=== PATIENT | male | born 1965 | race American Indian/Alaskan Native ===

== ENCOUNTER 2018-01-11 09:11 | Inpatient (IN) | payer BC ==
[2018-01-11 09:16] VITALS: BMI 26.6
[2018-01-11] MEDS ORDERED: Alum-Mag Hydrox-Simethicone Susp (30 mL) PO ONE (09:26)
--- NOTE | 2018-01-11 09:26 | C.PDOC ---
History Of Present Illness 52 y/o male with history of HTN, CKD brought by EMS with c/o burning cp and dizziness, felt as if he was going to pass out and laid on floor. Patient denies loc, sob, headache or any other complaints at this time. Chief Complaint (Nursing): Chest Pain History Per: Patient History/Exam Limitations: no limitations Onset/Duration Of Symptoms: Days Current Symptoms Are (Timing): Still Present Past Medical History Reviewed: Historical Data, Nursing Documentation, Vital Signs Vital Signs: Last Vital Signs Temp 97.7 F 01/11/18 09:11 Pulse 66 01/11/18 09:11 Resp 18 01/11/18 09:11 BP 139/102 H 01/11/18 09:11 Pulse Ox 96 01/11/18 09:11 - Medical History PMH: HTN Surgical History: No Surg Hx Family History: States: No Known Family Hx - Social History Hx Alcohol Use: No Hx Substance Use: No - Immunization History Hx Tetanus Toxoid Vaccination: Yes Hx Influenza Vaccination: Yes Hx Pneumococcal Vaccination: Yes Review Of Systems Except As Marked, All Systems Reviewed And Found Negative. Cardiovascular: Positive for: Chest Pain Neurological: Positive for: Dizziness Physical Exam - Physical Exam Appears: Non-toxic, No Acute Distress Skin: Warm, Dry Head: Atraumatic, Normacephalic Eye(s): bilateral: Normal Inspection Oral Mucosa: Moist Neck: Normal ROM, Supple Chest: Symmetrical Cardiovascular: Rhythm Regular Respiratory: Normal Breath Sounds, No Rales, No Rhonchi, No Wheezing Gastrointestinal/Abdominal: Soft, No Tenderness, No Guarding, No Rebound Extremity: Normal ROM, No Pedal Edema, Capillary Refill (<2 seconds) Neurological/Psych: Oriented x3, Normal Speech, Normal Cognition ED Course And Treatment - Laboratory Results Result Diagrams: 01/15/18 06:02 01/15/18 06:02 ECG: Interpreted By Me, Viewed By Me ECG Rhythm: Sinus Rhythm Interpretation Of ECG: T wave inversion in V2, Normal access Rate From EC O2 Sat by Pulse Oximetry: 96 (RA) Pulse Ox Interpretation: Normal Medical Decision Making Medical Decision Making: Impression: Near syncope, Dizziness, Chest pain Plan: Blood work, UA, CXR, EKG Progress: Dr. Umanzor called back @ [phone] and instructed nephrology consult on patient. 2nd ECG : NSR @83BPM, Inverted T wave on V5-V6, II,, III, aVF Disposition - Disposition Disposition: HOSPITALIZED Disposition Time: 11:15 Condition: SERIOUS - Clinical Impression Clinical Impression: Chest pain, Acute non-ST segment elevation myocardial infarction - Ruthieibe Statement The provider has reviewed the documentation as recorded by the Dieudonne Tena All medical record entries made by the Ruthieibadrienne were at my direction and personally dictated by me. I have reviewed the chart and agree that the record accurately reflects my personal performance of the history, physical exam, medical decision making, and the department course for this patient. I have also personally directed, reviewed, and agree with the discharge instructions and disposition.
[2018-01-11 09:35] LABS: BASO % 0.7 % (0.0-2.0); EOS # 0.5 K/uL (0.0-0.7); EOS % 6.8 % (0.0-4.0); HEMOGLOBIN 12.7 g/dL (12.0-18.0); LYMPH # 2.4 K/uL (1.0-4.3); LYMPH % 33.3 % (20.0-40.0); MEAN CELL VOLUME 80.6 fL (80.0-94.0); MEAN CORPUSCULAR HEMOGLOBIN 26.6 pg (27.0-31.0); MEAN PLATELET VOLUME 7.6 fL (7.2-11.7); MONO # 0.4 K/uL (0.0-0.8); MONO % 6.2 % (0.0-10.0); NEUT # 3.8 K/uL (1.8-7.0); NRBC % 0.2 % (0.0-2.0); RBC 4.77 Mil/uL (4.40-5.90); RED CELL DISTRIBUTION WIDTH 13.3 % (11.5-14.5); WHITE BLOOD COUNT 7.1 K/uL (4.8-10.8)
[2018-01-11 09:47] LABS: ALB/GLOB RATIO 1.2 (1.0-2.1); ALBUMIN 3.8 g/dL (3.5-5.0); CALCIUM 9.4 mg/dl (8.6-10.4)
[2018-01-11] MEDS ORDERED: Aluminum Hydroxide/Magnesium Hydroxide Susp (30 mL) ONE (09:48)
--- NOTE | 2018-01-11 09:49 | RAD ---
Date of service: 01/11/2018 PROCEDURE: CHEST RADIOGRAPH, 1 VIEW HISTORY: Chest pain COMPARISON: None available. FINDINGS: LUNGS: The lungs are well inflated and clear. PLEURA: No pneumothorax or pleural fluid seen. CARDIOVASCULAR: Normal. OSSEOUS STRUCTURES: No significant abnormalities. VISUALIZED UPPER ABDOMEN: Normal. OTHER FINDINGS: None. IMPRESSION: No active pulmonary disease.
[2018-01-11 10:25] LABS: TROPONIN I 0.155 ng/mL (0.00-0.120)
[2018-01-11] MEDS ORDERED: Enoxaparin 80 mg Syringe SC STA (11:51)
[2018-01-11] MEDS ORDERED: Morphine 4 MG/ML VIAL IV ONE (11:51)
[2018-01-11] MEDS ORDERED: Enoxaparin 80 mg Syringe ONE (12:16)
[2018-01-11] MEDS ORDERED: Morphine 4 MG/ML VIAL ONE ×2 (12:17→19:10)
[2018-01-11] MEDS ORDERED: Metoprolol 1 mg/ml Inj IVP ONE (16:32)
[2018-01-11] MEDS ORDERED: Metoprolol Succinate 25 mg XL Tab PO ONE (16:32)
[2018-01-11] MEDS ORDERED: Metoprolol 1 mg/ml Inj ONE (17:04)
--- NOTE | 2018-01-11 17:29 | CP.PCM.HP ---
History of Present Illness - History of Present Illness History of Present Illness: wake up with chest pain burning feeling epigastric dizzy and like paasing out Present on Admission - Present on Admission Any Indicators Present on Admission: No Review of Systems - Review of Systems Systems not reviewed;Unavailable: Acuity of Condition, Unstable Vital Signs Review of Systems: bp 180 systolic - Constitutional Constitutional: As Per HPI - EENT Eyes: As Per HPI Ears: As Per HPI Nose/Mouth/Throat: As Per HPI - Cardiovascular Cardiovascular: Chest Pain at Rest, Lightheadedness - Respiratory Respiratory: As Per HPI - Gastrointestinal Gastrointestinal: Heartburn - Genitourinary Genitourinary: As Per HPI - Reproductive: Male Reproductive:Male: As Per HPI - Musculoskeletal Musculoskeletal: As Per HPI - Integumentary Integumentary: As Per HPI - Neurological Neurological: As Per HPI - Psychiatric Psychiatric: As Per HPI - Endocrine Endocrine: As Per HPI, Polyuria Additional Comments: dm - Hematologic/Lymphatic Hematologic: As Per HPI Past Patient History - Past Medical History & Family History Past Medical History?: Yes - Past Social History Smoking Status: Never Smoked - CARDIAC Hx Hypertension: Yes - RENAL Hx Renal Failure: Yes - PSYCHIATRIC Hx Substance Use: No - SURGICAL HISTORY Hx Surgeries: No - ANESTHESIA Hx Anesthesia: Yes Meds Allergies/Adverse Reactions: Allergies Allergy/AdvReac Type Severity Reaction Status Date / Time No Known Allergies Allergy Verified 01/11/18 10:46 Physical Exam - Constitutional Appears: Non-toxic - Head Exam Head Exam: NORMAL INSPECTION - Eye Exam Eye Exam: Normal appearance Pupil Exam: NORMAL ACCOMODATION - ENT Exam ENT Exam: Mucous Membranes Moist - Neck Exam Neck exam: Positive for: Normal Inspection - Respiratory Exam Respiratory Exam: NORMAL BREATHING PATTERN - Cardiovascular Exam Cardiovascular Exam: REGULAR RHYTHM - GI/Abdominal Exam GI & Abdominal Exam: Normal Bowel Sounds - Rectal Exam Rectal Exam: NORMAL INSPECTION - Exam Exam: NORMAL INSPECTION - Extremities Exam Extremities exam: Positive for: normal inspection - Back Exam Back exam: NORMAL INSPECTION - Neurological Exam Neurological exam: Alert, Oriented x3 - Psychiatric Exam Psychiatric exam: Normal Mood - Skin Skin Exam: Normal Color Results - Vital Signs Recent Vital Signs: Last Vital Signs Temp 99.0 F 01/11/18 16:28 Pulse 85 01/11/18 16:28 Resp 20 01/11/18 16:28 BP 180/119 H 01/11/18 16:28 Pulse Ox 100 01/11/18 16:28 - Labs Result Diagrams: 01/11/18 09:31 01/11/18 09:31 Labs: Laboratory Results - last 24 hr 01/11/18 01/11/18 01/11/18 09:31 09:31 16:54 WBC 7.1 RBC 4.77 Hgb 12.7 Hct 38.5 MCV 80.6 MCH 26.6 L MCHC 33.0 RDW 13.3 Plt Count 234 MPV 7.6 Neut % (Auto) 53.0 Lymph % (Auto) 33.3 [place] % (Auto) 6.2 Eos % (Auto) 6.8 H Baso % (Auto) 0.7 Neut # (Auto) 3.8 Lymph # (Auto) 2.4 [place] # (Auto) 0.4 Eos # (Auto) 0.5 Baso # (Auto) 0.0 Sodium 139 Potassium 3.8 Chloride 104 Carbon Dioxide 21 L Anion Gap 18 BUN 42 H Creatinine 4.8 H Est GFR ( Amer) 15 Est GFR (Non-Af Amer) 13 Random Glucose 177 H Calcium 9.4 Total Bilirubin 0.6 AST 17 ALT 17 L Alkaline Phosphatase 91 Total Creatine Kinase 1040 H Troponin I 0.1550 H* Total Protein 7.0 Albumin 3.8 Globulin 3.3 Albumin/Globulin Ratio 1.2 Assessment & Plan - Assessment and Plan (Free Text) Assessment: ac chest pain htn dm crf Plan: admit and as per orders - Date & Time Date: 01/11/18 Time: 17:32
[2018-01-11 17:31] LABS: TROPONIN I 5.9 ng/mL (0.00-0.120)
[2018-01-11] MEDS ORDERED: Heparin25000 units/250ml 1/2NS 25,000 UNITS/250 ML BAG IV PRN ×2 (17:43→23:00)
[2018-01-11 18:38] LABS: INR 1.1; PROTHROMBIN TIME 11.8 SECONDS (9.7-12.2)
--- NOTE | 2018-01-11 19:02 | CP.PCM.CON ---
<Mumtaz Johansen L - Last Filed: 01/11/18 19:23> History of Present Illness - History of Present Illness History of Present Illness: Critical Care Progress Note Patient is a 52 year old male with past medical history of HTN, CKD presenting with chief complaint of chest pain. He states that around 8AM this morning he was walking when he began feeling dizzy. Soon after he started experiencing a burning sensation localized to his epigastric region, accompanied by diaphoresis and chills. He rates the pain a +8/10, denies radiation of the pain, or any difference in pain with positional changes. At that time he also began to feel as if he was about to pass out, which prompted his arrival at the ED. Currently he denies headache, dizziness, shortness of breath, abdominal pain, changes in bowel movements, dysuria. Of note, patient follows up regularly with a background check coordinator Dr. Reddy Bruce. Patient was found to have an NSTEMI and so ICU was consulted. In ED he was given morphine, metoprolol, hydralazine, famotidine, lovenox, aluminum hydroxide. PMH: HTN, CKD PSH: none Social history: Denies alcohol, tobacco product, illicit drug use. Lives at home with and two kids. Works as a selector packer. Family history: Father (85 yo, HTN) Mother ( at 58 due to complications of asthma) Allergies: NKDA PMD: none Review of Systems - Review of Systems All systems: reviewed and no additional remarkable complaints except (as stated in HPI) Past Patient History - Past Medical History & Family History Past Medical History?: Yes - Past Social History Smoking Status: Never Smoked Alcohol: None Drugs: Denies Home Situation {Lives}: With Family - CARDIAC Hx Hypertension: Yes - RENAL Hx Renal Failure: Yes - PSYCHIATRIC Hx Substance Use: No - SURGICAL HISTORY Hx Surgeries: No - ANESTHESIA Hx Anesthesia: Yes Meds Allergies/Adverse Reactions: Allergies Allergy/AdvReac Type Severity Reaction Status Date / Time No Known Allergies Allergy Verified 01/11/18 10:46 - Medications Medications: Current Medications Aspirin (Aspirin Chewable) 81 mg PO DAILY [facility] Clopidogrel Bisulfate (Plavix) 75 mg PO DAILY [facility] Last Admin: 01/11/18 17:56 Dose: 75 mg Hydralazine HCl (Apresoline) 50 mg PO BID [facility] Last Admin: 01/11/18 17:56 Dose: 50 mg Heparin Sodium/Sodium Chloride (Heparin 90048 Units/250ml 1/2 Normal Saline) 25,000 units in 250 mls @ 10.124 mls/hr IV .Q24H PRN; Protocol PRN Reason: PROTOCOL Pantoprazole Sodium (Protonix Inj) 40 mg IVP DAILY [facility] Physical Exam - Constitutional Appears: No Acute Distress - Head Exam Head Exam: ATRAUMATIC, NORMOCEPHALIC - Eye Exam Eye Exam: EOMI, Normal appearance, PERRL - ENT Exam ENT Exam: Mucous Membranes Moist, Normal Exam - Neck Exam Neck exam: Positive for: Normal Inspection - Respiratory Exam Respiratory Exam: Rales, NORMAL BREATHING PATTERN. absent: Rhonchi, Wheezes, Respiratory Distress, Stridor - Cardiovascular Exam Cardiovascular Exam: REGULAR RHYTHM, +S1, +S2 - GI/Abdominal Exam GI & Abdominal Exam: Normal Bowel Sounds, Soft. absent: Distended, Firm, Guarding, Organomegaly, Rebound, Rigid, Tenderness - Extremities Exam Extremities exam: Positive for: normal capillary refill, normal inspection, pedal pulses present. Negative for: pedal edema - Back Exam Back exam: NORMAL INSPECTION - Neurological Exam Neurological exam: Alert, CN II-XII Intact, Oriented x3, Reflexes Normal - Psychiatric Exam Psychiatric exam: Normal Affect, Normal Mood - Skin Skin Exam: Dry, Intact, Normal Color, Warm Results - Vital Signs Recent Vital Signs: Last Vital Signs Temp 99.0 F 01/11/18 16:28 Pulse 85 01/11/18 18:22 Resp 21 01/11/18 18:22 BP 177/127 H 01/11/18 18:22 Pulse Ox 97 01/11/18 18:22 - Labs Result Diagrams: 01/11/18 09:31 01/11/18 09:31 Labs: Laboratory Results - last 24 hr 01/11/18 01/11/18 01/11/18 09:31 09:31 16:54 WBC 7.1 RBC 4.77 Hgb 12.7 Hct 38.5 MCV 80.6 MCH 26.6 L MCHC 33.0 RDW 13.3 Plt Count 234 MPV 7.6 Neut % (Auto) 53.0 Lymph % (Auto) 33.3 [place] % (Auto) 6.2 Eos % (Auto) 6.8 H Baso % (Auto) 0.7 Neut # (Auto) 3.8 Lymph # (Auto) 2.4 [place] # (Auto) 0.4 Eos # (Auto) 0.5 Baso # (Auto) 0.0 PT INR APTT Sodium 139 Potassium 3.8 Chloride 104 Carbon Dioxide 21 L Anion Gap 18 BUN 42 H Creatinine 4.8 H Est GFR ( Amer) 15 Est GFR (Non-Af Amer) 13 Random Glucose 177 H Calcium 9.4 Total Bilirubin 0.6 AST 17 ALT 17 L Alkaline Phosphatase 91 Total Creatine Kinase 1040 H CK-MB (Mass) 103 H Troponin I 0.1550 H* 5.9000 H* Total Protein 7.0 Albumin 3.8 Globulin 3.3 Albumin/Globulin Ratio 1.2 01/11/18 18:22 WBC RBC Hgb Hct MCV MCH MCHC RDW Plt Count MPV Neut % (Auto) Lymph % (Auto) [place] % (Auto) Eos % (Auto) Baso % (Auto) Neut # (Auto) Lymph # (Auto) [place] # (Auto) Eos # (Auto) Baso # (Auto) PT 11.8 INR 1.1 APTT 30 Sodium Potassium Chloride Carbon Dioxide Anion Gap BUN Creatinine Est GFR ( Amer) Est GFR (Non-Af Amer) Random Glucose Calcium Total Bilirubin AST ALT Alkaline Phosphatase Total Creatine Kinase CK-MB (Mass) Troponin I Total Protein Albumin Globulin Albumin/Globulin Ratio Assessment & Plan - Assessment and Plan (Free Text) Assessment: Patient is a 52 year old male with past medical history of HTN, CKD presenting with chief complaint of chest pain and was admitted to ICU for workup and management of NSTEMI. Plan: Neuro: - AAO x3 Pulm: - nasal cannula PRN - maintain SpO2>92% CV: - currently hemodynamically stable - Cardiology Dr. Umanzor consulted. Appreciate recs. - aspirin 81 mg PO daily, plavix 75 mg PO daily - heparin drip - hydralazine 50 mg PO BID - followup ECHO GI: - Protonix 40 mg IVP daily - HHD Renal: - history of CKD, Cr 4.8 - Nephrology Dr. Pérez consulted. Appreciate recs. ID: - afebrile, no leukocytosis - no acute issues Heme/Onc - monitor H/H Endo: - maintain euglycemia PPX: Protonix 40 mg IVP daily, on heparin drip Case and plan was reviewed and discussed with Dr. Galdino Johansen PGY-1 - Date & Time Date: 01/11/18 Time: 19:10 <Shahid Ahmadi - Last Filed: 01/11/18 20:04> Meds - Medications Medications: Current Medications Aspirin (Aspirin Chewable) 81 mg PO DAILY [facility] Clopidogrel Bisulfate (Plavix) 75 mg PO DAILY [facility] Last Admin: 01/11/18 17:56 Dose: 75 mg Hydralazine HCl (Apresoline) 50 mg PO BID [facility] Last Admin: 01/11/18 17:56 Dose: 50 mg Heparin Sodium/Sodium Chloride (Heparin 23200 Units/250ml 1/2 Normal Saline) 25,000 units in 250 mls @ 10.124 mls/hr IV .Q24H PRN; Protocol PRN Reason: PROTOCOL Metoprolol Succinate (Toprol Xl) 25 mg PO DAILY [facility] Pantoprazole Sodium (Protonix Inj) 40 mg IVP DAILY [facility] Rosuvastatin Calcium (Crestor) 20 mg PO [facility] Results - Vital Signs Recent Vital Signs: Last Vital Signs Temp 99.0 F 01/11/18 16:28 Pulse 79 01/11/18 19:44 Resp 16 01/11/18 19:44 BP 166/97 H 01/11/18 19:44 Pulse Ox 100 01/11/18 19:44 - Labs Result Diagrams: 01/11/18 09:31 01/11/18 09:31 Labs: Laboratory Results - last 24 hr 01/11/18 01/11/18 01/11/18 09:31 09:31 16:54 WBC 7.1 RBC 4.77 Hgb 12.7 Hct 38.5 MCV 80.6 MCH 26.6 L MCHC 33.0 RDW 13.3 Plt Count 234 MPV 7.6 Neut % (Auto) 53.0 Lymph % (Auto) 33.3 [place] % (Auto) 6.2 Eos % (Auto) 6.8 H Baso % (Auto) 0.7 Neut # (Auto) 3.8 Lymph # (Auto) 2.4 [place] # (Auto) 0.4 Eos # (Auto) 0.5 Baso # (Auto) 0.0 PT INR APTT Sodium 139 Potassium 3.8 Chloride 104 Carbon Dioxide 21 L Anion Gap 18 BUN 42 H Creatinine 4.8 H Est GFR ( Amer) 15 Est GFR (Non-Af Amer) 13 Random Glucose 177 H Calcium 9.4 Total Bilirubin 0.6 AST 17 ALT 17 L Alkaline Phosphatase 91 Total Creatine Kinase 1040 H CK-MB (Mass) 103 H Troponin I 0.1550 H* 5.9000 H* Total Protein 7.0 Albumin 3.8 Globulin 3.3 Albumin/Globulin Ratio 1.2 01/11/18 18:22 WBC RBC Hgb Hct MCV MCH MCHC RDW Plt Count MPV Neut % (Auto) Lymph % (Auto) [place] % (Auto) Eos % (Auto) Baso % (Auto) Neut # (Auto) Lymph # (Auto) [place] # (Auto) Eos # (Auto) Baso # (Auto) PT 11.8 INR 1.1 APTT 30 Sodium Potassium Chloride Carbon Dioxide Anion Gap BUN Creatinine Est GFR ( Amer) Est GFR (Non-Af Amer) Random Glucose Calcium Total Bilirubin AST ALT Alkaline Phosphatase Total Creatine Kinase CK-MB (Mass) Troponin I Total Protein Albumin Globulin Albumin/Globulin Ratio Assessment & Plan - Assessment and Plan (Free Text) Plan: CCM 52 yo black male with hx HTN/CKD developed dizziness & weakness in AM. Subsequent sob & epigastric discomfort with diaphoresis. Pt to ED and vomited. Pain initially 10/10 now 7/10. Received NTG /BB /hydralazine. BP elevated in ED. No fever/ cough. Breathing better. ROS- asnoted All- NKDA Social- no tob/ etoh/ drugs Meds-reviewed FH- Unknown Alert male, nad Neck- no jvd lungs- bilat bs Heart-rr Abd- benign ext- no edema, nontender Neuro- nonfocal Labs, EKG,X-rays- reviewed A&P NSTEMI HTN Emergency CKD Admit to ICU cont meds /asa/plavix/ BB AC Optimize BP control Cardiology eval Nephrology eval ECHO Maintain optimal lytes f/u CE analgesia prn Critical care time with patient 40 min
[2018-01-11] MEDS ORDERED: Labetalol 5mg/ml (4ml) ONE (19:11)
[2018-01-11] MEDS ORDERED: Nitroglycerin 50mg in D5W 50 MG/250 ML BOTTLE IV SCH (21:00)
[2018-01-11] MEDS ORDERED: Labetalol 300 MG in Dextrose 5% In Water 240 ML IV ONE (21:45)
--- NOTE | 2018-01-11 23:06 | CP.PCM.CON ---
History of Present Illness - History of Present Illness History of Present Illness: 52 M with hx of CKD admitted with chest pain and non ST elevation CT Check ECHO Patient needs cardiac cath Need Renal evaluation clearance for Cath IV Heparin, ASA, Plavix, statins and B blockers Past Patient History - Past Medical History & Family History Past Medical History?: Yes - Past Social History Smoking Status: Never Smoked Alcohol: None Drugs: Denies Home Situation {Lives}: With Family - CARDIAC Hx Hypertension: Yes - RENAL Hx Renal Failure: Yes - PSYCHIATRIC Hx Substance Use: No - SURGICAL HISTORY Hx Surgeries: No - ANESTHESIA Hx Anesthesia: Yes Meds Allergies/Adverse Reactions: Allergies Allergy/AdvReac Type Severity Reaction Status Date / Time No Known Allergies Allergy Verified 01/11/18 10:46 - Medications Medications: Current Medications Aspirin (Aspirin Chewable) 81 mg PO DAILY [facility] Clopidogrel Bisulfate (Plavix) 75 mg PO DAILY [facility] Last Admin: 01/11/18 17:56 Dose: 75 mg Hydralazine HCl (Apresoline) 50 mg PO BID [facility] Last Admin: 01/11/18 17:56 Dose: 50 mg Heparin Sodium/Sodium Chloride (Heparin 19108 Units/250ml 1/2 Normal Saline) 25,000 units in 250 mls @ 10.124 mls/hr IV .Q24H PRN; Protocol PRN Reason: PROTOCOL Last Admin: 01/11/18 20:45 Dose: 12 units/kg/hr, 10.124 mls/hr Nitroglycerin/Dextrose (Nitroglycerin 50 Mg/250 Ml D5w) 50 mg in 250 mls @ 1.5 mls/hr IV .Q24H [facility]; Protocol Last Titration: 01/11/18 21:45 Dose: 0 mcg/min, 0 mls/hr Labetalol HCl 300 mg/ Dextrose 300 mls @ 120 mls/hr IV .Q2H30M ONE; Protocol Stop: 01/12/18 00:14 Metoprolol Succinate (Toprol Xl) 25 mg PO DAILY [facility] Pantoprazole Sodium (Protonix Inj) 40 mg IVP DAILY [facility] Rosuvastatin Calcium (Crestor) 20 mg PO HS [facility] Last Admin: 01/11/18 21:17 Dose: 20 mg Results - Vital Signs Recent Vital Signs: Last Vital Signs Temp 98.7 F 01/11/18 20:00 Pulse 72 01/11/18 22:30 Resp 15 01/11/18 22:30 BP 142/96 H 01/11/18 22:30 Pulse Ox 97 01/11/18 22:30 - Labs Result Diagrams: 01/11/18 09:31 01/11/18 09:31 Labs: Laboratory Results - last 24 hr 01/11/18 01/11/18 01/11/18 09:31 09:31 16:54 WBC 7.1 RBC 4.77 Hgb 12.7 Hct 38.5 MCV 80.6 MCH 26.6 L MCHC 33.0 RDW 13.3 Plt Count 234 MPV 7.6 Neut % (Auto) 53.0 Lymph % (Auto) 33.3 [place] % (Auto) 6.2 Eos % (Auto) 6.8 H Baso % (Auto) 0.7 Neut # (Auto) 3.8 Lymph # (Auto) 2.4 [place] # (Auto) 0.4 Eos # (Auto) 0.5 Baso # (Auto) 0.0 PT INR APTT Sodium 139 Potassium 3.8 Chloride 104 Carbon Dioxide 21 L Anion Gap 18 BUN 42 H Creatinine 4.8 H Est GFR ( Amer) 15 Est GFR (Non-Af Amer) 13 POC Glucose (mg/dL) Random Glucose 177 H Calcium 9.4 Total Bilirubin 0.6 AST 17 ALT 17 L Alkaline Phosphatase 91 Total Creatine Kinase 1040 H CK-MB (Mass) 103 H Troponin I 0.1550 H* 5.9000 H* Total Protein 7.0 Albumin 3.8 Globulin 3.3 Albumin/Globulin Ratio 1.2 01/11/18 01/11/18 18:22 21:17 WBC RBC Hgb Hct MCV MCH MCHC RDW Plt Count MPV Neut % (Auto) Lymph % (Auto) [place] % (Auto) Eos % (Auto) Baso % (Auto) Neut # (Auto) Lymph # (Auto) [place] # (Auto) Eos # (Auto) Baso # (Auto) PT 11.8 INR 1.1 APTT 30 Sodium Potassium Chloride Carbon Dioxide Anion Gap BUN Creatinine Est GFR ( Amer) Est GFR (Non-Af Amer) POC Glucose (mg/dL) 115 H Random Glucose Calcium Total Bilirubin AST ALT Alkaline Phosphatase Total Creatine Kinase CK-MB (Mass) Troponin I Total Protein Albumin Globulin Albumin/Globulin Ratio
[2018-01-12 06:43] LABS: BASO # 0.1 K/uL (0.0-0.2); BASO % 0.6 % (0.0-2.0); EOS % 0.3 % (0.0-4.0); HEMOGLOBIN 12.5 g/dL (12.0-18.0); MEAN CELL VOLUME 81.7 fL (80.0-94.0); MEAN CORPUSCULAR HEMOGLOBIN 26.6 pg (27.0-31.0); MEAN CORPUSCULAR HGB CONC 32.5 g/dL (33.0-37.0); MEAN PLATELET VOLUME 8.3 fL (7.2-11.7); MONO # 0.7 K/uL (0.0-0.8); MONO % 7.2 % (0.0-10.0); NEUT # 8.2 K/uL (1.8-7.0); NEUT % 81.9 % (50.0-75.0); NRBC % 0.1 % (0.0-2.0); RBC 4.7 Mil/uL (4.40-5.90); RED CELL DISTRIBUTION WIDTH 13.4 % (11.5-14.5)
[2018-01-12 06:56] LABS: CALCIUM 9.3 mg/dl (8.6-10.4)
[2018-01-12] MEDS ORDERED: Sodium Chloride 0.45% 1,000 ML IV ONE ×2 (09:02→12:40)
[2018-01-12] MEDS: Metoprolol Succinate 25 mg XL Tab PO SCH (10:16)
[2018-01-12] MEDS ORDERED: Lidocaine 2% PF (10 ml) Amp ONE (10:51)
--- NOTE | 2018-01-12 11:03 | CP.CCUPN ---
<Mumtaz Johansen L - Last Filed: 01/12/18 12:31> CCU Subjective - Physician Review Subjective (Free Text): Critical Care Progress Note Patient examined at bedside. He is resting comfortably in bed. Offers no complaints. Denies fevers, chills, chest pain, shortness of breath, abdominal pain, nausea, vomiting. Patient to receive cardiac cath today. Critical Care Time Spent (in minutes): 35 CCU Objective - Vital Signs / Intake & Output Vital Signs (Last 4 hours): Vital Signs Pulse Resp BP Pulse Ox 01/12/18 07:00 83 15 121/82 100 Intake and Output (Last 8hrs): Intake & Output 01/11/18 01/12/18 01/12/18 22:59 06:59 14:59 Intake Total 140.45 132.7 230.0 Output Total 400 300 Balance -259.55 -167.3 230.0 Weight 184 lb 14.4 oz Intake: IV 5.15 62.5 Intake, IV Amount 35.3 70.2 30.0 Left Forearm 30.0 RAC #18 5 10.5 Right Antecubital 30.3 59.7 Oral 100 200 Output: Urine 300 Urine, Voided 300 Emesis 400 Other: Voiding Method Urinal - Physical Exam Head: Positive for: Atraumatic, Normocephalic Pupils: Positive for: PERRL Extroacular Muscles: Positive for: EOMI Conjunctiva: Positive for: Normal Mouth: Positive for: Moist Mucous Membranes Respiratory/Chest: Positive for: Good Air Exchange, Rales. Negative for: Respiratory Distress Cardiovascular: Positive for: Regular Rate and Rhythm, Normal S1, S2 Abdomen: Positive for: Normal Bowel Sounds. Negative for: Tenderness, Distention Upper Extremity: Positive for: Normal Inspection, Normal ROM, NORMAL PULSES. Negative for: Cyanosis, Edema, Tenderness, Swelling Lower Extremity: Positive for: Normal Inspection, NORMAL PULSES, Normal ROM. Negative for: Edema, CALF TENDERNESS, Cyanosis Neurological: Positive for: GCS=15, CN II-XII Intact, Speech Normal Skin: Positive for: Warm, Dry, Normal Color. Negative for: Rashes Psychiatric: Positive for: Alert, Oriented x 3, Normal Insight, Normal Concentration - Medications Active Medications: Active Medications Generic Name Dose Route Start Last Admin Trade Name Freq PRN Reason Stop Dose Admin Aspirin 81 mg 01/12/18 10:00 Aspirin Chewable PO DAILY GERSON Clopidogrel Bisulfate 75 mg 01/11/18 17:45 01/11/18 17:56 Plavix PO 75 mg DAILY GERSON Administration Hydralazine HCl 50 mg 01/11/18 18:00 01/11/18 17:56 Apresoline PO 50 mg BID GERSON Administration Heparin Sodium/Sodium Chloride 25,000 units in 250 mls @ 10.124 mls/hr 01/11/18 23:00 01/12/18 02:45 Heparin 38130 Units/250ml 1/2 Normal Saline IV 9 units/kg/hr .Q24H PRN 7.593 mls/hr PROTOCOL Titration Protocol 12 UNITS/KG/HR Nitroglycerin/Dextrose 50 mg in 250 mls @ 1.5 mls/hr 01/11/18 21:00 01/12/18 06:00 Nitroglycerin 50 Mg/250 Ml D5w IV 0 mcg/min .Q24H GERSON 0 mls/hr Titration Protocol 5 MCG/MIN Sodium Chloride 1,000 mls @ 80 mls/hr 01/12/18 09:02 Sodium Chloride 0.45% IV 01/12/18 21:31 .[id number] ONE Metoprolol Succinate 25 mg 01/12/18 10:00 Toprol Xl PO DAILY [facility] Pantoprazole Sodium 40 mg 01/12/18 10:00 Protonix Inj IVP DAILY [facility] Rosuvastatin Calcium 20 mg 01/11/18 22:00 01/11/18 21:17 Crestor PO 20 mg HS GERSON Administration - Patient Studies Lab Studies: Lab Studies 01/12/18 01/12/18 01/12/18 Range/Units 07:47 06:32 06:32 WBC (4.8-10.8) K/uL RBC (4.40-5.90) Mil/uL Hgb (12.0-18.0) g/dL Hct (35.0-51.0) % MCV (80.0-94.0) fL MCH (27.0-31.0) pg MCHC (33.0-37.0) g/dL RDW (11.5-14.5) % Plt Count (130-400) K/uL MPV (7.2-11.7) fL Neut % (Auto) (50.0-75.0) % Lymph % (Auto) (20.0-40.0) % [place] % (Auto) (0.0-10.0) % Eos % (Auto) (0.0-4.0) % Baso % (Auto) (0.0-2.0) % Neut # (Auto) (1.8-7.0) K/uL Lymph # (Auto) (1.0-4.3) K/uL [place] # (Auto) (0.0-0.8) K/uL Eos # (Auto) (0.0-0.7) K/uL Baso # (Auto) (0.0-0.2) K/uL PT (9.7-12.2) SECONDS INR APTT 71 H D (21-34) SECONDS Sodium 140 (132-148) mmol/L Potassium 4.1 (3.6-5.2) mmol/L Chloride 102 (98-107) mmol/L Carbon Dioxide 28 (22-30) mmol/L Anion Gap 15 (10-20) BUN 41 H (9-20) mg/dL Creatinine 4.8 H (0.8-1.5) mg/dL Est GFR ( Amer) 15 Est GFR (Non-Af Amer) 13 POC Glucose (mg/dL) (65-110) mg/dL Random Glucose 128 H (75-110) mg/dL Hemoglobin A1c (4.2-6.5) % Calcium 9.3 (8.6-10.4) mg/dl Magnesium (1.6-2.3) mg/dL Total Creatine Kinase 8891 H (55-170) U/L CK-MB (Mass) 826 H (0.0-3.38) ng/mL Troponin I 487.0000 H* (0.00-0.120) ng/mL Triglycerides 67 (0-149) mg/dL Cholesterol 216 H (0-199) mg/dL LDL Cholesterol Direct 141 H (0-129) mg/dL HDL Cholesterol 44 (30-70) mg/dL TSH 3rd Generation 1.54 (0.46-4.68) mIU/L 01/12/18 01/12/18 01/12/18 Range/Units 06:31 06:31 02:29 WBC 10.0 (4.8-10.8) K/uL RBC 4.70 (4.40-5.90) Mil/uL Hgb 12.5 (12.0-18.0) g/dL Hct 38.4 (35.0-51.0) % MCV 81.7 (80.0-94.0) fL MCH 26.6 L (27.0-31.0) pg MCHC 32.5 L (33.0-37.0) g/dL RDW 13.4 (11.5-14.5) % Plt Count 189 (130-400) K/uL MPV 8.3 (7.2-11.7) fL Neut % (Auto) 81.9 H (50.0-75.0) % Lymph % (Auto) 10.0 L (20.0-40.0) % [place] % (Auto) 7.2 (0.0-10.0) % Eos % (Auto) 0.3 (0.0-4.0) % Baso % (Auto) 0.6 (0.0-2.0) % Neut # (Auto) 8.2 H (1.8-7.0) K/uL Lymph # (Auto) 1.0 (1.0-4.3) K/uL [place] # (Auto) 0.7 (0.0-0.8) K/uL Eos # (Auto) 0.0 (0.0-0.7) K/uL Baso # (Auto) 0.1 (0.0-0.2) K/uL PT (9.7-12.2) SECONDS INR APTT (21-34) SECONDS Sodium (132-148) mmol/L Potassium (3.6-5.2) mmol/L Chloride (98-107) mmol/L Carbon Dioxide (22-30) mmol/L Anion Gap (10-20) BUN (9-20) mg/dL Creatinine (0.8-1.5) mg/dL Est GFR ( Amer) Est GFR (Non-Af Amer) POC Glucose (mg/dL) (65-110) mg/dL Random Glucose (75-110) mg/dL Hemoglobin A1c 4.5 (4.2-6.5) % Calcium (8.6-10.4) mg/dl Magnesium 2.0 (1.6-2.3) mg/dL Total Creatine Kinase (55-170) U/L CK-MB (Mass) (0.0-3.38) ng/mL Troponin I (0.00-0.120) ng/mL Triglycerides (0-149) mg/dL Cholesterol (0-199) mg/dL LDL Cholesterol Direct (0-129) mg/dL HDL Cholesterol (30-70) mg/dL TSH 3rd Generation (0.46-4.68) mIU/L 01/12/18 01/12/18 01/11/18 Range/Units 01:19 01:19 21:17 WBC (4.8-10.8) K/uL RBC (4.40-5.90) Mil/uL Hgb (12.0-18.0) g/dL Hct (35.0-51.0) % MCV (80.0-94.0) fL MCH (27.0-31.0) pg MCHC (33.0-37.0) g/dL RDW (11.5-14.5) % Plt Count (130-400) K/uL MPV (7.2-11.7) fL Neut % (Auto) (50.0-75.0) % Lymph % (Auto) (20.0-40.0) % [place] % (Auto) (0.0-10.0) % Eos % (Auto) (0.0-4.0) % Baso % (Auto) (0.0-2.0) % Neut # (Auto) (1.8-7.0) K/uL Lymph # (Auto) (1.0-4.3) K/uL [place] # (Auto) (0.0-0.8) K/uL Eos # (Auto) (0.0-0.7) K/uL Baso # (Auto) (0.0-0.2) K/uL PT (9.7-12.2) SECONDS INR APTT 134 H* D (21-34) SECONDS Sodium (132-148) mmol/L Potassium (3.6-5.2) mmol/L Chloride (98-107) mmol/L Carbon Dioxide (22-30) mmol/L Anion Gap (10-20) BUN (9-20) mg/dL Creatinine (0.8-1.5) mg/dL Est GFR ( Amer) Est GFR (Non-Af Amer) POC Glucose (mg/dL) 115 H (65-110) mg/dL Random Glucose (75-110) mg/dL Hemoglobin A1c (4.2-6.5) % Calcium (8.6-10.4) mg/dl Magnesium (1.6-2.3) mg/dL Total Creatine Kinase 6363 H (55-170) U/L CK-MB (Mass) 714 H (0.0-3.38) ng/mL Troponin I 198.0000 H* (0.00-0.120) ng/mL Triglycerides (0-149) mg/dL Cholesterol (0-199) mg/dL LDL Cholesterol Direct (0-129) mg/dL HDL Cholesterol (30-70) mg/dL TSH 3rd Generation (0.46-4.68) mIU/L 01/11/18 01/11/18 Range/Units 18:22 16:54 WBC (4.8-10.8) K/uL RBC (4.40-5.90) Mil/uL Hgb (12.0-18.0) g/dL Hct (35.0-51.0) % MCV (80.0-94.0) fL MCH (27.0-31.0) pg MCHC (33.0-37.0) g/dL RDW (11.5-14.5) % Plt Count (130-400) K/uL MPV (7.2-11.7) fL Neut % (Auto) (50.0-75.0) % Lymph % (Auto) (20.0-40.0) % [place] % (Auto) (0.0-10.0) % Eos % (Auto) (0.0-4.0) % Baso % (Auto) (0.0-2.0) % Neut # (Auto) (1.8-7.0) K/uL Lymph # (Auto) (1.0-4.3) K/uL [place] # (Auto) (0.0-0.8) K/uL Eos # (Auto) (0.0-0.7) K/uL Baso # (Auto) (0.0-0.2) K/uL PT 11.8 (9.7-12.2) SECONDS INR 1.1 APTT 30 (21-34) SECONDS Sodium (132-148) mmol/L Potassium (3.6-5.2) mmol/L Chloride (98-107) mmol/L Carbon Dioxide (22-30) mmol/L Anion Gap (10-20) BUN (9-20) mg/dL Creatinine (0.8-1.5) mg/dL Est GFR ( Amer) Est GFR (Non-Af Amer) POC Glucose (mg/dL) (65-110) mg/dL Random Glucose (75-110) mg/dL Hemoglobin A1c (4.2-6.5) % Calcium (8.6-10.4) mg/dl Magnesium (1.6-2.3) mg/dL Total Creatine Kinase 1040 H (55-170) U/L CK-MB (Mass) 103 H (0.0-3.38) ng/mL Troponin I 5.9000 H* (0.00-0.120) ng/mL Triglycerides (0-149) mg/dL Cholesterol (0-199) mg/dL LDL Cholesterol Direct (0-129) mg/dL HDL Cholesterol (30-70) mg/dL TSH 3rd Generation (0.46-4.68) mIU/L Laboratory Results - last 24 hr 01/11/18 01/11/18 01/11/18 16:54 18:22 21:17 WBC RBC Hgb Hct MCV MCH MCHC RDW Plt Count MPV Neut % (Auto) Lymph % (Auto) [place] % (Auto) Eos % (Auto) Baso % (Auto) Neut # (Auto) Lymph # (Auto) [place] # (Auto) Eos # (Auto) Baso # (Auto) PT 11.8 INR 1.1 APTT 30 Sodium Potassium Chloride Carbon Dioxide Anion Gap BUN Creatinine Est GFR ( Amer) Est GFR (Non-Af Amer) POC Glucose (mg/dL) 115 H Random Glucose Hemoglobin A1c Calcium Magnesium Total Creatine Kinase 1040 H CK-MB (Mass) 103 H Troponin I 5.9000 H* Triglycerides Cholesterol LDL Cholesterol Direct HDL Cholesterol TSH 3rd Generation 01/12/18 01/12/18 01/12/18 01:19 01:19 02:29 WBC RBC Hgb Hct MCV MCH MCHC RDW Plt Count MPV Neut % (Auto) Lymph % (Auto) [place] % (Auto) Eos % (Auto) Baso % (Auto) Neut # (Auto) Lymph # (Auto) [place] # (Auto) Eos # (Auto) Baso # (Auto) PT INR APTT 134 H* D Sodium Potassium Chloride Carbon Dioxide Anion Gap BUN Creatinine Est GFR ( Amer) Est GFR (Non-Af Amer) POC Glucose (mg/dL) Random Glucose Hemoglobin A1c Calcium Magnesium 2.0 Total Creatine Kinase 6363 H CK-MB (Mass) 714 H Troponin I 198.0000 H* Triglycerides Cholesterol LDL Cholesterol Direct HDL Cholesterol TSH 3rd Generation 01/12/18 01/12/18 01/12/18 06:31 06:31 06:32 WBC 10.0 RBC 4.70 Hgb 12.5 Hct 38.4 MCV 81.7 MCH 26.6 L MCHC 32.5 L RDW 13.4 Plt Count 189 MPV 8.3 Neut % (Auto) 81.9 H Lymph % (Auto) 10.0 L [place] % (Auto) 7.2 Eos % (Auto) 0.3 Baso % (Auto) 0.6 Neut # (Auto) 8.2 H Lymph # (Auto) 1.0 [place] # (Auto) 0.7 Eos # (Auto) 0.0 Baso # (Auto) 0.1 PT INR APTT Sodium 140 Potassium 4.1 Chloride 102 Carbon Dioxide 28 Anion Gap 15 BUN 41 H Creatinine 4.8 H Est GFR ( Amer) 15 Est GFR (Non-Af Amer) 13 POC Glucose (mg/dL) Random Glucose 128 H Hemoglobin A1c 4.5 Calcium 9.3 Magnesium Total Creatine Kinase CK-MB (Mass) Troponin I Triglycerides 67 Cholesterol 216 H LDL Cholesterol Direct 141 H HDL Cholesterol 44 TSH 3rd Generation 1.54 01/12/18 01/12/18 06:32 07:47 WBC RBC Hgb Hct MCV MCH MCHC RDW Plt Count MPV Neut % (Auto) Lymph % (Auto) [place] % (Auto) Eos % (Auto) Baso % (Auto) Neut # (Auto) Lymph # (Auto) [place] # (Auto) Eos # (Auto) Baso # (Auto) PT INR APTT 71 H D Sodium Potassium Chloride Carbon Dioxide Anion Gap BUN Creatinine Est GFR ( Amer) Est GFR (Non-Af Amer) POC Glucose (mg/dL) Random Glucose Hemoglobin A1c Calcium Magnesium Total Creatine Kinase 8891 H CK-MB (Mass) 826 H Troponin I 487.0000 H* Triglycerides Cholesterol LDL Cholesterol Direct HDL Cholesterol TSH 3rd Generation EKG/Cardiology Studies: Cardiology / EKG Studies 01/11/18 16:35 EKG [ELECTROCARDIOGRAM] Stat Comment: Mode Of Transportation: Reason For Exam: NSTEMI 01/11/18 18:00 ELECTROCARDIOGRAM DAILY Comment: Mode Of Transportation: Reason For Exam: NSTEMI 01/12/18 00:01 EKG [ELECTROCARDIOGRAM] Routine Comment: Mode Of Transportation: Reason For Exam: NSTEMI 01/12/18 04:00 EKG [ELECTROCARDIOGRAM] DAILY Comment: Mode Of Transportation: Reason For Exam: NSTEMI 01/13/18 04:00 EKG [ELECTROCARDIOGRAM] DAILY Comment: Mode Of Transportation: Reason For Exam: NSTEMI 01/14/18 04:00 EKG [ELECTROCARDIOGRAM] DAILY Comment: Mode Of Transportation: Reason For Exam: NSTEMI Fingerstick Blood Sugar Results: 115 Review of Systems - Review of Systems All systems: reviewed and no additional remarkable complaints except (as per HPI) Critical Care Progress Note - Nutrition Nutrition: Nutrition Category Date Time Status Heart Healthy Diet [DIET] Diets 01/11/18 Dinner Active Assessment/Plan - Assessment and Plan (Free Text) Assessment: Patient is a 52 year old male with past medical history of HTN, CKD presenting with chief complaint of chest pain and was admitted to ICU for workup and management of NSTEMI. Plan: Neuro: - AAO x3 Pulm: - nasal cannula - maintain SpO2>92% CV: - NSTEMI, troponins 487 this AM - Cardiology Dr. Umanzor consulted. Appreciate recs. - aspirin 81 mg PO daily, plavix 75 mg PO daily - heparin drip - hydralazine 50 mg PO BID - s/p cardiac cath, found to have LAD and LCX occlusions - patient to be transferred to [facility] for PCI GI: - Protonix 40 mg IVP daily - HHD Renal: - history of CKD, Cr 4.8 - Nephrology Dr. Pérez consulted. Appreciate recs. - plan for hemodialysis after stent placement ID: - afebrile, no leukocytosis - no acute issues Heme/Onc - monitor H/H Endo: - maintain euglycemia PPX: Protonix 40 mg IVP daily, on heparin drip Case and plan was reviewed and discussed with Dr. Barry Johansen PGY-1 - Date & Time Date: 01/12/18 Time: 08:00 <Antonio Reddy - Last Filed: 01/12/18 17:37> CCU Objective - Vital Signs / Intake & Output Intake and Output (Last 8hrs): Intake & Output 01/12/18 01/12/18 01/12/18 06:59 14:59 22:59 Intake Total 132.7 230.0 Output Total 300 Balance -167.3 230.0 Weight 184 lb 14.4 oz Intake: IV 62.5 Intake, IV Amount 70.2 30.0 Left Forearm 30.0 RAC #18 10.5 Right Antecubital 59.7 Oral 200 Output: Urine 300 Urine, Voided 300 - Medications Active Medications: Active Medications Generic Name Dose Route Start Last Admin Trade Name Freq PRN Reason Stop Dose Admin Aspirin 81 mg 01/12/18 10:00 01/12/18 10:15 Aspirin Chewable PO 81 mg DAILY GERSON Administration Heparin Sodium (Porcine) 5,000 units 01/13/18 08:00 Heparin SC Q8 GERSON Hydralazine HCl 50 mg 01/11/18 18:00 01/12/18 10:17 Apresoline PO Not Given BID [facility] Sodium Chloride 1,000 mls @ 60 mls/hr 01/12/18 12:40 Sodium Chloride 0.45% IV 01/13/18 01:41 .[id number] ONE Metoprolol Succinate 25 mg 01/12/18 10:00 01/12/18 10:16 Toprol Xl PO Not Given DAILY GERSON Pantoprazole Sodium 40 mg 01/12/18 10:00 01/12/18 10:16 Protonix Inj IVP 40 mg DAILY GERSON Administration Rosuvastatin Calcium 10 mg 01/12/18 12:07 Crestor PO HS GERSON Tamsulosin HCl 0.4 mg 01/13/18 10:00 Flomax PO DAILY GERSON Ticagrelor 90 mg 01/12/18 18:00 Brilinta PO BID GERSON - Patient Studies Lab Studies: Lab Studies 01/12/18 01/12/18 01/12/18 Range/Units 07:47 06:32 06:32 WBC (4.8-10.8) K/uL RBC (4.40-5.90) Mil/uL Hgb (12.0-18.0) g/dL Hct (35.0-51.0) % MCV (80.0-94.0) fL MCH (27.0-31.0) pg MCHC (33.0-37.0) g/dL RDW (11.5-14.5) % Plt Count (130-400) K/uL MPV (7.2-11.7) fL Neut % (Auto) (50.0-75.0) % Lymph % (Auto) (20.0-40.0) % [place] % (Auto) (0.0-10.0) % Eos % (Auto) (0.0-4.0) % Baso % (Auto) (0.0-2.0) % Neut # (Auto) (1.8-7.0) K/uL Lymph # (Auto) (1.0-4.3) K/uL [place] # (Auto) (0.0-0.8) K/uL Eos # (Auto) (0.0-0.7) K/uL Baso # (Auto) (0.0-0.2) K/uL PT (9.7-12.2) SECONDS INR APTT 71 H D (21-34) SECONDS Sodium 140 (132-148) mmol/L Potassium 4.1 (3.6-5.2) mmol/L Chloride 102 (98-107) mmol/L Carbon Dioxide 28 (22-30) mmol/L Anion Gap 15 (10-20) BUN 41 H (9-20) mg/dL Creatinine 4.8 H (0.8-1.5) mg/dL Est GFR ( Amer) 15 Est GFR (Non-Af Amer) 13 POC Glucose (mg/dL) (65-110) mg/dL Random Glucose 128 H (75-110) mg/dL Hemoglobin A1c (4.2-6.5) % Calcium 9.3 (8.6-10.4) mg/dl Magnesium (1.6-2.3) mg/dL Total Creatine Kinase 8891 H (55-170) U/L CK-MB (Mass) 826 H (0.0-3.38) ng/mL Troponin I 487.0000 H* (0.00-0.120) ng/mL Triglycerides 67 (0-149) mg/dL Cholesterol 216 H (0-199) mg/dL LDL Cholesterol Direct 141 H (0-129) mg/dL HDL Cholesterol 44 (30-70) mg/dL TSH 3rd Generation 1.54 (0.46-4.68) mIU/L 01/12/18 01/12/18 01/12/18 Range/Units 06:31 06:31 02:29 WBC 10.0 (4.8-10.8) K/uL RBC 4.70 (4.40-5.90) Mil/uL Hgb 12.5 (12.0-18.0) g/dL Hct 38.4 (35.0-51.0) % MCV 81.7 (80.0-94.0) fL MCH 26.6 L (27.0-31.0) pg MCHC 32.5 L (33.0-37.0) g/dL RDW 13.4 (11.5-14.5) % Plt Count 189 (130-400) K/uL MPV 8.3 (7.2-11.7) fL Neut % (Auto) 81.9 H (50.0-75.0) % Lymph % (Auto) 10.0 L (20.0-40.0) % [place] % (Auto) 7.2 (0.0-10.0) % Eos % (Auto) 0.3 (0.0-4.0) % Baso % (Auto) 0.6 (0.0-2.0) % Neut # (Auto) 8.2 H (1.8-7.0) K/uL Lymph # (Auto) 1.0 (1.0-4.3) K/uL [place] # (Auto) 0.7 (0.0-0.8) K/uL Eos # (Auto) 0.0 (0.0-0.7) K/uL Baso # (Auto) 0.1 (0.0-0.2) K/uL PT (9.7-12.2) SECONDS INR APTT (21-34) SECONDS Sodium (132-148) mmol/L Potassium (3.6-5.2) mmol/L Chloride (98-107) mmol/L Carbon Dioxide (22-30) mmol/L Anion Gap (10-20) BUN (9-20) mg/dL Creatinine (0.8-1.5) mg/dL Est GFR ( Amer) Est GFR (Non-Af Amer) POC Glucose (mg/dL) (65-110) mg/dL Random Glucose (75-110) mg/dL Hemoglobin A1c 4.5 (4.2-6.5) % Calcium (8.6-10.4) mg/dl Magnesium 2.0 (1.6-2.3) mg/dL Total Creatine Kinase (55-170) U/L CK-MB (Mass) (0.0-3.38) ng/mL Troponin I (0.00-0.120) ng/mL Triglycerides (0-149) mg/dL Cholesterol (0-199) mg/dL LDL Cholesterol Direct (0-129) mg/dL HDL Cholesterol (30-70) mg/dL TSH 3rd Generation (0.46-4.68) mIU/L 01/12/18 01/12/18 01/11/18 Range/Units 01:19 01:19 21:17 WBC (4.8-10.8) K/uL RBC (4.40-5.90) Mil/uL Hgb (12.0-18.0) g/dL Hct (35.0-51.0) % MCV (80.0-94.0) fL MCH (27.0-31.0) pg MCHC (33.0-37.0) g/dL RDW (11.5-14.5) % Plt Count (130-400) K/uL MPV (7.2-11.7) fL Neut % (Auto) (50.0-75.0) % Lymph % (Auto) (20.0-40.0) % [place] % (Auto) (0.0-10.0) % Eos % (Auto) (0.0-4.0) % Baso % (Auto) (0.0-2.0) % Neut # (Auto) (1.8-7.0) K/uL Lymph # (Auto) (1.0-4.3) K/uL [place] # (Auto) (0.0-0.8) K/uL Eos # (Auto) (0.0-0.7) K/uL Baso # (Auto) (0.0-0.2) K/uL PT (9.7-12.2) SECONDS INR APTT 134 H* D (21-34) SECONDS Sodium (132-148) mmol/L Potassium (3.6-5.2) mmol/L Chloride (98-107) mmol/L Carbon Dioxide (22-30) mmol/L Anion Gap (10-20) BUN (9-20) mg/dL Creatinine (0.8-1.5) mg/dL Est GFR ( Amer) Est GFR (Non-Af Amer) POC Glucose (mg/dL) 115 H (65-110) mg/dL Random Glucose (75-110) mg/dL Hemoglobin A1c (4.2-6.5) % Calcium (8.6-10.4) mg/dl Magnesium (1.6-2.3) mg/dL Total Creatine Kinase 6363 H (55-170) U/L CK-MB (Mass) 714 H (0.0-3.38) ng/mL Troponin I 198.0000 H* (0.00-0.120) ng/mL Triglycerides (0-149) mg/dL Cholesterol (0-199) mg/dL LDL Cholesterol Direct (0-129) mg/dL HDL Cholesterol (30-70) mg/dL TSH 3rd Generation (0.46-4.68) mIU/L 01/11/18 Range/Units 18:22 WBC (4.8-10.8) K/uL RBC (4.40-5.90) Mil/uL Hgb (12.0-18.0) g/dL Hct (35.0-51.0) % MCV (80.0-94.0) fL MCH (27.0-31.0) pg MCHC (33.0-37.0) g/dL RDW (11.5-14.5) % Plt Count (130-400) K/uL MPV (7.2-11.7) fL Neut % (Auto) (50.0-75.0) % Lymph % (Auto) (20.0-40.0) % [place] % (Auto) (0.0-10.0) % Eos % (Auto) (0.0-4.0) % Baso % (Auto) (0.0-2.0) % Neut # (Auto) (1.8-7.0) K/uL Lymph # (Auto) (1.0-4.3) K/uL [place] # (Auto) (0.0-0.8) K/uL Eos # (Auto) (0.0-0.7) K/uL Baso # (Auto) (0.0-0.2) K/uL PT 11.8 (9.7-12.2) SECONDS INR 1.1 APTT 30 (21-34) SECONDS Sodium (132-148) mmol/L Potassium (3.6-5.2) mmol/L Chloride (98-107) mmol/L Carbon Dioxide (22-30) mmol/L Anion Gap (10-20) BUN (9-20) mg/dL Creatinine (0.8-1.5) mg/dL Est GFR ( Amer) Est GFR (Non-Af Amer) POC Glucose (mg/dL) (65-110) mg/dL Random Glucose (75-110) mg/dL Hemoglobin A1c (4.2-6.5) % Calcium (8.6-10.4) mg/dl Magnesium (1.6-2.3) mg/dL Total Creatine Kinase (55-170) U/L CK-MB (Mass) (0.0-3.38) ng/mL Troponin I (0.00-0.120) ng/mL Triglycerides (0-149) mg/dL Cholesterol (0-199) mg/dL LDL Cholesterol Direct (0-129) mg/dL HDL Cholesterol (30-70) mg/dL TSH 3rd Generation (0.46-4.68) mIU/L Laboratory Results - last 24 hr 01/11/18 01/11/18 01/12/18 18:22 21:17 01:19 WBC RBC Hgb Hct MCV MCH MCHC RDW Plt Count MPV Neut % (Auto) Lymph % (Auto) [place] % (Auto) Eos % (Auto) Baso % (Auto) Neut # (Auto) Lymph # (Auto) [place] # (Auto) Eos # (Auto) Baso # (Auto) PT 11.8 INR 1.1 APTT 30 134 H* D Sodium Potassium Chloride Carbon Dioxide Anion Gap BUN Creatinine Est GFR ( Amer) Est GFR (Non-Af Amer) POC Glucose (mg/dL) 115 H Random Glucose Hemoglobin A1c Calcium Magnesium Total Creatine Kinase CK-MB (Mass) Troponin I Triglycerides Cholesterol LDL Cholesterol Direct HDL Cholesterol TSH 3rd Generation 01/12/18 01/12/18 01/12/18 01:19 02:29 06:31 WBC 10.0 RBC 4.70 Hgb 12.5 Hct 38.4 MCV 81.7 MCH 26.6 L MCHC 32.5 L RDW 13.4 Plt Count 189 MPV 8.3 Neut % (Auto) 81.9 H Lymph % (Auto) 10.0 L [place] % (Auto) 7.2 Eos % (Auto) 0.3 Baso % (Auto) 0.6 Neut # (Auto) 8.2 H Lymph # (Auto) 1.0 [place] # (Auto) 0.7 Eos # (Auto) 0.0 Baso # (Auto) 0.1 PT INR APTT Sodium Potassium Chloride Carbon Dioxide Anion Gap BUN Creatinine Est GFR ( Amer) Est GFR (Non-Af Amer) POC Glucose (mg/dL) Random Glucose Hemoglobin A1c Calcium Magnesium 2.0 Total Creatine Kinase 6363 H CK-MB (Mass) 714 H Troponin I 198.0000 H* Triglycerides Cholesterol LDL Cholesterol Direct HDL Cholesterol TSH 3rd Generation 01/12/18 01/12/18 01/12/18 06:31 06:32 06:32 WBC RBC Hgb Hct MCV MCH MCHC RDW Plt Count MPV Neut % (Auto) Lymph % (Auto) [place] % (Auto) Eos % (Auto) Baso % (Auto) Neut # (Auto) Lymph # (Auto) [place] # (Auto) Eos # (Auto) Baso # (Auto) PT INR APTT Sodium 140 Potassium 4.1 Chloride 102 Carbon Dioxide 28 Anion Gap 15 BUN 41 H Creatinine 4.8 H Est GFR ( Amer) 15 Est GFR (Non-Af Amer) 13 POC Glucose (mg/dL) Random Glucose 128 H Hemoglobin A1c 4.5 Calcium 9.3 Magnesium Total Creatine Kinase 8891 H CK-MB (Mass) 826 H Troponin I 487.0000 H* Triglycerides 67 Cholesterol 216 H LDL Cholesterol Direct 141 H HDL Cholesterol 44 TSH 3rd Generation 1.54 01/12/18 07:47 WBC RBC Hgb Hct MCV MCH MCHC RDW Plt Count MPV Neut % (Auto) Lymph % (Auto) [place] % (Auto) Eos % (Auto) Baso % (Auto) Neut # (Auto) Lymph # (Auto) [place] # (Auto) Eos # (Auto) Baso # (Auto) PT INR APTT 71 H D Sodium Potassium Chloride Carbon Dioxide Anion Gap BUN Creatinine Est GFR ( Amer) Est GFR (Non-Af Amer) POC Glucose (mg/dL) Random Glucose Hemoglobin A1c Calcium Magnesium Total Creatine Kinase CK-MB (Mass) Troponin I Triglycerides Cholesterol LDL Cholesterol Direct HDL Cholesterol TSH 3rd Generation EKG/Cardiology Studies: Cardiology / EKG Studies 01/11/18 18:00 ELECTROCARDIOGRAM DAILY Comment: Mode Of Transportation: Reason For Exam: NSTEMI 01/12/18 00:01 EKG [ELECTROCARDIOGRAM] Routine Comment: Mode Of Transportation: Reason For Exam: NSTEMI 01/12/18 04:00 EKG [ELECTROCARDIOGRAM] DAILY Comment: Mode Of Transportation: Reason For Exam: NSTEMI 01/13/18 04:00 EKG [ELECTROCARDIOGRAM] DAILY Comment: Mode Of Transportation: Reason For Exam: NSTEMI 01/14/18 04:00 EKG [ELECTROCARDIOGRAM] DAILY Comment: Mode Of Transportation: Reason For Exam: NSTEMI Critical Care Progress Note - Nutrition Nutrition: Nutrition Category Date Time Status Heart Healthy Diet [DIET] Diets 01/11/18 Dinner Active Attending/Attestation - Attestation I have personally seen and examined this patient.: Yes I have fully participated in the care of the patient.: Yes I have reviewed all pertinent clinical information: Yes Notes (Text): 01/12/18 17:36 Patient seen and examined in the intensive care unit. For cardiac cath today Continue anticoagulation Patient is off Tridil drip
[2018-01-12] MEDS ORDERED: Iodixanol 320 MG/ML 100 ML BOTTLE IV ONE (11:11)
[2018-01-12] MEDS ORDERED: Midazolam 2 MG/2 ML VIAL ONE (11:14)
--- NOTE | 2018-01-12 12:20 | CP.PCM.PN ---
Subjective - Date & Time of Evaluation Date of Evaluation: 01/12/18 Time of Evaluation: 12:09 - Subjective Subjective: After informed consent Patient underwent cardiac cath L Main: Patent LAD: Proximal 30%, distal 90%, Diags patent L Cx: Proximal 95%, OM2 long 85% RCA: Dominant and patent LV: EDP 19, EF 40% by ECHO Approximately 40cc contrast given Patient on Heparin drip and IV hydration Brilinta 180mg stat given (Switched to brilinta from plavix) Received ASA 81 and Plavix 75mg this am Transfer to [facility] for PCI Patient will return back after the procedure Under Renal watch for possible dialysis Objective - Vital Signs/Intake and Output Vital Signs (last 24 hours): Temp Pulse Resp BP Pulse Ox 97.8 F 83 15 121/82 100 01/12/18 04:00 01/12/18 07:00 01/12/18 07:00 01/12/18 07:00 01/12/18 07:00 Intake and Output: 01/12/18 01/12/18 06:59 18:59 Intake Total 273.15 230.0 Output Total 700 Balance -426.85 230.0 - Medications Medications: Current Medications Aspirin (Aspirin Chewable) 81 mg PO DAILY [facility] Last Admin: 01/12/18 10:15 Dose: 81 mg Clopidogrel Bisulfate (Plavix) 75 mg PO DAILY [facility] Last Admin: 01/12/18 10:15 Dose: 75 mg Hydralazine HCl (Apresoline) 50 mg PO BID [facility] Last Admin: 01/12/18 10:17 Dose: Not Given Heparin Sodium/Sodium Chloride (Heparin 17792 Units/250ml 1/2 Normal Saline) 25,000 units in 250 mls @ 10.124 mls/hr IV .Q24H PRN; Protocol PRN Reason: PROTOCOL Last Titration: 01/12/18 02:45 Dose: 9 units/kg/hr, 7.593 mls/hr Sodium Chloride (Sodium Chloride 0.45%) 1,000 mls @ 80 mls/hr IV .[id number] ONE Stop: 01/12/18 21:31 Last Admin: 01/12/18 10:11 Dose: 80 mls/hr Metoprolol Succinate (Toprol Xl) 25 mg PO DAILY [facility] Last Admin: 01/12/18 10:16 Dose: Not Given Pantoprazole Sodium (Protonix Inj) 40 mg IVP DAILY [facility] Last Admin: 01/12/18 10:16 Dose: 40 mg Rosuvastatin Calcium (Crestor) 40 mg PO HS [facility] - Labs Labs: 01/12/18 06:31 01/12/18 06:32 PT 11.8 SECONDS (9.7-12.2) 01/11/18 18:22 INR 1.1 01/11/18 18:22 APTT 71 SECONDS (21-34) H D 01/12/18 07:47
--- NOTE | 2018-01-12 12:57 | CP.PCM.PN ---
Subjective - Date & Time of Evaluation Date of Evaluation: 01/12/18 Time of Evaluation: 12:55 - Subjective Subjective: Attempted to see patient in [employer], however already moved to [place] for PCI. Chart reviewed. Consult to follow tomorrow am NSTEMI requiring PCI CKD 5 HTN -will likely need SERVICE WRITER ADVISOR following cath. was on iv fluids overnight -Patient will be seen tomorrow am and assessed. Objective - Vital Signs/Intake and Output Vital Signs (last 24 hours): Temp Pulse Resp BP Pulse Ox 97.8 F 83 15 121/82 100 01/12/18 04:00 01/12/18 07:00 01/12/18 07:00 01/12/18 07:00 01/12/18 07:00 Intake and Output: 01/12/18 01/12/18 06:59 18:59 Intake Total 273.15 230.0 Output Total 700 Balance -426.85 230.0 - Medications Medications: Current Medications Aspirin (Aspirin Chewable) 81 mg PO DAILY [facility] Last Admin: 01/12/18 10:15 Dose: 81 mg Clopidogrel Bisulfate (Plavix) 75 mg PO DAILY [facility] Last Admin: 01/12/18 10:15 Dose: 75 mg Heparin Sodium (Porcine) (Heparin) 5,000 units SC Q8 [facility] Hydralazine HCl (Apresoline) 50 mg PO BID [facility] Last Admin: 01/12/18 10:17 Dose: Not Given Sodium Chloride (Sodium Chloride 0.45%) 1,000 mls @ 60 mls/hr IV .[id number] ONE Stop: 01/13/18 01:41 Metoprolol Succinate (Toprol Xl) 25 mg PO DAILY [facility] Last Admin: 01/12/18 10:16 Dose: Not Given Pantoprazole Sodium (Protonix Inj) 40 mg IVP DAILY [facility] Last Admin: 01/12/18 10:16 Dose: 40 mg Rosuvastatin Calcium (Crestor) 10 mg PO HS [facility] Ticagrelor (Brilinta) 90 mg PO BID [facility] - Labs Labs: 01/12/18 06:31 01/12/18 06:32 PT 11.8 SECONDS (9.7-12.2) 01/11/18 18:22 INR 1.1 01/11/18 18:22 APTT 71 SECONDS (21-34) H D 01/12/18 07:47
--- NOTE | 2018-01-12 15:24 | CP.PCM.CON ---
History of Present Illness - History of Present Illness History of Present Illness: Nephrology Consultation Note: Assessment: critical NSTEMI, CAD s/p stent, hyperlipidemia Hypertensive Chronic Kidney Disease (I12.9) Chronic Kidney Disease (N18.5) Stage 5 with ? mg proteinuria (R80.9) likely due to HTN ? BPH Plan No acute need for renal replacement therapy at this time but will need close follow up in view of advanced CKD and contrast exposure. Hypertension control with meds as ordered. Maintain hemodynamics stable. Avoid hypotension. Patient not on ACEI/ARB due to advanced CKD Monitor Input/Output, daily weights and renal function with basic metabolic panel continue with statins can d/c bicarb drip 6-8 hrs after cardiac cath Check urine analysis, spot protein/creatinine, albumin/creatinine ratio, renal and bladder sonogram Check HIV/Hep B and Hep C serology Check for 25-OH vitamin D, iPTH, phosphorus level Dose meds/antibiotics for reduced GFR. Avoid fleets enema/magnesium based laxatives. Avoid nephrotoxins/NSAIDs/ iodinated contrast (unless needed emergently) Glycemic control Further work up/management as per primary team Thanks for allowing me to participate in care of your patient. Will follow patient with you. Please call if any Qs. had d/w team Dr Clive Reyes Office: [phone] Chief Complaint; chest pain Reason for consult: CKD 5 HPI: Pt is a 52 M with hx of Hypertension (diagnosed 2014) CKD 5 (f/up at [facility]) known for last 3-4 years presented with complaints of chest pain and SOB, found to have NSTEMI and admitted to ICU. pt s/p cardiac cath and stents placement Denies OTC/herbal meds or NSAIDs Noted recent iodinated contrast exposure. No obvious episodes of low BP. pt says BP usually high now feels better reports some symptoms of BPH as well ROS: Cardiovascular: No chest pain now Pulmonary: No shortness of breath now Gastrointestinal: denies abdominal pain No nausea. No vomiting. Genitourinary: No pain while urinating. Denies blood in urine. All other negative except as mentioned in HPI Physical Examination: seen soon after cath at [facility] General Appearance: Comfortable, in no acute respiratory distress, co-operative . Vitals reviewed and noted as below Head; Atraumatic, normocephalic ENT: no ulcers no thrush. Tongue is midline. Oropharynx: no rash or ulcers. EYES: Pupils are equal, round and reactive to light accommodation. Eye muscles a nd extraocular movement intact. Sclera is anicteric. Neck; supple no lymphadenopathy, no thyromegaly or bruit Lungs: Normal respiratory rate/effort. Breath sounds bilateral equal and clear Heart: Normal rate. s1s2 normal. No rub or gallop. Extremities: no edema. No varicose veins Neurological: Patient is alert, awake and oriented to person, place and time. No focal deficit. Strength bilateral appropriate and equal Skin: Warm and dry. Normal turgor. No rash. Palpitation: Normal elasticity for age Abdomen: Abdomen is soft. Bowel sounds +. There is no abdominal tenderness, no guarding/rigidity no organomegaly Psych: normal insight and normal affect/mood MSK: no joint tenderness or swelling. Digits and nails normal, no deformity : kidney or bladder not palpable Labs/imaging reviewed. Past medical history, past surgical history, family history, social history, allergy reviewed and noted as below Family hx: no hx of CKD. Rest non-contributory Past Patient History - Past Medical History & Family History Past Medical History?: Yes - Past Social History Smoking Status: Never Smoked Alcohol: None Drugs: Denies Home Situation {Lives}: With Family - CARDIAC Hx Hypertension: Yes - RENAL Hx Renal Failure: Yes - MUSCULOSKELETAL/RHEUMATOLOGICAL Hx Falls: No - PSYCHIATRIC Hx Substance Use: No - SURGICAL HISTORY Hx Surgeries: No - ANESTHESIA Hx Anesthesia: Yes Meds Allergies/Adverse Reactions: Allergies Allergy/AdvReac Type Severity Reaction Status Date / Time No Known Allergies Allergy Verified 01/11/18 10:46 - Medications Medications: Current Medications Aspirin (Aspirin Chewable) 81 mg PO DAILY [facility] Last Admin: 01/12/18 10:15 Dose: 81 mg Heparin Sodium (Porcine) (Heparin) 5,000 units SC Q8 [facility] Hydralazine HCl (Apresoline) 50 mg PO BID [facility] Last Admin: 01/12/18 10:17 Dose: Not Given Sodium Chloride (Sodium Chloride 0.45%) 1,000 mls @ 60 mls/hr IV .[id number] ONE Stop: 01/13/18 01:41 Metoprolol Succinate (Toprol Xl) 25 mg PO DAILY [facility] Last Admin: 01/12/18 10:16 Dose: Not Given Pantoprazole Sodium (Protonix Inj) 40 mg IVP DAILY [facility] Last Admin: 01/12/18 10:16 Dose: 40 mg Rosuvastatin Calcium (Crestor) 10 mg PO HS [facility] Ticagrelor (Brilinta) 90 mg PO BID [facility] Results - Vital Signs Recent Vital Signs: Last Vital Signs Temp 99.0 F 01/12/18 08:00 Pulse 56 L 01/12/18 10:00 Resp 12 01/12/18 10:00 BP 128/88 01/12/18 10:00 Pulse Ox 100 01/12/18 10:00 - Labs Result Diagrams: 01/12/18 06:31 01/12/18 06:32 Labs: Laboratory Results - last 24 hr 01/11/18 01/11/18 01/11/18 16:54 18:22 21:17 WBC RBC Hgb Hct MCV MCH MCHC RDW Plt Count MPV Neut % (Auto) Lymph % (Auto) [place] % (Auto) Eos % (Auto) Baso % (Auto) Neut # (Auto) Lymph # (Auto) [place] # (Auto) Eos # (Auto) Baso # (Auto) PT 11.8 INR 1.1 APTT 30 Sodium Potassium Chloride Carbon Dioxide Anion Gap BUN Creatinine Est GFR ( Amer) Est GFR (Non-Af Amer) POC Glucose (mg/dL) 115 H Random Glucose Hemoglobin A1c Calcium Magnesium Total Creatine Kinase 1040 H CK-MB (Mass) 103 H Troponin I 5.9000 H* Triglycerides Cholesterol LDL Cholesterol Direct HDL Cholesterol TSH 3rd Generation 01/12/18 01/12/18 01/12/18 01:19 01:19 02:29 WBC RBC Hgb Hct MCV MCH MCHC RDW Plt Count MPV Neut % (Auto) Lymph % (Auto) [place] % (Auto) Eos % (Auto) Baso % (Auto) Neut # (Auto) Lymph # (Auto) [place] # (Auto) Eos # (Auto) Baso # (Auto) PT INR APTT 134 H* D Sodium Potassium Chloride Carbon Dioxide Anion Gap BUN Creatinine Est GFR ( Amer) Est GFR (Non-Af Amer) POC Glucose (mg/dL) Random Glucose Hemoglobin A1c Calcium Magnesium 2.0 Total Creatine Kinase 6363 H CK-MB (Mass) 714 H Troponin I 198.0000 H* Triglycerides Cholesterol LDL Cholesterol Direct HDL Cholesterol TSH 3rd Generation 01/12/18 01/12/18 01/12/18 06:31 06:31 06:32 WBC 10.0 RBC 4.70 Hgb 12.5 Hct 38.4 MCV 81.7 MCH 26.6 L MCHC 32.5 L RDW 13.4 Plt Count 189 MPV 8.3 Neut % (Auto) 81.9 H Lymph % (Auto) 10.0 L [place] % (Auto) 7.2 Eos % (Auto) 0.3 Baso % (Auto) 0.6 Neut # (Auto) 8.2 H Lymph # (Auto) 1.0 [place] # (Auto) 0.7 Eos # (Auto) 0.0 Baso # (Auto) 0.1 PT INR APTT Sodium 140 Potassium 4.1 Chloride 102 Carbon Dioxide 28 Anion Gap 15 BUN 41 H Creatinine 4.8 H Est GFR ( Amer) 15 Est GFR (Non-Af Amer) 13 POC Glucose (mg/dL) Random Glucose 128 H Hemoglobin A1c 4.5 Calcium 9.3 Magnesium Total Creatine Kinase CK-MB (Mass) Troponin I Triglycerides 67 Cholesterol 216 H LDL Cholesterol Direct 141 H HDL Cholesterol 44 TSH 3rd Generation 1.54 01/12/18 01/12/18 06:32 07:47 WBC RBC Hgb Hct MCV MCH MCHC RDW Plt Count MPV Neut % (Auto) Lymph % (Auto) [place] % (Auto) Eos % (Auto) Baso % (Auto) Neut # (Auto) Lymph # (Auto) [place] # (Auto) Eos # (Auto) Baso # (Auto) PT INR APTT 71 H D Sodium Potassium Chloride Carbon Dioxide Anion Gap BUN Creatinine Est GFR ( Amer) Est GFR (Non-Af Amer) POC Glucose (mg/dL) Random Glucose Hemoglobin A1c Calcium Magnesium Total Creatine Kinase 8891 H CK-MB (Mass) 826 H Troponin I 487.0000 H* Triglycerides Cholesterol LDL Cholesterol Direct HDL Cholesterol TSH 3rd Generation
--- NOTE | 2018-01-12 15:31 | CARD ---
APPROVED REPORT Date of service: 01/11/2018 EKG Measurement Heart [id number] <Conclusion> Normal sinus rhythm Possible Left atrial enlargement T wave abnormality, consider lateral ischemia Abnormal ECG
--- NOTE | 2018-01-12 15:32 | CARD ---
APPROVED REPORT Date of service: 01/11/2018 EKG Measurement Heart [id number] 140P66 [id number] <Conclusion> Normal sinus rhythm Possible Left atrial enlargement Left ventricular hypertrophy Nonspecific T wave abnormality Abnormal ECG
--- NOTE | 2018-01-12 18:12 | CARD ---
APPROVED REPORT Date of service: 01/12/2018 EXAM: Two-dimensional and M-mode echocardiogram with Doppler and color Doppler. Other Information Quality : GoodRhythm : INDICATION Dizziness and Vertigo Chest Pain Non STEMI 2D DIMENSIONS IVSd1.2 (0.7-1.1cm)Aortic Root (2D)3.6 (2.0-3.7cm) LVDd5.4 (3.9-5.9cm)PWd1.5 (0.7-1.1cm) LA Imhzdm70 (18-58mL)LVDs4.6 (2.5-4.0cm) FS (%) 14.9 %LVEF (%)31.4 (>50%) LVEF (Kc's)35.13 %IVC0.00 cm M-Mode DIMENSIONS RVDd1.46 (2.1-3.2cm)Left Atrium (MM)3.81 (2.5-4.0cm) IVSd1.67 (0.7-1.1cm)Aortic Root3.60 (2.2-3.7cm) LVDd5.71 (4.0-5.6cm)Aortic Cusp Exc.1.69 (1.5-2.0cm) PWd1.55 (0.7-1.1cm)FS (%) 19 % LVDs4.62 (2.0-3.8cm)LVEF (%)39 (>50%) Mitral Valve MV E Hewnahpi45.8cm/sMV A Ikdpsixf63.3cm/sE/A ratio0.5 PUKK025.63 cm/s TDI Lateral E' Peak V3.51cm/sMedial E' Peak V4.87cm/sE/Lateral E'12.2 E/Medial E'8.8 LEFT VENTRICLE The left ventricle is normal size. There is mild to moderate concentric left ventricular hypertrophy. Left ventricle systolic function is moderately impaired. The Ejection Fraction is 35-40%. There is akinesis in the mid-inferolateral wall. The left ventricular diastolic function is normal. There is no ventricular septal defect visualized. RIGHT VENTRICLE The right ventricle is normal size. The right ventricular systolic function is normal. ATRIA The left atrium is moderately dilated. The right atrium size is normal. AORTIC VALVE The aortic valve is tri-cuspid. The aortic valve is normal in structure. No aortic regurgitation is present. There is no aortic valvular stenosis. MITRAL VALVE The mitral valve is normal in structure. There is no evidence of mitral valve prolapse. Mitral regurgitation is mild. Effective regurgitant orifice 0.1 cm TRICUSPID VALVE The tricuspid valve is normal in structure. There is trace tricuspid regurgitation. Right ventricular systolic pressure is estimated at less than 30 mmHg. There is no pulmonary hypertension. PULMONIC VALVE The pulmonary valve is normal in structure. There is trace pulmonic valvular regurgitation. GREAT VESSELS The aortic root is normal in size. The ascending aorta is normal in size. The IVC is normal in size and collapses >50% with inspiration. PERICARDIAL EFFUSION There is no pericardial effusion. <Conclusion> There is mild to moderate concentric left ventricular hypertrophy. Left ventricle systolic function is moderately impaired. The Ejection Fraction is 35-40%. There is akinesis in the mid-inferolateral wall. The left ventricular diastolic function is normal. Mitral regurgitation is mild. Effective regurgitant orifice 0.1 cm
--- NOTE | 2018-01-12 21:33 | CARDCATH ---
PROCEDURE DATE: 01/12/2018 PROCEDURES: 1. Left heart catheterization. 2. Coronary angiogram. CLINICAL INDICATIONS: 1. Chest pain. 2. Non-ST elevation myocardial infarction. 3. Coronary artery disease. 4. Hypertension. 5. Hyperlipidemia. 6. Chronic kidney disease. REFERRING PHYSICIAN: Gisele Monsalve MD PERFORMING PHYSICIAN: Zachary Umanzor MD BRIEF CLINICAL HISTORY: Keagan Benitez is a 52-year-old gentleman with history of hypertension, hyperlipidemia, chronic kidney disease, presented to [facility] yesterday with history of exertional chest pain. Upon arrival to the ER, the EKG has shown some T-wave inversions in the lateral leads. Initial troponin was 5.9. The patient was subsequently admitted to [facility] Intensive Care Unit on heparin drip, aspirin, and Plavix. This morning, the patient's troponin went up to 480. The patient was chest-pain free on heparin, nitroglycerin, aspirin, and Plavix. However, the patient's creatinine was 4.8. Since the troponins are very high, and the patient presented with non-ST elevation myocardial infarction, discussed the importance of cardiac catheterization. The patient was explained about the possible further renal injury including hemodialysis. Renal consult was placed. The patient agreed to undergo cardiac cath as the risk of not undergoing the cardiac cath is very high and the potential risk of cardiac arrest and even . The patient was brought to labor service representative. DESCRIPTION OF PROCEDURE: The patient was prepped and draped in the usual sterile fashion. Lidocaine 2% was given in the right groin for local anesthesia. Using micropuncture technique, a 6-English sheath was introduced into the right common femoral artery. A JL4 diagnostic catheter engaged into left main coronary artery. Contrast injected and left coronary angiogram was done. Then, a JR4 diagnostic catheter crossed into left ventricle across the aortic valve. LV end diastolic pressure measured. LV angiogram was not done due to severe kidney disease. The catheter was pulled back and gradient across the aortic valve was measured. Then, the same catheter engaged into right coronary artery. Contrast injected and right coronary angiogram was done. Entire procedure was done with approximately 40 to 45 mL of contrast. The patient was given IV hydration. FINDINGS: 1. Left main coronary artery is patent. 2. Proximal LAD has a 20% to 30% nonobstructive stenosis. Distal LAD has a 90% focal stenosis. Diagonal branches are patent. 3. Left circumflex has a proximal 95% thrombotic occlusion. OM2 has a long 85% to 90% stenotic lesion. 4. Right coronary artery is dominant and patent. 5. LVEDP is 19. No gradient across the aortic valve. LV ejection fraction by echo is 40%. IMPRESSION: 1. Severe two-vessel coronary artery disease. 2. Non-ST elevation myocardial infarction with a peak troponin of 480. 3. Moderately decreased left ventricular function with ejection fraction of 40%. 4. Lateral wall hypokinesis. 5. Severe kidney disease. Creatinine of 4.8. However, since the patient presented with acute coronary syndrome, since the benefit outweighs the risk, decided to send the patient to [place] for coronary intervention. The patient understand the risk of further contrast nephropathy. The patient agreed to come to [place] to undergo the procedure. The patient will be transferred to [facility] on heparin drip, IV hydration. The sheath was sutured in place. Zachary Umanzor MD
[2018-01-13 06:00] LABS: BASO % 0.2 % (0.0-2.0); EOS % 0.2 % (0.0-4.0); LYMPH # 0.8 K/uL (1.0-4.3); LYMPH % 7.2 % (20.0-40.0); MEAN CELL VOLUME 81.1 fL (80.0-94.0); MEAN CORPUSCULAR HEMOGLOBIN 26.6 pg (27.0-31.0); MEAN CORPUSCULAR HGB CONC 32.7 g/dL (33.0-37.0); MEAN PLATELET VOLUME 8.4 fL (7.2-11.7); MONO % 9.5 % (0.0-10.0); NEUT # 8.6 K/uL (1.8-7.0); NEUT % 82.9 % (50.0-75.0); PLATELET COUNT 151 K/uL (130-400); RBC 4.16 Mil/uL (4.40-5.90); RED CELL DISTRIBUTION WIDTH 12.9 % (11.5-14.5); WHITE BLOOD COUNT 10.4 K/uL (4.8-10.8)
[2018-01-13 06:46] LABS: HEPATITIS B SURFACE AG Negative (NEGATIVE)
[2018-01-13 07:12] LABS: ALT/SGPT 76 U/L (21-72); AST/SGOT 403 U/L (17-59); BLOOD UREA NITROGEN 40 mg/dL (9-20); CALCIUM 8.4 mg/dl (8.6-10.4); GFR NON-AFRICAN AMERICAN 15
[2018-01-13 09:42] LABS: LYMPHOCYTE 4 % (20-40); MONOCYTE 9 % (0-10); NEUTROPHIL 87 % (50-75); TOTAL CELLS COUNTED 100
[2018-01-13 09:43] LABS: PLATELET ESTIMATE NORMAL (NORMAL)
[2018-01-13] MEDS ORDERED: Influenza Vaccine 60 MCG/0.5 ML SYR (3 yr & up) IM ONE (10:00)
[2018-01-13 10:08] LABS: HEPATITIS B CORE AB NEGATIVE (NEGATIVE)
[2018-01-13 10:20] LABS: HEPATITIS C ANTIBODY NEGATIVE (NEGATIVE)
[2018-01-13] MEDS: Pantoprazole 40 mg EC Tab PO SCH (10:50)
[2018-01-13] MEDS: Metoprolol Succinate 25 mg XL Tab PO SCH (10:50)
--- NOTE | 2018-01-13 11:00 | CP.CCUPN ---
<Gus Arnett - Last Filed: 01/13/18 15:10> CCU Subjective - Physician Review Subjective (Free Text): 01/13/18 15:10 Patient seen and examined at bedside. No acute issues reported overnight. Denies acute complaint other than nausea this AM. S/p PCI at [facility] [place] yesterday, underwent stenting of distal LAD & LCx. Denies chest pain, shortness of breath, emesis, diaphoresis, generalized or focal weakness, pain/swelling at R wrist access site. CCU Objective - Vital Signs / Intake & Output Vital Signs (Last 4 hours): Vital Signs Temp Pulse Resp BP Pulse Ox 01/13/18 10:01 96 H 19 131/81 100 01/13/18 10:00 103 H 21 100 01/13/18 09:01 78 17 134/83 100 01/13/18 09:00 82 16 100 01/13/18 08:21 82 13 129/81 100 01/13/18 08:00 99.5 F 66 12 100 Intake and Output (Last 8hrs): Intake & Output 01/12/18 01/13/18 01/13/18 22:59 06:59 14:59 Intake Total 580.1 486.7 420 Output Total 400 350 Balance 180.1 136.7 420 Weight 82.781 kg Intake: Intake, IV Amount 280.1 486.7 180 Left Forearm 260 480 180 RAC #18 20.1 6.7 Oral 300 240 Output: Urine 400 350 Urine, Voided 400 350 Other: # Bowel Movements 0 - Physical Exam Head: Positive for: Atraumatic, Normocephalic Pupils: Negative for: Non-Reactive, Pinpoint Extroacular Muscles: Positive for: EOMI Conjunctiva: Positive for: Normal. Negative for: Injected, Icteric Mouth: Positive for: Moist Mucous Membranes, Normal Tounge, Normal Teeth Nose (External): Positive for: Atraumatic. Negative for: Abrasion, Contusion, Laceration Nose (Internal): Positive for: No Active Bleeding. Negative for: Epistaxis Neck: Positive for: Normal Range of Motion, Trachea Midline. Negative for: MIDLINE TENDERNESS, JVD Respiratory/Chest: Positive for: Clear to Auscultation, Good Air Exchange. Negative for: Respiratory Distress, Accessory Muscle Use, Wheezes, Rales, Rhonchi, Tachypneic Cardiovascular: Positive for: Regular Rate and Rhythm, Normal S1, S2, Peripheal Pulses Present (+2 radials ). Negative for: Murmurs, Tachycardic, Bradycardic Abdomen: Positive for: Normal Bowel Sounds. Negative for: Tenderness, Distention Upper Extremity: Positive for: Normal Inspection, Normal ROM, NORMAL PULSES (+2 radials), Other (wearing covering of RUE wrist access for cath). Negative for: Cyanosis, Edema, Tenderness, Swelling, Deformity Lower Extremity: Positive for: Normal Inspection, NORMAL PULSES, Normal ROM. Negative for: Edema, CALF TENDERNESS, Cyanosis, Tenderness, Swelling, Erythema, Deformity Neurological: Positive for: GCS=15, CN II-XII Intact, Speech Normal Skin: Positive for: Warm, Dry, Normal Color, Other (Intact other than at RUE wrist access site). Negative for: Rashes Psychiatric: Positive for: Alert, Oriented x 3, Normal Insight, Normal Concentration - Medications Active Medications: Active Medications Generic Name Dose Route Start Last Admin Trade Name Freq PRN Reason Stop Dose Admin Aspirin 81 mg 01/12/18 10:00 01/13/18 10:49 Aspirin Chewable PO 81 mg DAILY GERSON Administration Heparin Sodium (Porcine) 5,000 units 01/13/18 08:00 01/13/18 08:49 Heparin SC 5,000 units Q8 GERSON Administration Hydralazine HCl 50 mg 01/12/18 21:30 01/13/18 08:49 Apresoline PO 50 mg Q12H GERSON Administration Metoprolol Succinate 25 mg 01/12/18 10:00 01/13/18 10:50 Toprol Xl PO 25 mg DAILY GERSON Administration Pantoprazole Sodium 40 mg 01/13/18 10:00 01/13/18 10:50 Protonix Ec Tab PO 40 mg DAILY GERSON Administration Rosuvastatin Calcium 10 mg 01/12/18 12:07 01/12/18 21:57 Crestor PO 10 mg HS GERSON Administration Tamsulosin HCl 0.4 mg 01/13/18 10:00 01/13/18 10:50 Flomax PO 0.4 mg DAILY GERSON Administration Ticagrelor 90 mg 01/12/18 18:00 01/13/18 10:50 Brilinta PO 90 mg BID GERSON Administration - Patient Studies Lab Studies: Microbiology Studies 01/11/18 22:40 MRSA Culture (Admit) - Final Naris MRSA NOT DETECTED Lab Studies 01/13/18 01/13/18 01/13/18 Range/Units 05:52 05:52 05:52 WBC (4.8-10.8) K/uL RBC (4.40-5.90) Mil/uL Hgb (12.0-18.0) g/dL Hct (35.0-51.0) % MCV (80.0-94.0) fL MCH (27.0-31.0) pg MCHC (33.0-37.0) g/dL RDW (11.5-14.5) % Plt Count (130-400) K/uL MPV (7.2-11.7) fL Neut % (Auto) (50.0-75.0) % Lymph % (Auto) (20.0-40.0) % Beaver % (Auto) (0.0-10.0) % Eos % (Auto) (0.0-4.0) % Baso % (Auto) (0.0-2.0) % Neut # (Auto) (1.8-7.0) K/uL Lymph # (Auto) (1.0-4.3) K/uL Beaver # (Auto) (0.0-0.8) K/uL Eos # (Auto) (0.0-0.7) K/uL Baso # (Auto) (0.0-0.2) K/uL Neutrophils % (Manual) (50-75) % Lymphocytes % (Manual) (20-40) % Monocytes % (Manual) (0-10) % Platelet Estimate (NORMAL) RBC Morphology Sodium (132-148) mmol/L Potassium (3.6-5.2) mmol/L Chloride (98-107) mmol/L Carbon Dioxide (22-30) mmol/L Anion Gap (10-20) BUN (9-20) mg/dL Creatinine (0.8-1.5) mg/dL Est GFR ( Amer) Est GFR (Non-Af Amer) POC Glucose (mg/dL) (65-110) mg/dL Random Glucose (75-110) mg/dL Calcium (8.6-10.4) mg/dl Phosphorus (2.5-4.5) mg/dL Magnesium (1.6-2.3) mg/dL Total Bilirubin (0.2-1.3) mg/dL AST (17-59) U/L ALT (21-72) U/L Alkaline Phosphatase (38-126) U/L Troponin I (0.00-0.120) ng/mL Total Protein (6.3-8.3) g/dL Albumin (3.5-5.0) g/dL Globulin (2.2-3.9) gm/dL Albumin/Globulin Ratio (1.0-2.1) 25-OH Vitamin D Total (30.0-100.0) NG/ML Hep Bs Antigen (NEGATIVE) Hep Bs Antibody Positive (NEGATIVE) Hep B Core IgM Ab Negative (NEGATIVE) Hepatitis C Antibody Negative (NEGATIVE) HIV 1&2 Antibody Screen Negative (NEGATIVE) 01/13/18 01/13/18 01/13/18 Range/Units 05:52 05:52 05:52 WBC 10.4 (4.8-10.8) K/uL RBC 4.16 L (4.40-5.90) Mil/uL Hgb 11.0 L (12.0-18.0) g/dL Hct 33.7 L (35.0-51.0) % MCV 81.1 (80.0-94.0) fL MCH 26.6 L (27.0-31.0) pg MCHC 32.7 L (33.0-37.0) g/dL RDW 12.9 (11.5-14.5) % Plt Count 151 (130-400) K/uL MPV 8.4 (7.2-11.7) fL Neut % (Auto) 82.9 H (50.0-75.0) % Lymph % (Auto) 7.2 L (20.0-40.0) % Beaver % (Auto) 9.5 (0.0-10.0) % Eos % (Auto) 0.2 (0.0-4.0) % Baso % (Auto) 0.2 (0.0-2.0) % Neut # (Auto) 8.6 H (1.8-7.0) K/uL Lymph # (Auto) 0.8 L (1.0-4.3) K/uL Beaver # (Auto) 1.0 H (0.0-0.8) K/uL Eos # (Auto) 0.0 (0.0-0.7) K/uL Baso # (Auto) 0.0 (0.0-0.2) K/uL Neutrophils % (Manual) 87 H (50-75) % Lymphocytes % (Manual) 4 L (20-40) % Monocytes % (Manual) 9 (0-10) % Platelet Estimate Normal (NORMAL) RBC Morphology Normal Sodium 137 (132-148) mmol/L Potassium 3.4 L (3.6-5.2) mmol/L Chloride 102 (98-107) mmol/L Carbon Dioxide 28 (22-30) mmol/L Anion Gap 10 (10-20) BUN 40 H (9-20) mg/dL Creatinine 4.3 H (0.8-1.5) mg/dL Est GFR ( Amer) 18 Est GFR (Non-Af Amer) 15 POC Glucose (mg/dL) (65-110) mg/dL Random Glucose 112 H (75-110) mg/dL Calcium 8.4 L (8.6-10.4) mg/dl Phosphorus 3.7 (2.5-4.5) mg/dL Magnesium 1.8 (1.6-2.3) mg/dL Total Bilirubin 0.8 (0.2-1.3) mg/dL AST 403 H D (17-59) U/L ALT 76 H D (21-72) U/L Alkaline Phosphatase 65 (38-126) U/L Troponin I 184.0000 H* (0.00-0.120) ng/mL Total Protein 6.0 L (6.3-8.3) g/dL Albumin 3.0 L D (3.5-5.0) g/dL Globulin 3.0 (2.2-3.9) gm/dL Albumin/Globulin Ratio 1.0 (1.0-2.1) 25-OH Vitamin D Total 14.3 L (30.0-100.0) NG/ML Hep Bs Antigen Negative (NEGATIVE) Hep Bs Antibody (NEGATIVE) Hep B Core IgM Ab (NEGATIVE) Hepatitis C Antibody (NEGATIVE) HIV 1&2 Antibody Screen (NEGATIVE) 01/12/18 Range/Units 21:16 WBC (4.8-10.8) K/uL RBC (4.40-5.90) Mil/uL Hgb (12.0-18.0) g/dL Hct (35.0-51.0) % MCV (80.0-94.0) fL MCH (27.0-31.0) pg MCHC (33.0-37.0) g/dL RDW (11.5-14.5) % Plt Count (130-400) K/uL MPV (7.2-11.7) fL Neut % (Auto) (50.0-75.0) % Lymph % (Auto) (20.0-40.0) % Beaver % (Auto) (0.0-10.0) % Eos % (Auto) (0.0-4.0) % Baso % (Auto) (0.0-2.0) % Neut # (Auto) (1.8-7.0) K/uL Lymph # (Auto) (1.0-4.3) K/uL Beaver # (Auto) (0.0-0.8) K/uL Eos # (Auto) (0.0-0.7) K/uL Baso # (Auto) (0.0-0.2) K/uL Neutrophils % (Manual) (50-75) % Lymphocytes % (Manual) (20-40) % Monocytes % (Manual) (0-10) % Platelet Estimate (NORMAL) RBC Morphology Sodium (132-148) mmol/L Potassium (3.6-5.2) mmol/L Chloride (98-107) mmol/L Carbon Dioxide (22-30) mmol/L Anion Gap (10-20) BUN (9-20) mg/dL Creatinine (0.8-1.5) mg/dL Est GFR ( Amer) Est GFR (Non-Af Amer) POC Glucose (mg/dL) 153 H (65-110) mg/dL Random Glucose (75-110) mg/dL Calcium (8.6-10.4) mg/dl Phosphorus (2.5-4.5) mg/dL Magnesium (1.6-2.3) mg/dL Total Bilirubin (0.2-1.3) mg/dL AST (17-59) U/L ALT (21-72) U/L Alkaline Phosphatase (38-126) U/L Troponin I (0.00-0.120) ng/mL Total Protein (6.3-8.3) g/dL Albumin (3.5-5.0) g/dL Globulin (2.2-3.9) gm/dL Albumin/Globulin Ratio (1.0-2.1) 25-OH Vitamin D Total (30.0-100.0) NG/ML Hep Bs Antigen (NEGATIVE) Hep Bs Antibody (NEGATIVE) Hep B Core IgM Ab (NEGATIVE) Hepatitis C Antibody (NEGATIVE) HIV 1&2 Antibody Screen (NEGATIVE) Laboratory Results - last 24 hr 01/12/18 01/13/18 01/13/18 21:16 05:52 05:52 WBC 10.4 RBC 4.16 L Hgb 11.0 L Hct 33.7 L MCV 81.1 MCH 26.6 L MCHC 32.7 L RDW 12.9 Plt Count 151 MPV 8.4 Neut % (Auto) 82.9 H Lymph % (Auto) 7.2 L Beaver % (Auto) 9.5 Eos % (Auto) 0.2 Baso % (Auto) 0.2 Neut # (Auto) 8.6 H Lymph # (Auto) 0.8 L Beaver # (Auto) 1.0 H Eos # (Auto) 0.0 Baso # (Auto) 0.0 Neutrophils % (Manual) 87 H Lymphocytes % (Manual) 4 L Monocytes % (Manual) 9 Platelet Estimate Normal RBC Morphology Normal Sodium 137 Potassium 3.4 L Chloride 102 Carbon Dioxide 28 Anion Gap 10 BUN 40 H Creatinine 4.3 H Est GFR ( Amer) 18 Est GFR (Non-Af Amer) 15 POC Glucose (mg/dL) 153 H Random Glucose 112 H Calcium 8.4 L Phosphorus 3.7 Magnesium 1.8 Total Bilirubin 0.8 AST 403 H D ALT 76 H D Alkaline Phosphatase 65 Troponin I 184.0000 H* Total Protein 6.0 L Albumin 3.0 L D Globulin 3.0 Albumin/Globulin Ratio 1.0 25-OH Vitamin D Total Hep Bs Antigen Negative Hep Bs Antibody Hep B Core IgM Ab Hepatitis C Antibody HIV 1&2 Antibody Screen 01/13/18 01/13/18 01/13/18 05:52 05:52 05:52 WBC RBC Hgb Hct MCV MCH MCHC RDW Plt Count MPV Neut % (Auto) Lymph % (Auto) Beaver % (Auto) Eos % (Auto) Baso % (Auto) Neut # (Auto) Lymph # (Auto) Beaver # (Auto) Eos # (Auto) Baso # (Auto) Neutrophils % (Manual) Lymphocytes % (Manual) Monocytes % (Manual) Platelet Estimate RBC Morphology Sodium Potassium Chloride Carbon Dioxide Anion Gap BUN Creatinine Est GFR ( Amer) Est GFR (Non-Af Amer) POC Glucose (mg/dL) Random Glucose Calcium Phosphorus Magnesium Total Bilirubin AST ALT Alkaline Phosphatase Troponin I Total Protein Albumin Globulin Albumin/Globulin Ratio 25-OH Vitamin D Total 14.3 L Hep Bs Antigen Hep Bs Antibody Positive Hep B Core IgM Ab Negative Hepatitis C Antibody Negative HIV 1&2 Antibody Screen 01/13/18 05:52 WBC RBC Hgb Hct MCV MCH MCHC RDW Plt Count MPV Neut % (Auto) Lymph % (Auto) Beaver % (Auto) Eos % (Auto) Baso % (Auto) Neut # (Auto) Lymph # (Auto) Beaver # (Auto) Eos # (Auto) Baso # (Auto) Neutrophils % (Manual) Lymphocytes % (Manual) Monocytes % (Manual) Platelet Estimate RBC Morphology Sodium Potassium Chloride Carbon Dioxide Anion Gap BUN Creatinine Est GFR ( Amer) Est GFR (Non-Af Amer) POC Glucose (mg/dL) Random Glucose Calcium Phosphorus Magnesium Total Bilirubin AST ALT Alkaline Phosphatase Troponin I Total Protein Albumin Globulin Albumin/Globulin Ratio 25-OH Vitamin D Total Hep Bs Antigen Hep Bs Antibody Hep B Core IgM Ab Hepatitis C Antibody HIV 1&2 Antibody Screen Negative EKG/Cardiology Studies: Cardiology / EKG Studies 01/13/18 04:00 EKG [ELECTROCARDIOGRAM] DAILY Comment: Mode Of Transportation: Reason For Exam: NSTEMI 01/14/18 04:00 EKG [ELECTROCARDIOGRAM] DAILY Comment: Mode Of Transportation: Reason For Exam: NSTEMI Fingerstick Blood Sugar Results: 153 Review of Systems - Review of Systems All systems: reviewed and no additional remarkable complaints except (as per Subjective) Critical Care Progress Note - Nutrition Nutrition: Nutrition Category Date Time Status Heart Healthy Diet [DIET] Diets 01/11/18 Dinner Active Assessment/Plan - Assessment and Plan (Free Text) Assessment: This is a 52 year old male with past medical history of HTN and CKD who presented to with chest pain, and was admitted to ICU for workup and management of NSTEMI. He is s/p PCI at [facility] [place] (yesterday), with 2 stents placed. Plan: Neuro: - AAO x3 - maintain normothermia Pulm: - satting well on nasal canula at 2L, maintain SpO2>92% CV: - NSTEMI, trops still elevated but improved post-PCI, 184 this AM, trop-max 487 - Cardiology (Dr. Umanzor) following, appreciate all recs - continue ASA/Brilinta s/p 2 stent placement, will need dual antiplatelets for 1 year if NEREYDA placed - off heparin drip, off integrillin drip, off Plavix (on Brilinta instead for 2nd antiplatelet) - hydralazine 50 mg PO BID - s/p cardiac cath with PCI, found to have LAD and LCX occlusions, both stented at [facility] [place] GI: - Protonix 40 mg IVP daily - HHD Renal: - history of CKD, Cr 4.8 - Nephrology Dr. Pérez consulted. Appreciate recs; no need for HD at this time, will continue to monitor ID: - afebrile, no leukocytosis - no acute issues Heme/Onc - Hgb 11 today (was 12.5), but no signs of acute bleeding, continue to monitor - Heparin SC 5000 units q8 for DVT ppx Endo: - maintain euglycemia, goal BG 140-180 Dispo: ICU, s/p PCI with 2 stents placed, monitoring post-procedure FEN: HHD Access: Peripheral IVs Consults: Cardio, Nephro, ICU Ppx: Protonix for GI, Heparin SC for DVT Code Status: Full Patient seen, reviewed, and discussed with attending, Dr. Taiwo Barbosa <Evelio Barbosa - Last Filed: 01/13/18 18:31> CCU Objective - Vital Signs / Intake & Output Vital Signs (Last 4 hours): Vital Signs Temp 01/13/18 16:00 99.3 F Intake and Output (Last 8hrs): Intake & Output 01/13/18 01/13/18 01/13/18 06:59 14:59 22:59 Intake Total 486.7 900 Output Total 350 150 Balance 136.7 750 Weight 182 lb 8 oz Intake: Intake, IV Amount 486.7 420 Left Forearm 480 420 RAC #18 6.7 Oral 480 Output: Urine 350 150 Urine, Voided 350 150 Other: # Voids Urine, Voided 1 1 - Medications Active Medications: Active Medications Generic Name Dose Route Start Last Admin Trade Name Santosh PRN Reason Stop Dose Admin Aspirin 81 mg 01/12/18 10:00 01/13/18 10:49 Aspirin Chewable PO 81 mg DAILY GERSON Administration Heparin Sodium (Porcine) 5,000 units 01/13/18 08:00 01/13/18 14:39 Heparin SC 5,000 units Q8 GERSON Administration Hydralazine HCl 50 mg 01/12/18 21:30 01/13/18 08:49 Apresoline PO 50 mg Q12H GERSON Administration Metoprolol Succinate 25 mg 01/12/18 10:00 01/13/18 10:50 Toprol Xl PO 25 mg DAILY GERSON Administration Pantoprazole Sodium 40 mg 01/13/18 10:00 01/13/18 10:50 Protonix Ec Tab PO 40 mg DAILY GERSON Administration Rosuvastatin Calcium 10 mg 01/12/18 12:07 01/12/18 21:57 Crestor PO 10 mg HS GERSON Administration Tamsulosin HCl 0.4 mg 01/13/18 10:00 01/13/18 10:50 Flomax PO 0.4 mg DAILY GERSON Administration Ticagrelor 90 mg 01/12/18 18:00 01/13/18 17:21 Brilinta PO 90 mg BID GERSON Administration - Patient Studies Lab Studies: Microbiology Studies 01/11/18 22:40 MRSA Culture (Admit) - Final Naris MRSA NOT DETECTED Lab Studies 01/13/18 01/13/18 01/13/18 Range/Units 14:50 05:52 05:52 WBC (4.8-10.8) K/uL RBC (4.40-5.90) Mil/uL Hgb (12.0-18.0) g/dL Hct (35.0-51.0) % MCV (80.0-94.0) fL MCH (27.0-31.0) pg MCHC (33.0-37.0) g/dL RDW (11.5-14.5) % Plt Count (130-400) K/uL MPV (7.2-11.7) fL Neut % (Auto) (50.0-75.0) % Lymph % (Auto) (20.0-40.0) % Beaver % (Auto) (0.0-10.0) % Eos % (Auto) (0.0-4.0) % Baso % (Auto) (0.0-2.0) % Neut # (Auto) (1.8-7.0) K/uL Lymph # (Auto) (1.0-4.3) K/uL Beaver # (Auto) (0.0-0.8) K/uL Eos # (Auto) (0.0-0.7) K/uL Baso # (Auto) (0.0-0.2) K/uL Neutrophils % (Manual) (50-75) % Lymphocytes % (Manual) (20-40) % Monocytes % (Manual) (0-10) % Platelet Estimate (NORMAL) RBC Morphology Sodium (132-148) mmol/L Potassium (3.6-5.2) mmol/L Chloride (98-107) mmol/L Carbon Dioxide (22-30) mmol/L Anion Gap (10-20) BUN (9-20) mg/dL Creatinine (0.8-1.5) mg/dL Est GFR ( Amer) Est GFR (Non-Af Amer) POC Glucose (mg/dL) (65-110) mg/dL Random Glucose (75-110) mg/dL Calcium (8.6-10.4) mg/dl Phosphorus (2.5-4.5) mg/dL Magnesium (1.6-2.3) mg/dL Total Bilirubin (0.2-1.3) mg/dL AST (17-59) U/L ALT (21-72) U/L Alkaline Phosphatase (38-126) U/L Troponin I (0.00-0.120) ng/mL Total Protein (6.3-8.3) g/dL Albumin (3.5-5.0) g/dL Globulin (2.2-3.9) gm/dL Albumin/Globulin Ratio (1.0-2.1) 25-OH Vitamin D Total (30.0-100.0) NG/ML Urine Color Yellow (YELLOW) Urine Clarity Clear (Clear) Urine pH 7.0 (5.0-8.0) Ur Specific Bastian 1.018 (1.003-1.030) Urine Protein 2+ H (NEGATIVE) mg/dL Urine Glucose (UA) Normal (Normal) mg/dL Urine Ketones Negative (NEGATIVE) mg/dL Urine Blood 1+ H (NEGATIVE) Urine Nitrate Negative (NEGATIVE) Urine Bilirubin Negative (NEGATIVE) Urine Urobilinogen 2.0 (0.2-1.0) mg/dL Ur Leukocyte Esterase Neg (Negative) Beverly/uL Urine WBC (Auto) < 1 (0-5) /hpf Urine RBC (Auto) 2 (0-3) /hpf Hep Bs Antigen (NEGATIVE) Hep Bs Antibody Positive (NEGATIVE) Hep B Core IgM Ab (NEGATIVE) Hepatitis C Antibody (NEGATIVE) HIV 1&2 Antibody Screen Negative (NEGATIVE) 01/13/18 01/13/18 01/13/18 Range/Units 05:52 05:52 05:52 WBC (4.8-10.8) K/uL RBC (4.40-5.90) Mil/uL Hgb (12.0-18.0) g/dL Hct (35.0-51.0) % MCV (80.0-94.0) fL MCH (27.0-31.0) pg MCHC (33.0-37.0) g/dL RDW (11.5-14.5) % Plt Count (130-400) K/uL MPV (7.2-11.7) fL Neut % (Auto) (50.0-75.0) % Lymph % (Auto) (20.0-40.0) % Beaver % (Auto) (0.0-10.0) % Eos % (Auto) (0.0-4.0) % Baso % (Auto) (0.0-2.0) % Neut # (Auto) (1.8-7.0) K/uL Lymph # (Auto) (1.0-4.3) K/uL Beaver # (Auto) (0.0-0.8) K/uL Eos # (Auto) (0.0-0.7) K/uL Baso # (Auto) (0.0-0.2) K/uL Neutrophils % (Manual) (50-75) % Lymphocytes % (Manual) (20-40) % Monocytes % (Manual) (0-10) % Platelet Estimate (NORMAL) RBC Morphology Sodium 137 (132-148) mmol/L Potassium 3.4 L (3.6-5.2) mmol/L Chloride 102 (98-107) mmol/L Carbon Dioxide 28 (22-30) mmol/L Anion Gap 10 (10-20) BUN 40 H (9-20) mg/dL Creatinine 4.3 H (0.8-1.5) mg/dL Est GFR ( Amer) 18 Est GFR (Non-Af Amer) 15 POC Glucose (mg/dL) (65-110) mg/dL Random Glucose 112 H (75-110) mg/dL Calcium 8.4 L (8.6-10.4) mg/dl Phosphorus 3.7 (2.5-4.5) mg/dL Magnesium 1.8 (1.6-2.3) mg/dL Total Bilirubin 0.8 (0.2-1.3) mg/dL AST 403 H D (17-59) U/L ALT 76 H D (21-72) U/L Alkaline Phosphatase 65 (38-126) U/L Troponin I 184.0000 H* (0.00-0.120) ng/mL Total Protein 6.0 L (6.3-8.3) g/dL Albumin 3.0 L D (3.5-5.0) g/dL Globulin 3.0 (2.2-3.9) gm/dL Albumin/Globulin Ratio 1.0 (1.0-2.1) 25-OH Vitamin D Total 14.3 L (30.0-100.0) NG/ML Urine Color (YELLOW) Urine Clarity (Clear) Urine pH (5.0-8.0) Ur Specific Bastian (1.003-1.030) Urine Protein (NEGATIVE) mg/dL Urine Glucose (UA) (Normal) mg/dL Urine Ketones (NEGATIVE) mg/dL Urine Blood (NEGATIVE) Urine Nitrate (NEGATIVE) Urine Bilirubin (NEGATIVE) Urine Urobilinogen (0.2-1.0) mg/dL Ur Leukocyte Esterase (Negative) Beverly/uL Urine WBC (Auto) (0-5) /hpf Urine RBC (Auto) (0-3) /hpf Hep Bs Antigen Negative (NEGATIVE) Hep Bs Antibody (NEGATIVE) Hep B Core IgM Ab Negative (NEGATIVE) Hepatitis C Antibody Negative (NEGATIVE) HIV 1&2 Antibody Screen (NEGATIVE) 01/13/18 01/12/18 Range/Units 05:52 21:16 WBC 10.4 (4.8-10.8) K/uL RBC 4.16 L (4.40-5.90) Mil/uL Hgb 11.0 L (12.0-18.0) g/dL Hct 33.7 L (35.0-51.0) % MCV 81.1 (80.0-94.0) fL MCH 26.6 L (27.0-31.0) pg MCHC 32.7 L (33.0-37.0) g/dL RDW 12.9 (11.5-14.5) % Plt Count 151 (130-400) K/uL MPV 8.4 (7.2-11.7) fL Neut % (Auto) 82.9 H (50.0-75.0) % Lymph % (Auto) 7.2 L (20.0-40.0) % Beaver % (Auto) 9.5 (0.0-10.0) % Eos % (Auto) 0.2 (0.0-4.0) % Baso % (Auto) 0.2 (0.0-2.0) % Neut # (Auto) 8.6 H (1.8-7.0) K/uL Lymph # (Auto) 0.8 L (1.0-4.3) K/uL Beaver # (Auto) 1.0 H (0.0-0.8) K/uL Eos # (Auto) 0.0 (0.0-0.7) K/uL Baso # (Auto) 0.0 (0.0-0.2) K/uL Neutrophils % (Manual) 87 H (50-75) % Lymphocytes % (Manual) 4 L (20-40) % Monocytes % (Manual) 9 (0-10) % Platelet Estimate Normal (NORMAL) RBC Morphology Normal Sodium (132-148) mmol/L Potassium (3.6-5.2) mmol/L Chloride (98-107) mmol/L Carbon Dioxide (22-30) mmol/L Anion Gap (10-20) BUN (9-20) mg/dL Creatinine (0.8-1.5) mg/dL Est GFR ( Amer) Est GFR (Non-Af Amer) POC Glucose (mg/dL) 153 H (65-110) mg/dL Random Glucose (75-110) mg/dL Calcium (8.6-10.4) mg/dl Phosphorus (2.5-4.5) mg/dL Magnesium (1.6-2.3) mg/dL Total Bilirubin (0.2-1.3) mg/dL AST (17-59) U/L ALT (21-72) U/L Alkaline Phosphatase (38-126) U/L Troponin I (0.00-0.120) ng/mL Total Protein (6.3-8.3) g/dL Albumin (3.5-5.0) g/dL Globulin (2.2-3.9) gm/dL Albumin/Globulin Ratio (1.0-2.1) 25-OH Vitamin D Total (30.0-100.0) NG/ML Urine Color (YELLOW) Urine Clarity (Clear) Urine pH (5.0-8.0) Ur Specific Bastian (1.003-1.030) Urine Protein (NEGATIVE) mg/dL Urine Glucose (UA) (Normal) mg/dL Urine Ketones (NEGATIVE) mg/dL Urine Blood (NEGATIVE) Urine Nitrate (NEGATIVE) Urine Bilirubin (NEGATIVE) Urine Urobilinogen (0.2-1.0) mg/dL Ur Leukocyte Esterase (Negative) Beverly/uL Urine WBC (Auto) (0-5) /hpf Urine RBC (Auto) (0-3) /hpf Hep Bs Antigen (NEGATIVE) Hep Bs Antibody (NEGATIVE) Hep B Core IgM Ab (NEGATIVE) Hepatitis C Antibody (NEGATIVE) HIV 1&2 Antibody Screen (NEGATIVE) Laboratory Results - last 24 hr 01/12/18 01/13/18 01/13/18 21:16 05:52 05:52 WBC 10.4 RBC 4.16 L Hgb 11.0 L Hct 33.7 L MCV 81.1 MCH 26.6 L MCHC 32.7 L RDW 12.9 Plt Count 151 MPV 8.4 Neut % (Auto) 82.9 H Lymph % (Auto) 7.2 L Beaver % (Auto) 9.5 Eos % (Auto) 0.2 Baso % (Auto) 0.2 Neut # (Auto) 8.6 H Lymph # (Auto) 0.8 L Beaver # (Auto) 1.0 H Eos # (Auto) 0.0 Baso # (Auto) 0.0 Neutrophils % (Manual) 87 H Lymphocytes % (Manual) 4 L Monocytes % (Manual) 9 Platelet Estimate Normal RBC Morphology Normal Sodium 137 Potassium 3.4 L Chloride 102 Carbon Dioxide 28 Anion Gap 10 BUN 40 H Creatinine 4.3 H Est GFR ( Amer) 18 Est GFR (Non-Af Amer) 15 POC Glucose (mg/dL) 153 H Random Glucose 112 H Calcium 8.4 L Phosphorus 3.7 Magnesium 1.8 Total Bilirubin 0.8 AST 403 H D ALT 76 H D Alkaline Phosphatase 65 Troponin I 184.0000 H* Total Protein 6.0 L Albumin 3.0 L D Globulin 3.0 Albumin/Globulin Ratio 1.0 25-OH Vitamin D Total Urine Color Urine Clarity Urine pH Ur Specific Bastian Urine Protein Urine Glucose (UA) Urine Ketones Urine Blood Urine Nitrate Urine Bilirubin Urine Urobilinogen Ur Leukocyte Esterase Urine WBC (Auto) Urine RBC (Auto) Hep Bs Antigen Negative Hep Bs Antibody Hep B Core IgM Ab Hepatitis C Antibody HIV 1&2 Antibody Screen 01/13/18 01/13/18 01/13/18 05:52 05:52 05:52 WBC RBC Hgb Hct MCV MCH MCHC RDW Plt Count MPV Neut % (Auto) Lymph % (Auto) Beaver % (Auto) Eos % (Auto) Baso % (Auto) Neut # (Auto) Lymph # (Auto) [place] # (Auto) Eos # (Auto) Baso # (Auto) Neutrophils % (Manual) Lymphocytes % (Manual) Monocytes % (Manual) Platelet Estimate RBC Morphology Sodium Potassium Chloride Carbon Dioxide Anion Gap BUN Creatinine Est GFR ( Amer) Est GFR (Non-Af Amer) POC Glucose (mg/dL) Random Glucose Calcium Phosphorus Magnesium Total Bilirubin AST ALT Alkaline Phosphatase Troponin I Total Protein Albumin Globulin Albumin/Globulin Ratio 25-OH Vitamin D Total 14.3 L Urine Color Urine Clarity Urine pH Ur Specific Bastian Urine Protein Urine Glucose (UA) Urine Ketones Urine Blood Urine Nitrate Urine Bilirubin Urine Urobilinogen Ur Leukocyte Esterase Urine WBC (Auto) Urine RBC (Auto) Hep Bs Antigen Hep Bs Antibody Positive Hep B Core IgM Ab Negative Hepatitis C Antibody Negative HIV 1&2 Antibody Screen 01/13/18 01/13/18 05:52 14:50 WBC RBC Hgb Hct MCV MCH MCHC RDW Plt Count MPV Neut % (Auto) Lymph % (Auto) [place]aver % (Auto) Eos % (Auto) Baso % (Auto) Neut # (Auto) Lymph # (Auto) [place] # (Auto) Eos # (Auto) Baso # (Auto) Neutrophils % (Manual) Lymphocytes % (Manual) Monocytes % (Manual) Platelet Estimate RBC Morphology Sodium Potassium Chloride Carbon Dioxide Anion Gap BUN Creatinine Est GFR ( Amer) Est GFR (Non-Af Amer) POC Glucose (mg/dL) Random Glucose Calcium Phosphorus Magnesium Total Bilirubin AST ALT Alkaline Phosphatase Troponin I Total Protein Albumin Globulin Albumin/Globulin Ratio 25-OH Vitamin D Total Urine Color Yellow Urine Clarity Clear Urine pH 7.0 Ur Specific Bastian 1.018 Urine Protein 2+ H Urine Glucose (UA) Normal Urine Ketones Negative Urine Blood 1+ H Urine Nitrate Negative Urine Bilirubin Negative Urine Urobilinogen 2.0 Ur Leukocyte Esterase Neg Urine WBC (Auto) < 1 Urine RBC (Auto) 2 Hep Bs Antigen Hep Bs Antibody Hep B Core IgM Ab Hepatitis C Antibody HIV 1&2 Antibody Screen Negative EKG/Cardiology Studies: Cardiology / EKG Studies 01/13/18 04:00 EKG [ELECTROCARDIOGRAM] DAILY Comment: Mode Of Transportation: Reason For Exam: NSTEMI 01/14/18 04:00 EKG [ELECTROCARDIOGRAM] DAILY Comment: Mode Of Transportation: Reason For Exam: NSTEMI Critical Care Progress Note - Nutrition Nutrition: Nutrition Category Date Time Status Heart Healthy Diet [DIET] Diets 01/11/18 Dinner Active Assessment/Plan - Assessment and Plan (Free Text) Plan: Patient seen and examined at bedside. Patient remains hemodynaimcally stable. Above resident documents my clinical management and physical exam. - Date & Time Date: 01/13/18 Time: 18:31
[2018-01-13] MEDS ORDERED: Potassium Chloride 20 mEq/15 ml LIQ UD PO ONE (11:27)
[2018-01-13 14:56] LABS: URINE BILIRUBIN NEGATIVE (NEGATIVE); URINE BLOOD 1+ (NEGATIVE); URINE CLARITY Clear (Clear); URINE COLOR Yellow (YELLOW); URINE GLUCOSE (UA) NORMAL (Normal); URINE LEUKOCYTE ESTERASE NEG Leu/uL (Negative); URINE PROTEIN 2+ mg/dL (NEGATIVE)
--- NOTE | 2018-01-13 15:49 | CP.PCM.PN ---
Subjective - Date & Time of Evaluation Date of Evaluation: 01/13/18 Time of Evaluation: 15:48 - Subjective Subjective: Nephrology Consultation Note: Assessment: critical NSTEMI, CAD s/p stent, hyperlipidemia Hypertensive Chronic Kidney Disease (I12.9) Chronic Kidney Disease (N18.5) Stage 5 with ? mg proteinuria (R80.9) likely due to HTN ? BPH Plan No acute need for renal replacement therapy at this time cr slightly better today bp stable lytes ok monitor I&Os continue with statins off all fluids urine studies pending Physical Examination: General Appearance: Comfortable, in no acute respiratory distress, co-operative . Vitals reviewed and noted as below Head; Atraumatic, normocephalic ENT: no ulcers Oropharynx: no rash or ulcers. EYES: Eye muscles and extraocular movement intact. Sclera is anicteric. Neck; supple no lymphadenopathy, no thyromegaly or bruit Lungs: Normal respiratory rate/effort. Breath sounds bilateral equal and clear Heart: Normal rate. s1s2 normal. No rub or gallop. Extremities: no edema. No varicose veins Neurological: Patient is alert, awake and oriented to person, place and time. No focal deficit. Strength bilateral appropriate and equal Skin: Warm and dry. Normal turgor. No rash. Abdomen: Abdomen is soft. Bowel sounds +. There is no abdominal tenderness, no guarding/rigidity no organomegaly Psych: normal insight and normal affect/mood MSK: no joint tenderness or swelling Objective - Vital Signs/Intake and Output Vital Signs (last 24 hours): Temp Pulse Resp BP Pulse Ox 96.3 F L 87 16 135/77 100 01/13/18 12:00 01/13/18 12:01 01/13/18 12:01 01/13/18 12:01 01/13/18 12:01 Intake and Output: 01/13/18 01/13/18 06:59 18:59 Intake Total 1066.8 900 Output Total 750 Balance 316.8 900 - Medications Medications: Current Medications Aspirin (Aspirin Chewable) 81 mg PO DAILY [facility] Last Admin: 01/13/18 10:49 Dose: 81 mg Heparin Sodium (Porcine) (Heparin) 5,000 units SC Q8 [facility] Last Admin: 01/13/18 14:39 Dose: 5,000 units Hydralazine HCl (Apresoline) 50 mg PO Q12H [facility] Last Admin: 01/13/18 08:49 Dose: 50 mg Metoprolol Succinate (Toprol Xl) 25 mg PO DAILY [facility] Last Admin: 01/13/18 10:50 Dose: 25 mg Pantoprazole Sodium (Protonix Ec Tab) 40 mg PO DAILY [facility] Last Admin: 01/13/18 10:50 Dose: 40 mg Rosuvastatin Calcium (Crestor) 10 mg PO HS [facility] Last Admin: 01/12/18 21:57 Dose: 10 mg Tamsulosin HCl (Flomax) 0.4 mg PO DAILY [facility] Last Admin: 01/13/18 10:50 Dose: 0.4 mg Ticagrelor (Brilinta) 90 mg PO BID [facility] Last Admin: 01/13/18 10:50 Dose: 90 mg - Labs Labs: 01/13/18 05:52 01/13/18 05:52 PT 11.8 SECONDS (9.7-12.2) 01/11/18 18:22 INR 1.1 01/11/18 18:22 APTT 71 SECONDS (21-34) H D 01/12/18 07:47
--- NOTE | 2018-01-13 17:01 | CARD ---
APPROVED REPORT Date of service: 01/12/2018 EKG Measurement Heart [id number] <Conclusion> Normal sinus rhythm T wave abnormality, consider lateral ischemia Abnormal ECG
--- NOTE | 2018-01-13 17:01 | CARD ---
APPROVED REPORT Date of service: 01/12/2018 EKG Measurement Heart [id number] <Conclusion> Sinus bradycardia T wave abnormality, consider lateral ischemia Abnormal ECG
--- NOTE | 2018-01-14 01:27 | CP.PCM.PN ---
Subjective - Date & Time of Evaluation Date of Evaluation: 01/13/18 Time of Evaluation: 11:40 - Subjective Subjective: Covering for Dr Umanzor no chest pain today trops +++ needs cath Objective - Vital Signs/Intake and Output Vital Signs (last 24 hours): Temp Pulse Resp BP Pulse Ox 98.7 F 91 H 21 132/87 100 01/14/18 00:00 01/14/18 00:00 01/14/18 00:00 01/14/18 00:00 01/14/18 00:00 Intake and Output: 01/13/18 01/14/18 18:59 06:59 Intake Total 900 740 Output Total 150 350 Balance 750 390 - Medications Medications: Current Medications Aspirin (Aspirin Chewable) 81 mg PO DAILY [facility] Last Admin: 01/13/18 10:49 Dose: 81 mg Heparin Sodium (Porcine) (Heparin) 5,000 units SC Q8 [facility] Last Admin: 01/13/18 22:01 Dose: 5,000 units Hydralazine HCl (Apresoline) 50 mg PO Q12H [facility] Last Admin: 01/13/18 22:00 Dose: 50 mg Metoprolol Succinate (Toprol Xl) 25 mg PO DAILY [facility] Last Admin: 01/13/18 10:50 Dose: 25 mg Pantoprazole Sodium (Protonix Ec Tab) 40 mg PO DAILY [facility] Last Admin: 01/13/18 10:50 Dose: 40 mg Rosuvastatin Calcium (Crestor) 10 mg PO HS [facility] Last Admin: 01/13/18 22:00 Dose: 10 mg Tamsulosin HCl (Flomax) 0.4 mg PO DAILY [facility] Last Admin: 01/13/18 10:50 Dose: 0.4 mg Ticagrelor (Brilinta) 90 mg PO BID [facility] Last Admin: 01/13/18 17:21 Dose: 90 mg - Labs Labs: 01/13/18 05:52 01/13/18 05:52 PT 11.8 SECONDS (9.7-12.2) 01/11/18 18:22 INR 1.1 01/11/18 18:22 APTT 71 SECONDS (21-34) H D 01/12/18 07:47 - Constitutional Appears: Non-toxic - Head Exam Head Exam: NORMAL INSPECTION - Eye Exam Eye Exam: Scleral icterus - ENT Exam ENT Exam: Mucous Membranes Moist - Neck Exam Neck Exam: Full ROM - Respiratory Exam Respiratory Exam: NORMAL BREATHING PATTERN - Cardiovascular Exam Cardiovascular Exam: REGULAR RHYTHM - GI/Abdominal Exam GI & Abdominal Exam: Soft. absent: Tenderness - Extremities Exam Extremities Exam: absent: Pedal Edema - Neurological Exam Neurological Exam: Alert, Oriented x3 Assessment and Plan - Assessment and Plan (Free Text) Assessment: ACS Plan: Cont meds For cardiac cath
[2018-01-14 06:34] LABS: BASO % 0.4 % (0.0-2.0); EOS % 0.2 % (0.0-4.0); LYMPH # 0.9 K/uL (1.0-4.3); LYMPH % 8.8 % (20.0-40.0); MEAN CELL VOLUME 80.4 fL (80.0-94.0); MEAN CORPUSCULAR HEMOGLOBIN 26.6 pg (27.0-31.0); MEAN CORPUSCULAR HGB CONC 33.1 g/dL (33.0-37.0); MEAN PLATELET VOLUME 8.6 fL (7.2-11.7); MONO # 1.1 K/uL (0.0-0.8); MONO % 10.3 % (0.0-10.0); NEUT # 8.2 K/uL (1.8-7.0); NEUT % 80.3 % (50.0-75.0); PLATELET COUNT 158 K/uL (130-400); RBC 4.15 Mil/uL (4.40-5.90); RED CELL DISTRIBUTION WIDTH 13.1 % (11.5-14.5); WHITE BLOOD COUNT 10.2 K/uL (4.8-10.8)
[2018-01-14 07:02] LABS: ALBUMIN 3.1 g/dL (3.5-5.0); CALCIUM 8.7 mg/dl (8.6-10.4)
[2018-01-14] MEDS: Pantoprazole 40 mg EC Tab PO SCH (09:13)
[2018-01-14] MEDS: Metoprolol Succinate 25 mg XL Tab PO SCH (09:13)
[2018-01-14 09:34] LABS: LYMPHOCYTE 8 % (20-40); MONOCYTE 10 % (0-10); NEUTROPHIL 82 % (50-75); PLATELET ESTIMATE NORMAL (NORMAL); TOTAL CELLS COUNTED 100
--- NOTE | 2018-01-14 10:22 | CP.PCM.PN ---
Subjective - Date & Time of Evaluation Date of Evaluation: 01/14/18 Time of Evaluation: 10:22 - Subjective Subjective: The patient is a 52-year-old male admitted with a history of renal insufficiency, hypertension and admitted with a non-ST elevation WI. Patient underwent angiogram, stenting, on LAD and circumflex. Postoperatively patient is currently doing well. He has no chest pain. He is ambulating. Vital signs currently stable. Click examination is unremarkable Patient is currently on medications for angina protocol. Patient is on antiplatelets, anticholesterol, antihypertensives. Clinically he is stable. Slight worsening renal failure noted, being followed up by enrollment processor. Contrast-induced acute on chronic failure cannot be ruled out. Patient will be monitored by the primary team, he can be transferred to floor Objective - Vital Signs/Intake and Output Vital Signs (last 24 hours): Temp Pulse Resp BP Pulse Ox 98.6 F 88 10 L 141/83 99 01/14/18 08:00 01/14/18 09:01 01/14/18 09:01 01/14/18 09:01 01/14/18 09:01 Intake and Output: 01/14/18 01/14/18 06:59 18:59 Intake Total 740 0 Output Total 550 350 Balance 190 -350 - Medications Medications: Current Medications Aspirin (Aspirin Chewable) 81 mg PO DAILY [facility] Last Admin: 01/14/18 09:12 Dose: 81 mg Heparin Sodium (Porcine) (Heparin) 5,000 units SC Q8 [facility] Last Admin: 01/14/18 06:00 Dose: 5,000 units Hydralazine HCl (Apresoline) 50 mg PO Q12H [facility] Last Admin: 01/14/18 09:12 Dose: 50 mg Metoprolol Succinate (Toprol Xl) 25 mg PO DAILY [facility] Last Admin: 01/14/18 09:13 Dose: 25 mg Pantoprazole Sodium (Protonix Ec Tab) 40 mg PO DAILY [facility] Last Admin: 01/14/18 09:13 Dose: 40 mg Rosuvastatin Calcium (Crestor) 10 mg PO HS [facility] Last Admin: 01/13/18 22:00 Dose: 10 mg Tamsulosin HCl (Flomax) 0.4 mg PO DAILY [facility] Last Admin: 01/14/18 09:13 Dose: 0.4 mg Ticagrelor (Brilinta) 90 mg PO BID [facility] Last Admin: 01/14/18 09:13 Dose: 90 mg - Labs Labs: 01/14/18 06:30 01/14/18 06:30 PT 11.8 SECONDS (9.7-12.2) 01/11/18 18:22 INR 1.1 01/11/18 18:22 APTT 71 SECONDS (21-34) H D 01/12/18 07:47
--- NOTE | 2018-01-14 20:45 | CP.PCM.PN ---
Subjective - Date & Time of Evaluation Date of Evaluation: 01/14/18 Time of Evaluation: 20:44 - Subjective Subjective: Nephrology Consultation Note: Assessment: NSTEMI, CAD s/p stent, hyperlipidemia Hypertensive Chronic Kidney Disease (I12.9) Chronic Kidney Disease (N18.5) Stage 5 with ? mg proteinuria (R80.9) likely due to HTN ? BPH Plan No acute need for renal replacement therapy at this time cr stable essentially bp stable lytes reviewed monitor I&Os continue with statins urine studies pending Physical Examination: General Appearance: Comfortable, in no acute respiratory distress, co-operative . Vitals reviewed and noted Head; Atraumatic, normocephalic ENT: no ulcers no rash or ulcers. EYES: Eye muscles and extraocular movement intact. Sclera is anicteric. Neck; supple no lymphadenopathy, no thyromegaly or bruit Lungs: Normal respiratory rate/effort. Breath sounds bilateral equal and clear Heart: Normal rate. s1s2 normal. No rub or gallop. Extremities: no edema. No varicose veins Neurological: Patient is alert, awake and oriented to person, place and time. No focal deficit. Strength bilateral appropriate and equal Skin: Warm and dry. Normal turgor. No rash. Abdomen: Abdomen is soft. Bowel sounds +. There is no abdominal tenderness, no guarding/rigidity no organomegaly Psych: normal insight Objective - Vital Signs/Intake and Output Vital Signs (last 24 hours): Temp Pulse Resp BP Pulse Ox 98.1 F 88 24 139/93 H 100 01/14/18 20:00 01/14/18 20:01 01/14/18 20:01 01/14/18 20:01 01/14/18 20:01 Intake and Output: 01/14/18 01/15/18 18:59 06:59 Intake Total 650 Output Total 700 Balance -50 - Medications Medications: Current Medications Aspirin (Aspirin Chewable) 81 mg PO DAILY [facility] Last Admin: 01/14/18 09:12 Dose: 81 mg Heparin Sodium (Porcine) (Heparin) 5,000 units SC Q8 [facility] Last Admin: 01/14/18 13:34 Dose: 5,000 units Hydralazine HCl (Apresoline) 50 mg PO Q12H [facility] Last Admin: 01/14/18 09:12 Dose: 50 mg Metoprolol Succinate (Toprol Xl) 25 mg PO DAILY [facility] Last Admin: 01/14/18 09:13 Dose: 25 mg Pantoprazole Sodium (Protonix Ec Tab) 40 mg PO DAILY [facility] Last Admin: 01/14/18 09:13 Dose: 40 mg Rosuvastatin Calcium (Crestor) 10 mg PO HS [facility] Last Admin: 01/13/18 22:00 Dose: 10 mg Tamsulosin HCl (Flomax) 0.4 mg PO DAILY [facility] Last Admin: 01/14/18 09:13 Dose: 0.4 mg Ticagrelor (Brilinta) 90 mg PO BID [facility] Last Admin: 01/14/18 17:29 Dose: 90 mg - Labs Labs: 01/14/18 06:30 01/14/18 06:30 PT 11.8 SECONDS (9.7-12.2) 01/11/18 18:22 INR 1.1 01/11/18 18:22 APTT 71 SECONDS (21-34) H D 01/12/18 07:47
--- NOTE | 2018-01-14 23:37 | CP.PCM.PN ---
Subjective - Date & Time of Evaluation Date of Evaluation: 01/14/18 Time of Evaluation: 10:00 - Subjective Subjective: no chest pain s/p multiple stent x 2(LAD + Cx) bun 38 creat 4.8 GFR 15 Objective - Vital Signs/Intake and Output Vital Signs (last 24 hours): Temp Pulse Resp BP Pulse Ox 98.1 F 88 24 139/93 H 100 01/14/18 20:00 01/14/18 20:01 01/14/18 20:01 01/14/18 20:01 01/14/18 20:01 Intake and Output: 01/14/18 01/15/18 18:59 06:59 Intake Total 650 Output Total 700 Balance -50 - Medications Medications: Current Medications Aspirin (Aspirin Chewable) 81 mg PO DAILY [facility] Last Admin: 01/14/18 09:12 Dose: 81 mg Heparin Sodium (Porcine) (Heparin) 5,000 units SC Q8 [facility] Last Admin: 01/14/18 21:14 Dose: 5,000 units Hydralazine HCl (Apresoline) 50 mg PO Q12H [facility] Last Admin: 01/14/18 21:14 Dose: 50 mg Metoprolol Succinate (Toprol Xl) 25 mg PO DAILY [facility] Last Admin: 01/14/18 09:13 Dose: 25 mg Pantoprazole Sodium (Protonix Ec Tab) 40 mg PO DAILY [facility] Last Admin: 01/14/18 09:13 Dose: 40 mg Rosuvastatin Calcium (Crestor) 10 mg PO HS [facility] Last Admin: 01/14/18 21:14 Dose: 10 mg Tamsulosin HCl (Flomax) 0.4 mg PO DAILY [facility] Last Admin: 01/14/18 09:13 Dose: 0.4 mg Ticagrelor (Brilinta) 90 mg PO BID [facility] Last Admin: 01/14/18 17:29 Dose: 90 mg - Labs Labs: 01/14/18 06:30 01/14/18 06:30 PT 11.8 SECONDS (9.7-12.2) 01/11/18 18:22 INR 1.1 01/11/18 18:22 APTT 71 SECONDS (21-34) H D 01/12/18 07:47 - Constitutional Appears: Non-toxic - Eye Exam Eye Exam: absent: Scleral icterus - ENT Exam ENT Exam: Mucous Membranes Moist - Neck Exam Neck Exam: Full ROM - Respiratory Exam Respiratory Exam: NORMAL BREATHING PATTERN - Cardiovascular Exam Cardiovascular Exam: REGULAR RHYTHM - GI/Abdominal Exam GI & Abdominal Exam: Soft - Extremities Exam Extremities Exam: Calf Tenderness. absent: Pedal Edema - Neurological Exam Neurological Exam: Alert, Oriented x3 Assessment and Plan - Assessment and Plan (Free Text) Assessment: ACS s/p multiple stent ARF(contrast nephropathy) on CRF(stage 4) T2dm HTN Plan: Cont meds renal follow up
[2018-01-15 06:13] LABS: BASO % 0.3 % (0.0-2.0); EOS # 0.1 K/uL (0.0-0.7); EOS % 0.9 % (0.0-4.0); HEMOGLOBIN 10.8 g/dL (12.0-18.0); LYMPH # 0.7 K/uL (1.0-4.3); LYMPH % 7.8 % (20.0-40.0); MEAN CELL VOLUME 81.4 fL (80.0-94.0); MEAN CORPUSCULAR HGB CONC 33.1 g/dL (33.0-37.0); MEAN PLATELET VOLUME 9.3 fL (7.2-11.7); MONO # 0.9 K/uL (0.0-0.8); MONO % 9.8 % (0.0-10.0); NEUT # 7.1 K/uL (1.8-7.0); NEUT % 81.2 % (50.0-75.0); PLATELET COUNT 153 K/uL (130-400); RBC 4.02 Mil/uL (4.40-5.90); RED CELL DISTRIBUTION WIDTH 12.8 % (11.5-14.5); WHITE BLOOD COUNT 8.8 K/uL (4.8-10.8)
[2018-01-15 06:25] LABS: ALB/GLOB RATIO 1.1 (1.0-2.1); ALBUMIN 3.2 g/dL (3.5-5.0); CALCIUM 8.7 mg/dl (8.6-10.4)
[2018-01-15 09:13] LABS: EOSINOPHIL 2 % (0-4); LYMPHOCYTE 7 % (20-40); MONOCYTE 5 % (0-10); NEUTROPHIL 86 % (50-75); PLATELET ESTIMATE NORMAL (NORMAL); TOTAL CELLS COUNTED 100
[2018-01-15 09:14] LABS: HYPOCHROMIC SLIGHT; POLYCHROMIC SLIGHT
[2018-01-15] MEDS: Pantoprazole 40 mg EC Tab PO SCH (10:25)
[2018-01-15] MEDS: Metoprolol Succinate 25 mg XL Tab PO SCH (10:25)
[2018-01-15] MEDS ORDERED: Ergocalciferol 50,000 Intl Units Cap PO SCH (11:15)
--- NOTE | 2018-01-15 12:08 | CP.PCM.PN ---
Subjective - Date & Time of Evaluation Date of Evaluation: 01/15/18 Time of Evaluation: 12:05 - Subjective Subjective: Nephrology Consultation Note: Assessment: stable NSTEMI, CAD s/p stent, hyperlipidemia Hypertensive Chronic Kidney Disease (I12.9) Chronic Kidney Disease (N18.4) Stage 4 with ? mg proteinuria (R80.9) likely due to HTN ? BPH acute systolic CHF Vit D def and anemia Plan No acute need for renal replacement therapy at this time. pt was educated about HD/PD/transplant options (LRT/DDRT) Hypertension control with meds as ordered. Maintain hemodynamics stable. Avoid hypotension. Patient not on ACEI/ARB due to advanced CKD Monitor Input/Output, daily weights and renal function with basic metabolic [place] continue with statins started weekly Vit D, Iron and MVI supplements avoid phlebotomy and IV line in non-dominant arm and save veins for future AV access Check urine analysis, spot protein/creatinine, albumin/creatinine ratio, renal and bladder sonogram Dose meds/antibiotics for reduced GFR. Avoid fleets enema/magnesium based laxatives. Avoid nephrotoxins/NSAIDs/ iodinated contrast (unless needed emergently) Glycemic control Further work up/management as per primary team pt stable for d/c from renal perspective when planned with 1 week outpt renal follow up Thanks for allowing me to participate in care of your patient. Will follow patient with you. Please call if any Qs. had d/w team Dr Clive Reyes Office: [phone] Chief Complaint; chest pain Reason for consult: CKD 4 HPI: Pt is a 52 M with hx of Hypertension (diagnosed 2014) CKD 4/5 (f/up at [facility]) known for last 3-4 years presented with complaints of chest pain and SOB, found to have NSTEMI and admitted to ICU. pt s/p cardiac cath and stents placement Denies OTC/herbal meds or NSAIDs Noted recent iodinated contrast exposure. No obvious episodes of low BP. pt says BP usually high now feels better reports some symptoms of BPH as well ROS: Cardiovascular: No chest pain now Pulmonary: No shortness of breath now Gastrointestinal: denies abdominal pain No nausea. No vomiting. Genitourinary: No pain while urinating. Denies blood in urine. All other negative except as mentioned in HPI Physical Examination: General Appearance: Comfortable, in no acute respiratory distress, co-operative . Vitals reviewed and noted as below Head; Atraumatic, normocephalic ENT: no ulcers no thrush. Tongue is midline. Oropharynx: no rash or ulcers. EYES: Pupils are equal, round and reactive to light accommodation. Eye muscles and extraocular movement intact. Sclera is anicteric. Neck; supple no lymphadenopathy, no thyromegaly or bruit Lungs: Normal respiratory rate/effort. Breath sounds bilateral equal and clear Heart: Normal rate. s1s2 normal. No rub or gallop. Extremities: no edema. No varicose veins Neurological: Patient is alert, awake and oriented to person, place and time. No focal deficit. Strength bilateral appropriate and equal Skin: Warm and dry. Normal turgor. No rash. Palpitation: Normal elasticity for age Abdomen: Abdomen is soft. Bowel sounds +. There is no abdominal tenderness, no guarding/rigidity no organomegaly Psych: normal insight and normal affect/mood MSK: no joint tenderness or swelling. Digits and nails normal, no deformity : kidney or bladder not palpable Labs/imaging reviewed. Past medical history, past surgical history, family history, social history, allergy reviewed and noted as below Family hx: no hx of CKD. Rest non-contributory Objective - Vital Signs/Intake and Output Vital Signs (last 24 hours): Temp Pulse Resp BP Pulse Ox 97.4 F L 92 H 18 133/89 100 01/15/18 08:00 01/15/18 10:00 01/15/18 08:00 01/15/18 08:00 01/15/18 08:00 Intake and Output: 01/15/18 01/15/18 06:59 18:59 Output Total 750 Balance -750 - Medications Medications: Current Medications Aspirin (Aspirin Chewable) 81 mg PO DAILY [facility] Last Admin: 01/15/18 10:25 Dose: 81 mg Ergocalciferol (Drisdol 50,000 Intl Units Cap) 1 cap PO Q7D [facility] Ferrous Gluconate (Fergon) 324 mg PO TID [facility] Heparin Sodium (Porcine) (Heparin) 5,000 units SC Q8 [facility] Last Admin: 01/15/18 06:02 Dose: 5,000 units Hydralazine HCl (Apresoline) 50 mg PO Q12H [facility] Last Admin: 01/15/18 10:25 Dose: 50 mg Metoprolol Succinate (Toprol Xl) 25 mg PO DAILY [facility] Last Admin: 01/15/18 10:25 Dose: 25 mg Pantoprazole Sodium (Protonix Ec Tab) 40 mg PO DAILY [facility] Last Admin: 01/15/18 10:25 Dose: 40 mg Rosuvastatin Calcium (Crestor) 10 mg PO HS [facility] Last Admin: 01/14/18 21:14 Dose: 10 mg Tamsulosin HCl (Flomax) 0.4 mg PO DAILY [facility] Last Admin: 01/15/18 10:25 Dose: 0.4 mg Ticagrelor (Brilinta) 90 mg PO BID [facility] Last Admin: 01/15/18 10:25 Dose: 90 mg Vitamin B Complex/Vit C/Folic Acid (Nephro-Dina) 1 tab PO 0800 [facility] - Labs Labs: 01/15/18 06:02 01/15/18 06:02 PT 11.8 SECONDS (9.7-12.2) 01/11/18 18:22 INR 1.1 01/11/18 18:22 APTT 71 SECONDS (21-34) H D 01/12/18 07:47
--- NOTE | 2018-01-15 13:08 | US ---
Date of service: 01/13/2018 PROCEDURE: Ultrasound of the kidneys/urinary bladder HISTORY: CKD eval COMPARISON: None available. TECHNIQUE: Sonogram of the kidneys and urinary bladder. FINDINGS: RIGHT KIDNEY: Measures: 8.7 x 4.4 x 4.3 cm. Echogenic renal parenchyma. No obstructing calculus or hydronephrosis. Mild perinephric fluid. LEFT KIDNEY: Measures: 9.4 x 4.8 x 4.7 cm. Echogenic renal parenchyma. No obstructing calculus or hydronephrosis. OTHER FINDINGS: Prevoid urinary bladder measures 9.3 x 7.0 x 7.8 cm, calculated volume 262.9 mL. Postvoid urinary bladder measures 4.9 x 2.6 x 3.3 cm, calculated volume 21.6 mL. Urinary bladder wall thickening, measuring approximately 7 mm. Bilateral ureteral jets are not identified. The prostate gland measures approximately 5.1 x 5.4 x 5.3 cm. 1.1 cm probable prostate cyst. IMPRESSION: Echogenic renal parenchyma bilaterally may be seen in setting of medical renal disease. Mild right-sided perinephric fluid. Prevoid urinary bladder volume 262.9 mL. Postvoid urinary bladder volume 21.6 mL. Enlarged prostate gland. Recommend correlation with PSA. 1.1 cm probable prostate cyst. Bladder wall thickening. Recommend correlation with urinalysis. Ureteral jets are not identified.
--- NOTE | 2018-01-15 21:41 | CARD ---
APPROVED REPORT Date of service: 01/13/2018 EKG Measurement Heart [id number] ID [id number] <Conclusion> Normal sinus rhythm Nonspecific T wave abnormality Abnormal ECG
--- NOTE | 2018-01-15 22:53 | CARD ---
APPROVED REPORT Date of service: 01/14/2018 EKG Measurement Heart [id number] ID [id number] <Conclusion> Normal sinus rhythm ST & T wave abnormality, consider inferior ischemia Abnormal ECG
--- NOTE | 2018-01-16 07:40 | PN ---
DATE: 01/15/2018 SUBJECTIVE: Continue supportive care. No new change. per ICU. Ishmael Kidd MD
[2018-01-16] MEDS ORDERED: Multivitamin Vitamin B Complex (Nephro-Vite) Tab PO SCH (08:00)
[2018-01-16] MEDS: Metoprolol Succinate 25 mg XL Tab PO SCH (09:36)
[2018-01-16] MEDS: Pantoprazole 40 mg EC Tab PO SCH (09:36)
--- NOTE | 2018-01-16 11:32 | CP.PCM.PN ---
Subjective - Date & Time of Evaluation Date of Evaluation: 01/16/18 Time of Evaluation: 11:31 - Subjective Subjective: Nephrology Consultation Note: Assessment: stable NSTEMI, CAD s/p stent, hyperlipidemia Hypertensive Chronic Kidney Disease (I12.9) Chronic Kidney Disease (N18.4) Stage 4 with ? mg proteinuria (R80.9) likely due to HTN BPH acute systolic CHF Vit D def and anemia Plan No acute need for renal replacement therapy at this time. pt was educated about HD/PD/transplant options (LRT/DDRT) Hypertension control with meds as ordered. Maintain hemodynamics stable. Avoid hypotension. Patient not on ACEI/ARB due to advanced CKD Monitor Input/Output, daily weights and renal function with basic metabolic panel continue with statins started weekly Vit D, Iron and MVI supplements avoid phlebotomy and IV line in non-dominant arm and save veins for future AV access pt was advised to f/up with a urologist Check urine analysis, spot protein/creatinine, albumin/creatinine ratio, renal and bladder sonogram Dose meds/antibiotics for reduced GFR. Avoid fleets enema/magnesium based laxatives. Avoid nephrotoxins/NSAIDs/ iodinated contrast (unless needed emergently) Glycemic control Further work up/management as per primary team pt stable for d/c from renal perspective when planned with 1 week outpt renal follow up Thanks for allowing me to participate in care of your patient. Will follow patient with you. Please call if any Qs. had d/w team Dr Clive Reyes Office: [phone] Chief Complaint; chest pain Reason for consult: CKD 4 HPI: Pt is a 52 M with hx of Hypertension (diagnosed 2014) CKD 4/5 (f/up at [facility]) known for last 3-4 years presented with complaints of chest pain and SOB, found to have NSTEMI and admitted to ICU. pt s/p cardiac cath and stents placement Denies OTC/herbal meds or NSAIDs Noted recent iodinated contrast exposure. No obvious episodes of low BP. pt says BP usually high now feels better reports some symptoms of BPH as well ROS: Cardiovascular: No chest pain now Pulmonary: No shortness of breath now Gastrointestinal: denies abdominal pain No nausea. No vomiting. Genitourinary: No pain while urinating. Denies blood in urine. All other negative except as mentioned in HPI Physical Examination: General Appearance: Comfortable, in no acute respiratory distress, co-operative . Vitals reviewed and noted as below Head; Atraumatic, normocephalic ENT: no ulcers no thrush. Tongue is midline. Oropharynx: no rash or ulcers. EYES: Pupils are equal, round and reactive to light accommodation. Eye muscles and extraocular movement intact. Sclera is anicteric. Neck; supple no lymphadenopathy, no thyromegaly or bruit Lungs: Normal respiratory rate/effort. Breath sounds bilateral equal and clear Heart: Normal rate. s1s2 normal. No rub or gallop. Extremities: no edema. No varicose veins Neurological: Patient is alert, awake and oriented to person, place and time. No focal deficit. Strength bilateral appropriate and equal Skin: Warm and dry. Normal turgor. No rash. Palpitation: Normal elasticity for age Abdomen: Abdomen is soft. Bowel sounds +. There is no abdominal tenderness, no guarding/rigidity no organomegaly Psych: normal insight and normal affect/mood MSK: no joint tenderness or swelling. Digits and nails normal, no deformity : kidney or bladder not palpable Labs/imaging reviewed. Past medical history, past surgical history, family history, social history, allergy reviewed and noted as below Family hx: no hx of CKD. Rest non-contributory Objective - Vital Signs/Intake and Output Vital Signs (last 24 hours): Temp Pulse Resp BP Pulse Ox 98.3 F 94 H 14 130/91 H 99 01/16/18 08:00 01/16/18 10:00 01/16/18 08:00 01/16/18 08:00 01/16/18 08:00 Intake and Output: 01/16/18 01/16/18 06:59 18:59 Intake Total 200 250 Output Total 700 400 Balance -500 -150 - Medications Medications: Current Medications Aspirin (Aspirin Chewable) 81 mg PO DAILY [facility] Last Admin: 01/16/18 09:36 Dose: 81 mg Ergocalciferol (Drisdol 50,000 Intl Units Cap) 1 cap PO Q7D [facility] Last Admin: 01/15/18 12:23 Dose: 1 cap Ferrous Gluconate (Fergon) 324 mg PO TID [facility] Last Admin: 01/16/18 09:36 Dose: 324 mg Hydralazine HCl (Apresoline) 50 mg PO Q12H [facility] Last Admin: 01/16/18 09:36 Dose: 50 mg Metoprolol Succinate (Toprol Xl) 25 mg PO DAILY [facility] Last Admin: 01/16/18 09:36 Dose: 25 mg Pantoprazole Sodium (Protonix Ec Tab) 40 mg PO DAILY [facility] Last Admin: 01/16/18 09:36 Dose: 40 mg Rosuvastatin Calcium (Crestor) 10 mg PO HS [facility] Last Admin: 01/15/18 21:24 Dose: 10 mg Tamsulosin HCl (Flomax) 0.4 mg PO DAILY [facility] Last Admin: 01/16/18 09:36 Dose: 0.4 mg Ticagrelor (Brilinta) 90 mg PO BID [facility] Last Admin: 01/16/18 09:36 Dose: 90 mg Vitamin B Complex/Vit C/Folic Acid (Nephro-Dina) 1 tab PO 0800 [facility] Last Admin: 01/16/18 08:48 Dose: 1 tab - Labs Labs: 01/15/18 06:02 01/15/18 06:02 PT 11.8 SECONDS (9.7-12.2) 01/11/18 18:22 INR 1.1 01/11/18 18:22 APTT 71 SECONDS (21-34) H D 01/12/18 07:47
[2018-01-16] MEDS ORDERED: Pneumococcal 23-Valent Vaccine IM ONE (11:36)
--- NOTE | 2018-01-16 12:09 | CP.PCM.PN ---
Subjective - Date & Time of Evaluation Date of Evaluation: 01/16/18 Time of Evaluation: 11:25 Objective - Vital Signs/Intake and Output Vital Signs (last 24 hours): Temp Pulse Resp BP Pulse Ox 98.3 F 94 H 14 130/91 H 99 01/16/18 08:00 01/16/18 10:00 01/16/18 08:00 01/16/18 08:00 01/16/18 08:00 Intake and Output: 01/16/18 01/16/18 06:59 18:59 Intake Total 200 250 Output Total 700 400 Balance -500 -150 - Medications Medications: Current Medications Aspirin (Aspirin Chewable) 81 mg PO DAILY [facility] Last Admin: 01/16/18 09:36 Dose: 81 mg Ergocalciferol (Drisdol 50,000 Intl Units Cap) 1 cap PO Q7D [facility] Last Admin: 01/15/18 12:23 Dose: 1 cap Ferrous Gluconate (Fergon) 324 mg PO TID [facility] Last Admin: 01/16/18 09:36 Dose: 324 mg Hydralazine HCl (Apresoline) 50 mg PO Q12H [facility] Last Admin: 01/16/18 09:36 Dose: 50 mg Metoprolol Succinate (Toprol Xl) 25 mg PO DAILY [facility] Last Admin: 01/16/18 09:36 Dose: 25 mg Pantoprazole Sodium (Protonix Ec Tab) 40 mg PO DAILY [facility] Last Admin: 01/16/18 09:36 Dose: 40 mg Rosuvastatin Calcium (Crestor) 10 mg PO HS [facility] Last Admin: 01/15/18 21:24 Dose: 10 mg Tamsulosin HCl (Flomax) 0.4 mg PO DAILY [facility] Last Admin: 01/16/18 09:36 Dose: 0.4 mg Ticagrelor (Brilinta) 90 mg PO BID [facility] Last Admin: 01/16/18 09:36 Dose: 90 mg Vitamin B Complex/Vit C/Folic Acid (Nephro-Dina) 1 tab PO 0800 [facility] Last Admin: 01/16/18 08:48 Dose: 1 tab - Labs Labs: 01/15/18 06:02 01/15/18 06:02 PT 11.8 SECONDS (9.7-12.2) 01/11/18 18:22 INR 1.1 01/11/18 18:22 APTT 71 SECONDS (21-34) H D 01/12/18 07:47
[2018-01-16 16:22] VITALS: BP 140/95; PULSE 86; RESP 18; TEMP 98.2
--- NOTE | 2018-01-17 00:59 | CP.PCM.PN ---
Subjective - Date & Time of Evaluation Date of Evaluation: 01/16/18 Time of Evaluation: 10:20 - Subjective Subjective: no chest pain s/p multiple stent x 2(LAD + Cx) bun 38 creat 4.3 GFR 15 Physical Examination - Constitutional Appears: Non-toxic - Eye Exam Eye Exam: absent: Scleral icterus - ENT Exam ENT Exam: Mucous Membranes Moist - Neck Exam Neck Exam: Full ROM - Respiratory Exam Respiratory Exam: NORMAL BREATHING PATTERN - Cardiovascular Exam Cardiovascular Exam: REGULAR RHYTHM - GI/Abdominal Exam GI & Abdominal Exam: Soft - Extremities Exam Extremities Exam: Calf Tenderness. absent: Pedal Edema - Neurological Exam Neurological Exam: Alert, Oriented x3 Assessment and Plan - Assessment and Plan (Free Text) Assessment: ACS stent CRF(stage 4) T2dm HTN Plan: Cont meds renal follow up F/U Cardio in 1-2 weeks Objective - Vital Signs/Intake and Output Vital Signs (last 24 hours): Temp Pulse Resp BP Pulse Ox 98.2 F 86 18 140/95 H 97 01/16/18 16:00 01/16/18 16:00 01/16/18 16:00 01/16/18 16:00 01/16/18 16:00 Intake and Output: 01/16/18 01/17/18 18:59 06:59 Intake Total 550 Output Total 650 Balance -100 - Labs Labs: 01/15/18 06:02 01/15/18 06:02 PT 11.8 SECONDS (9.7-12.2) 01/11/18 18:22 INR 1.1 01/11/18 18:22 APTT 71 SECONDS (21-34) H D 01/12/18 07:47
[2018-01-17 17:44] VITALS: O2SAT 96
== END 2018-01-16 18:03 | disposition home or self-care (01) | DRG 246 ==
LOC: C.ER 09:11 → C.9E 11:15 → C.5S 16:04 → C.9E 17:52 → C.9I 19:02
PROVIDERS: ADMIT Internal Medicine; ATTEND Internal Medicine
PROC: 027135Z Dilation of Coronary Artery, Two Arteries with Two Drug-eluting Intraluminal Devices, Percutaneous Approach (ICD-10-PCS; principal; 2018-01-12)
PROC: 4A023N7 Measurement of Cardiac Sampling and Pressure, Left Heart, Percutaneous Approach (ICD-10-PCS; 2018-01-12)
PROC: B211YZZ Fluoroscopy of Multiple Coronary Arteries using Other Contrast (ICD-10-PCS; 2018-01-12)
PROC: B215YZZ Fluoroscopy of Left Heart using Other Contrast (ICD-10-PCS; 2018-01-12)
DX: I21.4 Non-ST elevation (NSTEMI) myocardial infarction (principal); I50.23 Acute on chronic systolic (congestive) heart failure; I13.2 Hypertensive heart and chronic kidney disease with heart failure and with stage 5 chronic kidney disease, or end stage renal disease; I16.1 Hypertensive emergency; N18.5 Chronic kidney disease, stage 5; N17.9 Acute kidney failure, unspecified; E11.22 Type 2 diabetes mellitus with diabetic chronic kidney disease; E55.9 Vitamin D deficiency, unspecified; D64.9 Anemia, unspecified; Z95.5 Presence of coronary angioplasty implant and graft; E78.5 Hyperlipidemia, unspecified; I25.10 Atherosclerotic heart disease of native coronary artery without angina pectoris; N14.4 Toxic nephropathy, not elsewhere classified

== ENCOUNTER 2018-01-17 16:19 | Inpatient (IN) | payer BC ==
[2018-01-17 16:20] VITALS: BMI 26.6
[2018-01-17 17:01] LABS: BASO % 0.4 % (0.0-2.0); EOS # 0.1 K/uL (0.0-0.7); EOS % 1.5 % (0.0-4.0); LYMPH # 0.9 K/uL (1.0-4.3); LYMPH % 10.9 % (20.0-40.0); MEAN CELL VOLUME 81.1 fL (80.0-94.0); MEAN PLATELET VOLUME 8.7 fL (7.2-11.7); MONO # 0.7 K/uL (0.0-0.8); MONO % 7.6 % (0.0-10.0); NEUT # 6.9 K/uL (1.8-7.0); NEUT % 79.6 % (50.0-75.0); RBC 4.22 Mil/uL (4.40-5.90); RED CELL DISTRIBUTION WIDTH 12.7 % (11.5-14.5); WHITE BLOOD COUNT 8.7 K/uL (4.8-10.8)
--- NOTE | 2018-01-17 17:04 | CT ---
Date of service: 01/17/2018 PROCEDURE: CT HEAD WITHOUT CONTRAST. HISTORY: Code Stroke COMPARISON: None available. TECHNIQUE: Axial computed tomography images were obtained through the head/brain without intravenous contrast. Radiation dose: Total exam DLP = 985.83 mGy-cm. This CT exam was performed using one or more of the following dose reduction techniques: Automated exposure control, adjustment of the mA and/or kV according to patient size, and/or use of iterative reconstruction technique. FINDINGS: HEMORRHAGE: No intracranial hemorrhage. BRAIN: There is a small area of diminished density at the inferior margins of the right caudate lobe suspicious for possible subacute or even potentially chronic infarction. Correlation with MRI is advised to exclude acute subacute infarct here. A tiny lucency seen at the lateral portion of the right globus pallidus may reflect a chronic lacune or dilated perivascular space. Remaining parenchyma is unremarkable of below the tentorium including throughout the brainstem. There is no mass effect or suspicious extra-axial fluid collection identified. Note is made of calcifications at posterior sylvian fissure with parietal lobe abuts the left temporal lobe likely reflecting post inflammatory or infectious process. VENTRICLES: Unremarkable. No hydrocephalus. CALVARIUM: Unremarkable. PARANASAL SINUSES: Incidental limited bilateral ethmoid sinusitis noted. MASTOID AIR CELLS: Unremarkable as visualized. No inflammatory changes. OTHER FINDINGS: None. IMPRESSION: Questionable subacute or possible chronic infarct related to the right caudate head. No mass effect appreciated. No intracranial hemorrhage. Follow-up MRI is recommended for added characterization. Small chronic lacune or dilated perivascular space right basal ganglia laterally. Exam otherwise unremarkable. Findings discussed with Dr. Moi Carty with written down and read back verification 01/17/2018, 04:55 p.m..
[2018-01-17 17:09] LABS: INR 1.2; PROTHROMBIN TIME 12.6 SECONDS (9.7-12.2)
[2018-01-17] MEDS ORDERED: Sodium Chloride 0.9% 1,000 ML IV ONE (17:18)
--- NOTE | 2018-01-17 17:19 | C.PDOC ---
History Of Present Illness 52 y/o male presents to the ER complaining of blurry vision which began at 1 pm today. Patient states that he was trying to read something and he was experiencing "double vision." Patient reports that he was recently admitted for catheter and stent in LAD. He notes that he still has blurry vision. Denies having loss of vision, dizziness, CP, dyspnea, and extremity weakness/numbness. Of note, Code Stroke was called at 16:40. NIHSS = 0 Time Seen by Provider: 01/17/18 16:48 Chief Complaint (Nursing): Weakness/Neurological Deficit History Per: Patient History/Exam Limitations: no limitations Onset/Duration Of Symptoms: Hrs Current Symptoms Are (Timing): Still Present Severity: Moderate Past Medical History Reviewed: Historical Data, Nursing Documentation, Vital Signs Vital Signs: Last Vital Signs Temp 98 F 01/17/18 16:40 Pulse 105 H 01/17/18 16:40 Resp 18 01/17/18 16:40 BP 133/88 01/17/18 16:40 Pulse Ox 98 01/17/18 16:40 - Medical History PMH: HTN - [facility] Procedures DILATION OF 2 COR ART WITH 2 DRUG-ELUT, PERC APPROACH (01/11/18) FLUOROSCOPY OF LEFT HEART USING OTHER CONTRAST (01/11/18) FLUOROSCOPY OF MULTIPLE CORONARY ARTERIES USING OTH CONTRAST (01/11/18) MEASURE OF CARDIAC SAMPL & PRESSURE, L HEART, PERC APPROACH (01/11/18) Family History: States: No Known Family Hx - Social History Hx Alcohol Use: No Hx Substance Use: No - Immunization History Hx Tetanus Toxoid Vaccination: Yes Hx Influenza Vaccination: Yes Hx Pneumococcal Vaccination: Yes Review Of Systems Except As Marked, All Systems Reviewed And Found Negative. Constitutional: Negative for: Fever, Chills Eyes: Positive for: Vision Change Cardiovascular: Negative for: Chest Pain Respiratory: Negative for: Shortness of Breath Neurological: Negative for: Weakness, Numbness Physical Exam - Physical Exam Appears: Non-toxic, No Acute Distress Skin: Normal Color, Warm, Dry Head: Atraumatic, Normacephalic Eye(s): bilateral: Normal Inspection, PERRL, EOMI Nose: Normal Oral Mucosa: Moist Neck: Supple Chest: Symmetrical Cardiovascular: Rhythm Regular Respiratory: Normal Breath Sounds, No Rales, No Rhonchi, No Wheezing Gastrointestinal/Abdominal: Normal Exam, Soft, No Tenderness, No Guarding, No Rebound Neurological/Psych: Oriented x3, Normal Speech ED Course And Treatment - Laboratory Results Result Diagrams: 01/17/18 16:56 01/17/18 16:56 ECG: Interpreted By Me, Viewed By Me ECG Rhythm: Sinus Tachycardia Interpretation Of ECG: Sinus tachycardia with normal axises, normal intervals, and no ST/ T wave changes Rate From EC O2 Sat by Pulse Oximetry: 98 (RA) Pulse Ox Interpretation: Normal - Other Rad CXR X-Ray: Viewed By Me, Read By Radiologist Interpretation: HISTORY: Code Stroke. COMPARISON: Chest x-ray performed 01/11/18. TECHNIQUE: Chest, one view. FINDINGS: LUNGS: No focal consolida tion. Please note that chest x-ray has limited sensitivity for the detection of pulmonary masses. PLEURA: No significant pleural effusion identified. No definite pneumothorax . CARDIOVASCULAR: Cardiomegaly. Minimal atherosclerotic calcification of the aortic knob. OSSEOUS STRUCTURES: No acute osseous abnormality identified. VISUALIZED UPPER ABDOMEN: Unremarkable. OTHER FINDINGS: None. IMPRESSION: Cardiomegaly. - CT Scan/US CT-Head Other Rad Studies (CT/US): Read By Radiologist, Radiology Report Reviewed CT/US Interpretation: ADDENDUM: The physician to whom I gave preliminary verbal report of this head CT is Dr. Pal. This was incorrectly transcribed in the original Impression. [ Addendum Report Added by Zachary Terrazas MD at 01/17/2018 17:13:17 ]. Date of service: 01/17/2018. PROCEDURE: CT HEAD WITHOUT CONTRAST. HISTORY: Code Stroke. COMPARISON: None available. TECHNIQUE: Axial computed tomography images were obtained through the head/brain without intravenous contrast. Radiation dose: Total exam DLP = 985.83 mGy-cm. This CT exam was performed using one or more of the following dose reduction techniques: Automated exposure control, adjustment of the mA and/or kV according to patient size, and/or use of iterative reconstruction technique. FINDINGS: HEMORRHAGE: No intracranial hemorrhage. BRAIN: There is a small area of diminished density at the inferior margins of the right caudate lobe suspicious for possible subacute or even potentially chronic infa rction. Correlation with MRI is advised to exclude acute subacute infarct here. A tiny lucency seen at the lateral portion of the right globus pallidus may reflect a chronic lacune or dilated perivascular space. Remaining parenchyma is unremarkable of below the tentorium including throughout the brainstem. There is no mass effect or suspicious extra-axial fluid collection identified. Note is made of calcifications at posterior sylvian fissure with parietal lobe abuts the left temporal lobe likely reflecting post inflammatory or infectious process. VENTRICLES: Unremarkable. No hydrocephalus. CALVARIUM: Unremarkable. PARANASAL SINUSES: Incidental limited bilateral ethmoid sinusitis noted. MASTOID AIR CELLS: Unremarkable as visualized. No inflammatory changes. OTHER FINDINGS: None. IMPRESSION: Questionable subacute or possible chronic infarct related to the right caudate head. No mass effect appreciated. No intracranial hemorrhage. Follow-up MRI is recommended for added characterization. Small chronic lacune or dilated perivascular space right basal ganglia laterally. Exam otherwise unremarkable. Findings discussed with Dr. Moi Carty with written down and read back verification 01/17/2018, 04:55 p.m.. Medical Decision Making Medical Decision Making: Plan: --Labs --EKG --CXR --CT-Head --IV Fluids Updates: Code stroke called. Patient to CT. Spoke to radiology concerning CT findings. Patient was evaluated by , neurologist. Would like MRI and MRA, however this is unable to be done as patient recently had cardiac stent placed. Recommends repeat CT head tomorrow. Case discussed with Dr. Su, patient's PMD. Accepts admission. Informed by RN that Dr. Su cannot currently admit patients. Hospitalist paged. Patient signed out to Dr. Sarmiento at 1900 for admission to hospitalist. Disposition - Disposition Disposition: HOSPITALIZED Disposition Time: 19:00 Condition: FAIR - Clinical Impression Clinical Impression: Blurry vision, CVA (cerebral vascular accident) - Scribe Statement The provider has reviewed the documentation as recorded by the Scribe Bev Sabino Provider Attestation: All medical record entries made by the Scribe were at my direction and personally dictated by me. I have reviewed the chart and agree that the record accurately reflects my personal performance of the history, physical exam, medical decision making, and the department course for this patient. I have also personally directed, reviewed, and agree with the discharge instructions and disposition.
[2018-01-17 17:22] LABS: ALB/GLOB RATIO 1.1 (1.0-2.1); ALBUMIN 3.7 g/dL (3.5-5.0); CALCIUM 9.2 mg/dl (8.6-10.4)
--- NOTE | 2018-01-17 17:22 | RAD ---
HISTORY: Code Stroke COMPARISON: Chest x-ray performed 01/11/18 TECHNIQUE: Chest, one view. FINDINGS: LUNGS: No focal consolidation. Please note that chest x-ray has limited sensitivity for the detection of pulmonary masses. PLEURA: No significant pleural effusion identified. No definite pneumothorax . CARDIOVASCULAR: Cardiomegaly. Minimal atherosclerotic calcification of the aortic knob. OSSEOUS STRUCTURES: No acute osseous abnormality identified. VISUALIZED UPPER ABDOMEN: Unremarkable. OTHER FINDINGS: None. IMPRESSION: Cardiomegaly.
[2018-01-17 17:31] LABS: TROPONIN I 22.5 ng/mL (0.00-0.120)
--- NOTE | 2018-01-17 21:42 | CP.PCM.CON ---
History of Present Illness - History of Present Illness History of Present Illness: PGY1 Neurology Consult Note for Dr. Martinez This is a 52-year-old male with PMH of PMH of HTN and CKD, NSTEMI found status- post PCI with NEREYDA placed in LAD 01/12/18, who was referred to us by Dr. Too Barbosa for CODE STROKE, which was called at 16:40PM for due to chief complaint of blurred vision. Per patient, this began earlier in the afternoon at around 1PM. The patient reports he was sitting at home and watching his favorite show ([employer]) when he began noticing that he could only see half of the screen. Patient states he adjusted his position in attempt to view the TV better however his vision did not improved, which prompted him to come to the ED for evaluation. ROS is otherwise unremarkable for vision loss, nausea, vomiting, dizziness, chest pain, dyspnea, extremity weakness and/or numbness. Review of Systems - Review of Systems All systems: reviewed and no additional remarkable complaints except Past Patient History - Past Medical History & Family History Past Medical History?: Yes - Past Social History Smoking Status: Never Smoked - CARDIAC Hx Cardiac Disorders: Yes Hx Hypertension: Yes - PULMONARY Hx Respiratory Disorders: No - NEUROLOGICAL Hx Neurological Disorder: No - HEENT Hx HEENT Problems: Yes Other/Comment: wear glasses for poor vision - RENAL Hx Chronic Kidney Disease: Yes Other/Comment: kidney problem - ENDOCRINE/METABOLIC Hx Endocrine Disorders: No - HEMATOLOGICAL/ONCOLOGICAL Hx Blood Disorders: No - INTEGUMENTARY Hx Dermatological Problems: Yes Other/Comment: left side of face w/ some blood andleft neck skin tag - MUSCULOSKELETAL/RHEUMATOLOGICAL Hx Falls: No - GASTROINTESTINAL Hx Gastrointestinal Disorders: No - GENITOURINARY/GYNECOLOGICAL Hx Genitourinary Disorders: Yes Hx Prostate Problems: Yes - PSYCHIATRIC Hx Substance Use: No - SURGICAL HISTORY Hx Surgeries: Yes Hx Coronary Stent: Yes (2 stent jan 2018) - ANESTHESIA Hx Anesthesia: Yes Hx Anesthesia Reactions: No Meds Allergies/Adverse Reactions: Allergies Allergy/AdvReac Type Severity Reaction Status Date / Time No Known Allergies Allergy Verified 01/17/18 16:27 Physical Exam - Head Exam Head Exam: ATRAUMATIC, NORMAL INSPECTION, NORMOCEPHALIC - Neurological Exam Neurological exam: Alert, CN II-XII Intact, Normal Gait, Oriented x3, Reflexes Normal - Expanded Neurological Exam Expanded Patient oriented to: person, place, time Speech: Fluid Speech Cranial nerves: EOM's Intact: Normal, Facial Palsey w/Forehead Movement: Normal, Facial Palsey w/o Forehead Movement: Normal, Facial Sensation: Normal, Gag Reflex: Normal, Nystagmus: Normal, Tongue Deviation: Normal Cerebellar Function: Finger to Nose: Normal Upper motor neuron: Yuniel Neglect: Normal, Pronator Drift: Normal, Sensory Extinction: Normal Neuro motor strength exam: Left Upper Extremity: 5, Right Upper Extremity: 5, Left Lower Extremity: 5, Right Lower Extremity: 5 - Psychiatric Exam Psychiatric exam: Normal Affect, Normal Mood Results - Vital Signs Recent Vital Signs: Last Vital Signs Temp 98.7 F 01/17/18 20:25 Pulse 93 H 01/17/18 20:25 Resp 20 01/17/18 20:25 BP 139/92 H 01/17/18 20:25 Pulse Ox 99 01/17/18 20:25 - Labs Result Diagrams: 01/17/18 16:56 01/17/18 16:56 Labs: Laboratory Results - last 24 hr 01/17/18 01/17/18 01/17/18 16:36 16:56 16:56 WBC 8.7 RBC 4.22 L Hgb 11.0 L Hct 34.2 L MCV 81.1 MCH 26.0 L MCHC 32.0 L RDW 12.7 Plt Count 244 MPV 8.7 Neut % (Auto) 79.6 H Lymph % (Auto) 10.9 L Murray % (Auto) 7.6 Eos % (Auto) 1.5 Baso % (Auto) 0.4 Neut # (Auto) 6.9 Lymph # (Auto) 0.9 L Murray # (Auto) 0.7 Eos # (Auto) 0.1 Baso # (Auto) 0.0 PT 12.6 H INR 1.2 APTT 33 Sodium Potassium Chloride Carbon Dioxide Anion Gap BUN Creatinine Est GFR ( Amer) Est GFR (Non-Af Amer) POC Glucose (mg/dL) 114 H Random Glucose Hemoglobin A1c Calcium Total Bilirubin AST ALT Alkaline Phosphatase Troponin I Total Protein Albumin Globulin Albumin/Globulin Ratio Triglycerides Cholesterol LDL Cholesterol Direct HDL Cholesterol Blood Type Antibody Screen 01/17/18 01/17/18 01/17/18 16:56 16:56 17:01 WBC RBC Hgb Hct MCV MCH MCHC RDW Plt Count MPV Neut % (Auto) Lymph % (Auto) Murray % (Auto) Eos % (Auto) Baso % (Auto) Neut # (Auto) Lymph # (Auto) Murray # (Auto) Eos # (Auto) Baso # (Auto) PT INR APTT Sodium 139 Potassium 3.5 L Chloride 102 Carbon Dioxide 25 Anion Gap 16 BUN 46 H Creatinine 5.2 H Est GFR ( Amer) 14 Est GFR (Non-Af Amer) 12 POC Glucose (mg/dL) Random Glucose 119 H Hemoglobin A1c 4.7 Calcium 9.2 Total Bilirubin 0.8 AST 47 ALT 37 Alkaline Phosphatase 68 Troponin I 22.5000 H* Total Protein 7.1 Albumin 3.7 Globulin 3.4 Albumin/Globulin Ratio 1.1 Triglycerides 107 D Cholesterol 151 LDL Cholesterol Direct 95 HDL Cholesterol 34 Blood Type B POSITIVE Antibody Screen Negative Assessment & Plan - Assessment and Plan (Free Text) Assessment: TIA * Telemetry * MRI contraindicated due to recent LAD stent placed 01/13/18 * TPA contraindicated due to patient arriving in the ED outside of the TPA window (> 3 hours) * CTA head and neck is recommended but is contraindicated due to creatinine=5.3 * Repeat non-contrast CT head * Q 4 hour neuro-checks. * Statin for goal LDL less than 70. * Permissive hypertension, do not treat blood pressure less than 220/110 (may start to normalize 48-hours after symptom onset). * NIHSS score =0 Please do not hesitate to call back with any new developments, data updates or questions. Thank you for the opportunity to participate in the care of this patient. Patient seen and case discussed with Dr. Michelle Layne PGY1
--- NOTE | 2018-01-17 22:43 | CP.PCM.HP ---
Past Patient History - Past Medical History & Family History Past Medical History?: Yes - Past Social History Smoking Status: Never Smoked - CARDIAC Hx Cardiac Disorders: Yes Hx Hypertension: Yes - PULMONARY Hx Respiratory Disorders: No - NEUROLOGICAL Hx Neurological Disorder: No - HEENT Hx HEENT Problems: Yes Other/Comment: wear glasses for poor vision - RENAL Hx Chronic Kidney Disease: Yes Other/Comment: kidney problem - ENDOCRINE/METABOLIC Hx Endocrine Disorders: No - HEMATOLOGICAL/ONCOLOGICAL Hx Blood Disorders: No - INTEGUMENTARY Hx Dermatological Problems: Yes Other/Comment: left side of face w/ some blood andleft neck skin tag - MUSCULOSKELETAL/RHEUMATOLOGICAL Hx Falls: No - GASTROINTESTINAL Hx Gastrointestinal Disorders: No - GENITOURINARY/GYNECOLOGICAL Hx Genitourinary Disorders: Yes Hx Prostate Problems: Yes - PSYCHIATRIC Hx Substance Use: No - SURGICAL HISTORY Hx Surgeries: Yes Hx Coronary Stent: Yes (2 stent jan 2018) - ANESTHESIA Hx Anesthesia: Yes Hx Anesthesia Reactions: No Meds Allergies/Adverse Reactions: Allergies Allergy/AdvReac Type Severity Reaction Status Date / Time No Known Allergies Allergy Verified 01/17/18 16:27 Physical Exam - Constitutional Appears: Well - Head Exam Head Exam: ATRAUMATIC, NORMAL INSPECTION, NORMOCEPHALIC - Eye Exam Eye Exam: EOMI, Normal appearance, PERRL Pupil Exam: NORMAL ACCOMODATION, PERRL - ENT Exam ENT Exam: Mucous Membranes Moist, Normal Exam - Neck Exam Neck exam: Positive for: Normal Inspection - Respiratory Exam Respiratory Exam: Decreased Breath Sounds - Cardiovascular Exam Cardiovascular Exam: REGULAR RHYTHM, +S1, +S2 - GI/Abdominal Exam GI & Abdominal Exam: Diminished Bowel Sounds, Soft - Rectal Exam Rectal Exam: Deferred Results - Vital Signs Recent Vital Signs: Last Vital Signs Temp 98.7 F 01/17/18 20:25 Pulse 93 H 01/17/18 20:25 Resp 20 01/17/18 20:25 BP 139/92 H 01/17/18 20:25 Pulse Ox 99 01/17/18 20:25 - Labs Result Diagrams: 01/17/18 16:56 01/17/18 16:56 Labs: Laboratory Results - last 24 hr 01/17/18 01/17/18 01/17/18 16:36 16:56 16:56 WBC 8.7 RBC 4.22 L Hgb 11.0 L Hct 34.2 L MCV 81.1 MCH 26.0 L MCHC 32.0 L RDW 12.7 Plt Count 244 MPV 8.7 Neut % (Auto) 79.6 H Lymph % (Auto) 10.9 L Bremer % (Auto) 7.6 Eos % (Auto) 1.5 Baso % (Auto) 0.4 Neut # (Auto) 6.9 Lymph # (Auto) 0.9 L Bremer # (Auto) 0.7 Eos # (Auto) 0.1 Baso # (Auto) 0.0 PT 12.6 H INR 1.2 APTT 33 Sodium Potassium Chloride Carbon Dioxide Anion Gap BUN Creatinine Est GFR ( Amer) Est GFR (Non-Af Amer) POC Glucose (mg/dL) 114 H Random Glucose Hemoglobin A1c Calcium Total Bilirubin AST ALT Alkaline Phosphatase Troponin I Total Protein Albumin Globulin Albumin/Globulin Ratio Triglycerides Cholesterol LDL Cholesterol Direct HDL Cholesterol Blood Type Antibody Screen 01/17/18 01/17/18 01/17/18 16:56 16:56 17:01 WBC RBC Hgb Hct MCV MCH MCHC RDW Plt Count MPV Neut % (Auto) Lymph % (Auto) Bremer % (Auto) Eos % (Auto) Baso % (Auto) Neut # (Auto) Lymph # (Auto) Bremer # (Auto) Eos # (Auto) Baso # (Auto) PT INR APTT Sodium 139 Potassium 3.5 L Chloride 102 Carbon Dioxide 25 Anion Gap 16 BUN 46 H Creatinine 5.2 H Est GFR ( Amer) 14 Est GFR (Non-Af Amer) 12 POC Glucose (mg/dL) Random Glucose 119 H Hemoglobin A1c 4.7 Calcium 9.2 Total Bilirubin 0.8 AST 47 ALT 37 Alkaline Phosphatase 68 Troponin I 22.5000 H* Total Protein 7.1 Albumin 3.7 Globulin 3.4 Albumin/Globulin Ratio 1.1 Triglycerides 107 D Cholesterol 151 LDL Cholesterol Direct 95 HDL Cholesterol 34 Blood Type B POSITIVE Antibody Screen Negative 01/17/18 21:13 WBC RBC Hgb Hct MCV MCH MCHC RDW Plt Count MPV Neut % (Auto) Lymph % (Auto) Bremer % (Auto) Eos % (Auto) Baso % (Auto) Neut # (Auto) Lymph # (Auto) Bremer # (Auto) Eos # (Auto) Baso # (Auto) PT INR APTT Sodium Potassium Chloride Carbon Dioxide Anion Gap BUN Creatinine Est GFR ( Amer) Est GFR (Non-Af Amer) POC Glucose (mg/dL) 149 H Random Glucose Hemoglobin A1c Calcium Total Bilirubin AST ALT Alkaline Phosphatase Troponin I Total Protein Albumin Globulin Albumin/Globulin Ratio Triglycerides Cholesterol LDL Cholesterol Direct HDL Cholesterol Blood Type Antibody Screen
[2018-01-18] MEDS: Multivitamin Vitamin B Complex (Nephro-Vite) Tab PO SCH (08:38)
[2018-01-18] MEDS: Pantoprazole 40 mg EC Tab PO SCH (10:38)
[2018-01-18] MEDS: Metoprolol Succinate 25 mg XL Tab PO SCH (10:38)
--- NOTE | 2018-01-18 13:00 | CP.PCM.CON ---
History of Present Illness - History of Present Illness History of Present Illness: Nephrology Consultation Note: Assessment: stable CVA NSTEMI, CAD s/p stent, hyperlipidemia Hypertensive Chronic Kidney Disease (I12.9) Chronic Kidney Disease (N18.5) Stage 5 with ? mg proteinuria (R80.9) likely due to HTN BPH acute systolic CHF Vit D def and anemia Plan No acute need for renal replacement therapy at this time. pt was educated about HD/PD/transplant options (LRT/DDRT). he was interested in PD Hypertension control with meds as ordered. Maintain hemodynamics stable. Avoid hypotension. Patient not on ACEI/ARB due to advanced CKD Monitor Input/Output, daily weights and renal function with basic metabolic panel continue with statins continue with weekly Vit D, Iron and MVI supplements avoid phlebotomy and IV line in non-dominant arm and save veins for future AV access pt was advised to f/up with a urologist as outpt Neuro and Cardiology following Check urine analysis, spot protein/creatinine, albumin/creatinine ratio Dose meds/antibiotics for reduced GFR. Avoid fleets enema/magnesium based laxatives. Avoid nephrotoxins/NSAIDs/ iodinated contrast (unless needed emergently) Glycemic control Further work up/management as per primary team Thanks for allowing me to participate in care of your patient. Will follow patient with you. Please call if any Qs. had d/w team Dr Clive Reyes Office: [phone] Chief Complaint; double vision Reason for consult: CKD 4 HPI: Pt is a 52 M with hx of Hypertension (diagnosed 2014) CKD 4/5 (f/up at [facility]) known for last 3-4 years recently admitted with NSTEMI s/p cardiac cath and stents placement and d/c home, came back with double vision and being managed for CVA. renal consult for CKD management. pt says vision better. no headache Denies OTC/herbal meds or NSAIDs Noted recent iodinated contrast exposure. No obvious episodes of low BP. pt says BP usually high now feels better symptoms of BPH improved with flomax ROS: Cardiovascular: No chest pain now Pulmonary: No shortness of breath now Gastrointestinal: denies abdominal pain No nausea. No vomiting. Genitourinary: No pain while urinating. Denies blood in urine. All other negative except as mentioned in HPI Physical Examination: General Appearance: Comfortable, in no acute respiratory distress, co-operative . Vitals reviewed and noted as below Head; Atraumatic, normocephalic ENT: no ulcers no thrush. Tongue is midline. Oropharynx: no rash or ulcers. EYES: Pupils are equal, round and reactive to light accommodation. Eye muscles and extraocular movement intact. Sclera is anicteric. Neck; supple no lymphadenopathy, no thyromegaly or bruit Lungs: Normal respiratory rate/effort. Breath sounds bilateral equal and clear Heart: Normal rate. s1s2 normal. No rub or gallop. Extremities: no edema. No varicose veins Neurological: Patient is alert, awake and oriented to person, place and time. No focal deficit. Strength bilateral appropriate and equal Skin: Warm and dry. Normal turgor. No rash. Palpitation: Normal elasticity for age Abdomen: Abdomen is soft. Bowel sounds +. There is no abdominal tenderness, no g uarding/rigidity no organomegaly Psych: normal insight and normal affect/mood MSK: no joint tenderness or swelling. Digits and nails normal, no deformity : kidney or bladder not palpable Labs/imaging reviewed. Past medical history, past surgical history, family history, social history, allergy reviewed and noted as below Family hx: no hx of CKD. Rest non-contributory Past Patient History - Past Medical History & Family History Past Medical History?: Yes - Past Social History Smoking Status: Never Smoked - CARDIAC Hx Cardiac Disorders: Yes Hx Hypertension: Yes - PULMONARY Hx Respiratory Disorders: No - NEUROLOGICAL Hx Neurological Disorder: No - HEENT Hx HEENT Problems: Yes Other/Comment: wear glasses for poor vision - RENAL Hx Chronic Kidney Disease: Yes Other/Comment: kidney problem - ENDOCRINE/METABOLIC Hx Endocrine Disorders: No - HEMATOLOGICAL/ONCOLOGICAL Hx Blood Disorders: No - INTEGUMENTARY Hx Dermatological Problems: Yes Other/Comment: left side of face w/ some blood andleft neck skin tag - MUSCULOSKELETAL/RHEUMATOLOGICAL Hx Falls: No - GASTROINTESTINAL Hx Gastrointestinal Disorders: No - GENITOURINARY/GYNECOLOGICAL Hx Genitourinary Disorders: Yes Hx Prostate Problems: Yes - PSYCHIATRIC Hx Substance Use: No - SURGICAL HISTORY Hx Surgeries: Yes Hx Coronary Stent: Yes (2 stent jan 2018) - ANESTHESIA Hx Anesthesia: Yes Hx Anesthesia Reactions: No Meds Allergies/Adverse Reactions: Allergies Allergy/AdvReac Type Severity Reaction Status Date / Time No Known Allergies Allergy Verified 01/17/18 16:27 - Medications Medications: Current Medications Aspirin (Aspirin Chewable) 81 mg PO DAILY [facility] Last Admin: 01/18/18 10:38 Dose: 81 mg Ergocalciferol (Drisdol 50,000 Intl Units Cap) 1 cap PO Q7D [facility] Ferrous Gluconate (Fergon) 324 mg PO TID [facility] Last Admin: 01/18/18 10:39 Dose: 324 mg Heparin Sodium (Porcine) (Heparin) 5,000 units SC Q8 [facility] Last Admin: 01/18/18 06:09 Dose: 5,000 units Hydralazine HCl (Apresoline) 50 mg PO Q12H [facility] Last Admin: 01/18/18 10:39 Dose: 50 mg Metoprolol Succinate (Toprol Xl) 25 mg PO DAILY [facility] Last Admin: 01/18/18 10:38 Dose: 25 mg Pantoprazole Sodium (Protonix Ec Tab) 40 mg PO DAILY [facility] Last Admin: 01/18/18 10:38 Dose: 40 mg Rosuvastatin Calcium (Crestor) 10 mg PO HS [facility] Last Admin: 01/17/18 22:51 Dose: 10 mg Tamsulosin HCl (Flomax) 0.4 mg PO DAILY [facility] Last Admin: 01/18/18 10:38 Dose: 0.4 mg Ticagrelor (Brilinta) 90 mg PO BID [facility] Last Admin: 01/18/18 10:39 Dose: 90 mg Vitamin B Complex/Vit C/Folic Acid (Nephro-Dina) 1 tab PO 0800 [facility] Last Admin: 01/18/18 08:38 Dose: 1 tab Results - Vital Signs Recent Vital Signs: Last Vital Signs Temp 98.8 F 01/18/18 07:00 Pulse 86 01/18/18 07:00 Resp 18 01/18/18 07:00 BP 132/77 01/18/18 07:00 Pulse Ox 97 01/18/18 07:00 - Labs Result Diagrams: 01/17/18 16:56 01/17/18 16:56 Labs: Laboratory Results - last 24 hr 01/17/18 01/17/18 01/17/18 16:36 16:56 16:56 WBC 8.7 RBC 4.22 L Hgb 11.0 L Hct 34.2 L MCV 81.1 MCH 26.0 L MCHC 32.0 L RDW 12.7 Plt Count 244 MPV 8.7 Neut % (Auto) 79.6 H Lymph % (Auto) 10.9 L Villalba % (Auto) 7.6 Eos % (Auto) 1.5 Baso % (Auto) 0.4 Neut # (Auto) 6.9 Lymph # (Auto) 0.9 L Villalba # (Auto) 0.7 Eos # (Auto) 0.1 Baso # (Auto) 0.0 PT 12.6 H INR 1.2 APTT 33 Sodium Potassium Chloride Carbon Dioxide Anion Gap BUN Creatinine Est GFR ( Amer) Est GFR (Non-Af Amer) POC Glucose (mg/dL) 114 H Random Glucose Hemoglobin A1c Calcium Total Bilirubin AST ALT Alkaline Phosphatase Troponin I Total Protein Albumin Globulin Albumin/Globulin Ratio Triglycerides Cholesterol LDL Cholesterol Direct HDL Cholesterol Blood Type Antibody Screen 01/17/18 01/17/18 01/17/18 16:56 16:56 17:01 WBC RBC Hgb Hct MCV MCH MCHC RDW Plt Count MPV Neut % (Auto) Lymph % (Auto) Villalba % (Auto) Eos % (Auto) Baso % (Auto) Neut # (Auto) Lymph # (Auto) Villalba # (Auto) Eos # (Auto) Baso # (Auto) PT INR APTT Sodium 139 Potassium 3.5 L Chloride 102 Carbon Dioxide 25 Anion Gap 16 BUN 46 H Creatinine 5.2 H Est GFR ( Amer) 14 Est GFR (Non-Af Amer) 12 POC Glucose (mg/dL) Random Glucose 119 H Hemoglobin A1c 4.7 Calcium 9.2 Total Bilirubin 0.8 AST 47 ALT 37 Alkaline Phosphatase 68 Troponin I 22.5000 H* Total Protein 7.1 Albumin 3.7 Globulin 3.4 Albumin/Globulin Ratio 1.1 Triglycerides 107 D Cholesterol 151 LDL Cholesterol Direct 95 HDL Cholesterol 34 Blood Type B POSITIVE Antibody Screen Negative 01/17/18 01/18/18 01/18/18 21:13 02:43 06:07 WBC RBC Hgb Hct MCV MCH MCHC RDW Plt Count MPV Neut % (Auto) Lymph % (Auto) Villalba % (Auto) Eos % (Auto) Baso % (Auto) Neut # (Auto) Lymph # (Auto) Villalba # (Auto) Eos # (Auto) Baso # (Auto) PT INR APTT Sodium Potassium Chloride Carbon Dioxide Anion Gap BUN Creatinine Est GFR ( Amer) Est GFR (Non-Af Amer) POC Glucose (mg/dL) 149 H 91 Random Glucose Hemoglobin A1c Calcium Total Bilirubin AST ALT Alkaline Phosphatase Troponin I 16.2000 H* Total Protein Albumin Globulin Albumin/Globulin Ratio Triglycerides Cholesterol LDL Cholesterol Direct HDL Cholesterol Blood Type Antibody Screen 01/18/18 11:12 WBC RBC Hgb Hct MCV MCH MCHC RDW Plt Count MPV Neut % (Auto) Lymph % (Auto) Villalba % (Auto) Eos % (Auto) Baso % (Auto) Neut # (Auto) Lymph # (Auto) Villalba # (Auto) Eos # (Auto) Baso # (Auto) PT INR APTT Sodium Potassium Chloride Carbon Dioxide Anion Gap BUN Creatinine Est GFR ( Amer) Est GFR (Non-Af Amer) POC Glucose (mg/dL) Random Glucose Hemoglobin A1c Calcium Total Bilirubin AST ALT Alkaline Phosphatase Troponin I 14.2000 H* Total Protein Albumin Globulin Albumin/Globulin Ratio Triglycerides Cholesterol LDL Cholesterol Direct HDL Cholesterol Blood Type Antibody Screen
--- NOTE | 2018-01-18 15:08 | CT ---
Date of service: 01/18/2018 PROCEDURE: CT HEAD WITHOUT CONTRAST. HISTORY: blurry vision, repeat CT COMPARISON: Noncontrast head CT 01/17/2018. TECHNIQUE: Axial computed tomography images were obtained through the head/brain without intravenous contrast. Radiation dose: Total exam DLP = 1036.18 mGy-cm. This CT exam was performed using one or more of the following dose reduction techniques: Automated exposure control, adjustment of the mA and/or kV according to patient size, and/or use of iterative reconstruction technique. FINDINGS: HEMORRHAGE: No intracranial hemorrhage. BRAIN: Brain parenchyma appears stable in the interval. This includes density at the inferior right caudate head likely reflecting chronic lacune with subacute infarction still a possibility. In even small lucency seen at the right basal ganglia laterally, not changed in the interval. MRI may be useful for follow-up. No interval suspicious lucency identified above or below the tentorium, or interval mass effect. Posterior fossa contents remain unremarkable. VENTRICLES: Unremarkable. No hydrocephalus. CALVARIUM: Unremarkable. PARANASAL SINUSES: Unremarkable as visualized. No significant inflammatory changes. MASTOID AIR CELLS: Unremarkable as visualized. No inflammatory changes. OTHER FINDINGS: None. IMPRESSION: No interval change in small lucencies at the right caudate head inferiorly and right basal ganglia laterally. No interval intracranial hemorrhage or mass-effect. If possible follow-up MRI may be useful for added characterization of these right-sided findings to attempt to differentiate subacute from chronic. Remainder the examination is otherwise unremarkable.
[2018-01-18 16:42] VITALS: RESP 20
--- NOTE | 2018-01-18 17:49 | CP.PCM.PN ---
Subjective - Date & Time of Evaluation Date of Evaluation: 01/18/18 Time of Evaluation: 12:45 - Subjective Subjective: clinically same Objective - Vital Signs/Intake and Output Vital Signs (last 24 hours): Temp Pulse Resp BP Pulse Ox 98.6 F 89 20 128/79 98 01/18/18 15:39 01/18/18 16:22 01/18/18 15:39 01/18/18 15:39 01/18/18 15:39 - Medications Medications: Current Medications Aspirin (Aspirin Chewable) 81 mg PO DAILY [facility] Last Admin: 01/18/18 10:38 Dose: 81 mg Ergocalciferol (Drisdol 50,000 Intl Units Cap) 1 cap PO Q7D [facility] Ferrous Gluconate (Fergon) 324 mg PO TID [facility] Last Admin: 01/18/18 17:40 Dose: 324 mg Heparin Sodium (Porcine) (Heparin) 5,000 units SC Q8 [facility] Last Admin: 01/18/18 06:09 Dose: 5,000 units Hydralazine HCl (Apresoline) 50 mg PO Q12H [facility] Last Admin: 01/18/18 10:39 Dose: 50 mg Metoprolol Succinate (Toprol Xl) 25 mg PO DAILY [facility] Last Admin: 01/18/18 10:38 Dose: 25 mg Pantoprazole Sodium (Protonix Ec Tab) 40 mg PO DAILY [facility] Last Admin: 01/18/18 10:38 Dose: 40 mg Rosuvastatin Calcium (Crestor) 10 mg PO HS [facility] Last Admin: 01/17/18 22:51 Dose: 10 mg Tamsulosin HCl (Flomax) 0.4 mg PO DAILY [facility] Last Admin: 01/18/18 10:38 Dose: 0.4 mg Ticagrelor (Brilinta) 90 mg PO BID [facility] Last Admin: 01/18/18 17:40 Dose: 90 mg Vitamin B Complex/Vit C/Folic Acid (Nephro-Dina) 1 tab PO 0800 [facility] Last Admin: 01/18/18 08:38 Dose: 1 tab - Labs Labs: 01/17/18 16:56 01/17/18 16:56 PT 12.6 SECONDS (9.7-12.2) H 01/17/18 16:56 INR 1.2 01/17/18 16:56 APTT 33 SECONDS (21-34) 01/17/18 16:56
--- NOTE | 2018-01-18 19:52 | PCM.STROKE ---
Interval History Critical Care Time Spent (in minutes): 35 Stroke Date: 01/17/18 Interval History: PGY1 Neurology Progress Note for Dr. Martienz Patient was seen at bedside this morning. Of note, he has no complains. Symptoms resolved. Patient hemodynamically stable for discharge. No other interval changes in current, PMHx, FHx, SocHx, ROS: other than documented above - Treatment DVT Prophylaxis: Heparin Antiplatelet: Plavix Anticoagulation: Other (Brilinta 90mg BID) Statin: Rosuvastatin Intensive: No - Education Written Stroke Education provided regarding: personal risk factors, stroke warning sign/symptoms, how to activate emergency medical services, need to follow up after discharge - Therapy Notes Physical therapy notes date reviewed: 01/18/18 Occupational therapy notes date reviewed: 01/18/18 I have reviewed care of the patient with: Dr. Martinez NIHSS Stroke Scale - Date/Time Evaluation Performed Date Performed: 01/17/18 Time Performed: 20:30 - How Severe is the Stroke Level of Consciousness: 0=Alert LOC to Questions: 0=Both comments correct LOC to commands: 0=Obeys both correctly Best Gaze: 0=Normal Visual: 0=No visual loss Facial: 0=Normal Motor Arm - Left: 0=No drift Motor Arm - Right: 0=No drift Motor Leg - Left: 0=No drift Motor Leg - Right: 0=No drift Limb Ataxia: 0=Absent Sensory: 0=Normal Best Language: 0=No aphasia Dysarthia: 0=Normal articulation Extinction & Inattention (Neglect): 0=Normal, no object Score: 0 Exam - Vital Sign Vital Signs: Temp Pulse Resp BP Pulse Ox 98.6 F 89 20 128/79 98 01/18/18 15:39 01/18/18 16:22 01/18/18 15:39 01/18/18 15:39 01/18/18 18:03 Constitutional: No distress, Normal appearing Ophthalmoscopic: absent: papilledema, hemorrhage Right Pupil: Reactive Left Pupil: Reactive Cranial Nerve: Normal: Visual Pugh, Extraocular movement intact, Facial Sensation, Facial Strength, Hearing, Palate/Tongue Movement, Shoulder Strength Motor: Tone Neuro motor strength exam: Left Upper Extremity: 5, Right Upper Extremity: 5, Left Lower Extremity: 5, Right Lower Extremity: 5 Sensation: Intact to pin Flexor Plantar Reflex: Normal Coordination: Finger/nose Gait: Normal with Absent Rhomberg Vascular Risk: Hypertension, Diabetes Mellitus, Lipids - Data reviewed Laboratory results: 01/17/18 16:56 01/17/18 16:56 Triglycerides 107 mg/dL (0-149) D 01/17/18 16:56 Cholesterol 151 mg/dL (0-199) 01/17/18 16:56 LDL Cholesterol Direct 95 mg/dL (0-129) 01/17/18 16:56 HDL Cholesterol 34 mg/dL (30-70) 01/17/18 16:56 Hemoglobin A1c 4.7 % (4.2-6.5) 01/17/18 16:56 CT Scan: Viewed and interpreted by me Assessment and Plan - Assessment and Plan (Free Text) Assessment: TIA * Telemetry * MRI contraindicated due to recent LAD stent placed 01/13/18 * TPA contraindicated due to patient arriving in the ED outside of the TPA window (> 3 hours) * CTA head and neck is recommended but is contraindicated due to creatinine=5.3 * Repeat non-contrast CT head reviewed; no changes since most recent CT * Q 4 hour neuro-checks. * Statin for goal LDL less than 70. * Permissive hypertension, do not treat blood pressure less than 220/110 (may start to normalize 48-hours after symptom onset). * NIHSS score =0 Please do not hesitate to call back with any new developments, data updates or questions. Thank you for the opportunity to participate in the care of this patient. Patient seen and case discussed with Dr. Michelle Layne PGY1
--- NOTE | 2018-01-18 22:37 | CP.PCM.CON ---
History of Present Illness - History of Present Illness History of Present Illness: CC: Visual disturbance This is a 52-year-old male with PMH of PMH of HTN and CKD, NSTEMI found status- post PCI with NEREYDA placed in LAD 01/12/18 admitted due to chief complaint of blurred vision. Per patient, this began earlier in the afternoon at around 1PM. The patient reports he was sitting at home and watching his favorite show (c [employer] roller [employer]) when he began noticing that he could only see half of the screen. Patient states he adjusted his position in attempt to view the TV better however his vision did not improved, which prompted him to come to the ED for evaluation. ROS is otherwise unremarkable for vision loss, nausea, vomiting, dizziness, chest pain, dyspnea, extremity weakness and/or numbness. Review of Systems - Review of Systems All systems: reviewed and no additional remarkable complaints except Physical Exam - Head Exam Head Exam: ATRAUMATIC, NORMAL INSPECTION, NORMOCEPHALIC - Neurological Exam Neurological exam: Alert, CN II-XII Intact, Normal Gait, Oriented x3, Reflexes Normal - Expanded Neurological Exam Expanded Patient oriented to: person, place, time Speech: Fluid Speech Cranial nerves: EOM's Intact: Normal, Facial Palsey w/Forehead Movement: Normal, Facial Palsey w/o Forehead Movement: Normal, Facial Sensation: Normal, Gag Reflex: Normal, Nystagmus: Normal, Tongue Deviation: Normal Cerebellar Function: Finger to Nose: Normal Upper motor neuron: Yuniel Neglect: Normal, Pronator Drift: Normal, Sensory Extinction: Normal Neuro motor strength exam: Left Upper Extremity: 5, Right Upper Extremity: 5, Left Lower Extremity: 5, Right Lower Extremity: 5 - Psychiatric Exam Psychiatric exam: Normal Affect, Normal Mood - Assessment and Plan (Free Text) Assessment: TIA Neuro follow up CAD s/p stent HTN CKD : Nephro on the case Past Patient History - Past Medical History & Family History Past Medical History?: Yes - Past Social History Smoking Status: Never Smoked - CARDIAC Hx Cardiac Disorders: Yes Hx Hypertension: Yes - PULMONARY Hx Respiratory Disorders: No - NEUROLOGICAL Hx Neurological Disorder: No - HEENT Hx HEENT Problems: Yes Other/Comment: wear glasses for poor vision - RENAL Hx Chronic Kidney Disease: Yes Other/Comment: kidney problem - ENDOCRINE/METABOLIC Hx Endocrine Disorders: No - HEMATOLOGICAL/ONCOLOGICAL Hx Blood Disorders: No - INTEGUMENTARY Hx Dermatological Problems: Yes Other/Comment: left side of face w/ some blood andleft neck skin tag - MUSCULOSKELETAL/RHEUMATOLOGICAL Hx Falls: No - GASTROINTESTINAL Hx Gastrointestinal Disorders: No - GENITOURINARY/GYNECOLOGICAL Hx Genitourinary Disorders: Yes Hx Prostate Problems: Yes - PSYCHIATRIC Hx Substance Use: No - SURGICAL HISTORY Hx Surgeries: Yes Hx Coronary Stent: Yes (2 stent jan 2018) - ANESTHESIA Hx Anesthesia: Yes Hx Anesthesia Reactions: No Meds Allergies/Adverse Reactions: Allergies Allergy/AdvReac Type Severity Reaction Status Date / Time No Known Allergies Allergy Verified 01/17/18 16:27 - Medications Medications: Current Medications Aspirin (Aspirin Chewable) 81 mg PO DAILY [facility] Last Admin: 01/18/18 10:38 Dose: 81 mg Enoxaparin Sodium (Lovenox) 30 mg SC DAILY [facility] Ergocalciferol (Drisdol 50,000 Intl Units Cap) 1 cap PO Q7D [facility] Ferrous Gluconate (Fergon) 324 mg PO TID [facility] Last Admin: 01/18/18 17:40 Dose: 324 mg Hydralazine HCl (Apresoline) 50 mg PO Q12H [facility] Last Admin: 01/18/18 22:05 Dose: 50 mg Metoprolol Succinate (Toprol Xl) 25 mg PO DAILY [facility] Last Admin: 01/18/18 10:38 Dose: 25 mg Pantoprazole Sodium (Protonix Ec Tab) 40 mg PO DAILY [facility] Last Admin: 01/18/18 10:38 Dose: 40 mg Potassium Chloride (K-Dur 20 Meq Er Tab) 40 meq PO BRK [facility] Rosuvastatin Calcium (Crestor) 10 mg PO HS [facility] Last Admin: 01/18/18 22:05 Dose: 10 mg Tamsulosin HCl (Flomax) 0.4 mg PO DAILY [facility] Last Admin: 01/18/18 10:38 Dose: 0.4 mg Ticagrelor (Brilinta) 90 mg PO BID [facility] Last Admin: 01/18/18 17:40 Dose: 90 mg Vitamin B Complex/Vit C/Folic Acid (Nephro-Dina) 1 tab PO 0800 [facility] Last Admin: 01/18/18 08:38 Dose: 1 tab Results - Vital Signs Recent Vital Signs: Last Vital Signs Temp 98.6 F 01/18/18 15:39 Pulse 89 01/18/18 16:22 Resp 20 01/18/18 15:39 BP 128/79 01/18/18 15:39 Pulse Ox 98 01/18/18 18:03 - Labs Result Diagrams: 01/17/18 16:56 01/17/18 16:56 Labs: Laboratory Results - last 24 hr 01/18/18 01/18/18 01/18/18 02:43 06:07 11:12 POC Glucose (mg/dL) 91 Troponin I 16.1999 H* 14.1999 H* 01/18/18 01/18/18 16:27 20:58 POC Glucose (mg/dL) 93 130 H Troponin I
[2018-01-19 06:40] LABS: HEMOGLOBIN 9.5 g/dL (12.0-18.0); MEAN CELL VOLUME 81.3 fL (80.0-94.0); MEAN CORPUSCULAR HEMOGLOBIN 26.8 pg (27.0-31.0); MEAN CORPUSCULAR HGB CONC 32.9 g/dL (33.0-37.0); MEAN PLATELET VOLUME 8.8 fL (7.2-11.7); RBC 3.56 Mil/uL (4.40-5.90); RED CELL DISTRIBUTION WIDTH 13.1 % (11.5-14.5); WHITE BLOOD COUNT 7.8 K/uL (4.8-10.8)
[2018-01-19 07:10] LABS: CALCIUM 8.8 mg/dl (8.6-10.4)
[2018-01-19] MEDS: Potassium Chloride 20 mEq ER Tab PO SCH (08:31)
[2018-01-19] MEDS: Multivitamin Vitamin B Complex (Nephro-Vite) Tab PO SCH (08:31)
[2018-01-19] MEDS: Metoprolol Succinate 25 mg XL Tab PO SCH (09:40)
[2018-01-19] MEDS: Enoxaparin 30 mg Syringe SC SCH (09:41)
[2018-01-19] MEDS: Pantoprazole 40 mg EC Tab PO SCH (09:41)
--- NOTE | 2018-01-19 10:29 | CP.PCM.PN ---
Objective - Vital Signs/Intake and Output Vital Signs (last 24 hours): Temp Pulse Resp BP Pulse Ox 99.1 F 87 20 131/84 99 01/19/18 07:00 01/19/18 07:00 01/19/18 07:00 01/19/18 07:00 01/19/18 07:00 - Medications Medications: Current Medications Aspirin (Aspirin Chewable) 81 mg PO DAILY [facility] Last Admin: 01/19/18 09:41 Dose: 81 mg Enoxaparin Sodium (Lovenox) 30 mg SC DAILY [facility] Last Admin: 01/19/18 09:41 Dose: 30 mg Ergocalciferol (Drisdol 50,000 Intl Units Cap) 1 cap PO Q7D [facility] Ferrous Gluconate (Fergon) 324 mg PO TID [facility] Last Admin: 01/19/18 09:40 Dose: 324 mg Hydralazine HCl (Apresoline) 50 mg PO Q12H [facility] Last Admin: 01/19/18 09:40 Dose: 50 mg Metoprolol Succinate (Toprol Xl) 25 mg PO DAILY [facility] Last Admin: 01/19/18 09:40 Dose: 25 mg Pantoprazole Sodium (Protonix Ec Tab) 40 mg PO DAILY [facility] Last Admin: 01/19/18 09:41 Dose: 40 mg Potassium Chloride (K-Dur 20 Meq Er Tab) 40 meq PO BRK [facility] Last Admin: 01/19/18 08:31 Dose: 40 meq Rosuvastatin Calcium (Crestor) 10 mg PO HS [facility] Last Admin: 01/18/18 22:05 Dose: 10 mg Tamsulosin HCl (Flomax) 0.4 mg PO DAILY [facility] Last Admin: 01/19/18 09:40 Dose: 0.4 mg Ticagrelor (Brilinta) 90 mg PO BID [facility] Last Admin: 01/19/18 09:40 Dose: 90 mg Vitamin B Complex/Vit C/Folic Acid (Nephro-Dina) 1 tab PO 0800 [facility] Last Admin: 01/19/18 08:31 Dose: 1 tab - Labs Labs: 01/19/18 06:31 01/19/18 06:31 PT 12.6 SECONDS (9.7-12.2) H 01/17/18 16:56 INR 1.2 01/17/18 16:56 APTT 33 SECONDS (21-34) 01/17/18 16:56
[2018-01-19 12:19] LABS: SQUAMOUS EPITHIAL 3 /hpf (0-5); URINE BACTERIA RARE (<OCC); URINE BILIRUBIN NEGATIVE (NEGATIVE); URINE BLOOD NEGATIVE (NEGATIVE); URINE CLARITY Clear (Clear); URINE COLOR Yellow (YELLOW); URINE GLUCOSE (UA) NORMAL (Normal); URINE LEUKOCYTE ESTERASE NEG Leu/uL (Negative); URINE PROTEIN 1+ mg/dL (NEGATIVE); URINE UROBILINOGEN NORMAL mg/dL (0.2-1.0)
--- NOTE | 2018-01-19 16:02 | CP.PCM.PN ---
Subjective - Date & Time of Evaluation Date of Evaluation: 01/19/18 Time of Evaluation: 09:15 - Subjective Subjective: sitting up in bed and confortable vital sign noted ok feels good Objective - Vital Signs/Intake and Output Vital Signs (last 24 hours): Temp Pulse Resp BP Pulse Ox 99.1 F 84 20 131/84 99 01/19/18 07:00 01/19/18 12:55 01/19/18 07:00 01/19/18 07:00 01/19/18 07:00 Intake and Output: 01/19/18 01/19/18 06:59 18:59 Intake Total 500 Balance 500 - Medications Medications: Current Medications Aspirin (Aspirin Chewable) 81 mg PO DAILY [facility] Last Admin: 01/19/18 09:41 Dose: 81 mg Enoxaparin Sodium (Lovenox) 30 mg SC DAILY [facility] Last Admin: 01/19/18 09:41 Dose: 30 mg Ergocalciferol (Drisdol 50,000 Intl Units Cap) 1 cap PO Q7D [facility] Ferrous Gluconate (Fergon) 324 mg PO TID [facility] Last Admin: 01/19/18 14:10 Dose: 324 mg Hydralazine HCl (Apresoline) 50 mg PO Q12H [facility] Last Admin: 01/19/18 09:40 Dose: 50 mg Metoprolol Succinate (Toprol Xl) 25 mg PO DAILY [facility] Last Admin: 01/19/18 09:40 Dose: 25 mg Pantoprazole Sodium (Protonix Ec Tab) 40 mg PO DAILY [facility] Last Admin: 01/19/18 09:41 Dose: 40 mg Potassium Chloride (K-Dur 20 Meq Er Tab) 40 meq PO BRK [facility] Last Admin: 01/19/18 08:31 Dose: 40 meq Rosuvastatin Calcium (Crestor) 10 mg PO HS [facility] Last Admin: 01/18/18 22:05 Dose: 10 mg Tamsulosin HCl (Flomax) 0.4 mg PO DAILY [facility] Last Admin: 01/19/18 09:40 Dose: 0.4 mg Ticagrelor (Brilinta) 90 mg PO BID [facility] Last Admin: 01/19/18 09:40 Dose: 90 mg Vitamin B Complex/Vit C/Folic Acid (Nephro-Dina) 1 tab PO 0800 [facility] Last Admin: 01/19/18 08:31 Dose: 1 tab - Labs Labs: 01/19/18 06:31 01/19/18 06:31 PT 12.6 SECONDS (9.7-12.2) H 01/17/18 16:56 INR 1.2 01/17/18 16:56 APTT 33 SECONDS (21-34) 01/17/18 16:56 - Constitutional Appears: No Acute Distress - Eye Exam Eye Exam: Conjunctival injection. absent: Nystagmus - ENT Exam ENT Exam: Mucous Membranes Moist - Neck Exam Neck Exam: absent: Lymphadenopathy - Respiratory Exam Respiratory Exam: Clear to Ausculation Bilateral, NORMAL BREATHING PATTERN - Cardiovascular Exam Cardiovascular Exam: absent: Gallop, JVD, Rubs - GI/Abdominal Exam GI & Abdominal Exam: Soft, Normal Bowel Sounds. absent: Bruit - Extremities Exam Extremities Exam: absent: Calf Tenderness - Back Exam Back Exam: absent: CVA tenderness (L), CVA tenderness (R) - Neurological Exam Neurological Exam: Alert - Psychiatric Exam Psychiatric exam: Normal Affect - Skin Skin Exam: absent: Cyanosis Assessment and Plan (1) CVA (cerebral vascular accident) Status: Acute (2) Acute non-ST segment elevation myocardial infarction Status: Acute (3) Chronic kidney disease, stage V Assessment & Plan: CVA NSTEMI, CAD s/p stent, hyperlipidemia Hypertensive Chronic Kidney Disease (I12.9) Chronic Kidney Disease (N18.5) Stage 5 with ? mg proteinuria (R80.9) likely due to HTN BPH acute systolic CHF Vit D def and anemia Plan No acute need for renal replacement therapy at this time. pt was educated about HD/PD/transplant options (LRT/DDRT). he was interested in PD Hypertension control with meds as ordered. Maintain hemodynamics stable. Avoid hypotension. Patient not on ACEI/ARB due to advanced CKD Monitor Input/Output, daily weights and renal function with basic metabolic panel continue with statins continue with weekly Vit D, Iron and MVI supplements avoid phlebotomy and IV line in non-dominant arm and save veins for future AV access Neuro and Cardiology followingpt. may need venous mapping and AV fistula in near future when he is stable Status: Acute
--- NOTE | 2018-01-19 22:29 | CP.PCM.PN ---
Subjective - Date & Time of Evaluation Date of Evaluation: 01/19/18 Time of Evaluation: 10:30 - Subjective Subjective: clinically same Objective - Vital Signs/Intake and Output Vital Signs (last 24 hours): Temp Pulse Resp BP Pulse Ox 97.4 F L 97 H 20 101/69 100 01/19/18 16:58 01/19/18 16:58 01/19/18 16:58 01/19/18 16:58 01/19/18 16:58 Intake and Output: 01/19/18 01/20/18 18:59 06:59 Intake Total 500 Balance 500 - Medications Medications: Current Medications Aspirin (Aspirin Chewable) 81 mg PO DAILY [facility] Last Admin: 01/19/18 09:41 Dose: 81 mg Enoxaparin Sodium (Lovenox) 30 mg SC DAILY [facility] Last Admin: 01/19/18 09:41 Dose: 30 mg Ergocalciferol (Drisdol 50,000 Intl Units Cap) 1 cap PO Q7D [facility] Ferrous Gluconate (Fergon) 324 mg PO TID [facility] Last Admin: 01/19/18 17:29 Dose: 324 mg Hydralazine HCl (Apresoline) 50 mg PO Q12H [facility] Last Admin: 01/19/18 21:35 Dose: 50 mg Metoprolol Succinate (Toprol Xl) 25 mg PO DAILY [facility] Last Admin: 01/19/18 09:40 Dose: 25 mg Pantoprazole Sodium (Protonix Ec Tab) 40 mg PO DAILY [facility] Last Admin: 01/19/18 09:41 Dose: 40 mg Potassium Chloride (K-Dur 20 Meq Er Tab) 40 meq PO BRK [facility] Last Admin: 01/19/18 08:31 Dose: 40 meq Rosuvastatin Calcium (Crestor) 10 mg PO HS [facility] Last Admin: 01/19/18 21:34 Dose: 10 mg Tamsulosin HCl (Flomax) 0.4 mg PO DAILY [facility] Last Admin: 01/19/18 09:40 Dose: 0.4 mg Ticagrelor (Brilinta) 90 mg PO BID [facility] Last Admin: 01/19/18 17:29 Dose: 90 mg Vitamin B Complex/Vit C/Folic Acid (Nephro-Dina) 1 tab PO 0800 [facility] Last Admin: 01/19/18 08:31 Dose: 1 tab - Labs Labs: 01/19/18 06:31 01/19/18 06:31 PT 12.6 SECONDS (9.7-12.2) H 01/17/18 16:56 INR 1.2 01/17/18 16:56 APTT 33 SECONDS (21-34) 01/17/18 16:56
[2018-01-20 01:21] VITALS: O2SAT 98
--- NOTE | 2018-01-20 07:24 | CP.PCM.PN ---
Subjective - Date & Time of Evaluation Date of Evaluation: 01/19/18 Time of Evaluation: 19:35 - Subjective Subjective: Patient with no cardiac events No chest pain and dyspnea S/P Non STEMI continue ASA, Brilinta, Statins and b blockers CKD mgt as per Nephrology Cardiac point of view cleared for discharge F/U with my office in 3-4 weeks Objective - Vital Signs/Intake and Output Vital Signs (last 24 hours): Temp Pulse Resp BP Pulse Ox 98.5 F 86 20 115/71 98 01/20/18 04:35 01/20/18 04:40 01/20/18 04:35 01/20/18 04:35 01/19/18 23:05 - Medications Medications: Current Medications Aspirin (Aspirin Chewable) 81 mg PO DAILY [facility] Last Admin: 01/19/18 09:41 Dose: 81 mg Enoxaparin Sodium (Lovenox) 30 mg SC DAILY [facility] Last Admin: 01/19/18 09:41 Dose: 30 mg Ergocalciferol (Drisdol 50,000 Intl Units Cap) 1 cap PO Q7D [facility] Ferrous Gluconate (Fergon) 324 mg PO TID [facility] Last Admin: 01/19/18 17:29 Dose: 324 mg Hydralazine HCl (Apresoline) 50 mg PO Q12H [facility] Last Admin: 01/19/18 21:35 Dose: 50 mg Metoprolol Succinate (Toprol Xl) 25 mg PO DAILY [facility] Last Admin: 01/19/18 09:40 Dose: 25 mg Pantoprazole Sodium (Protonix Ec Tab) 40 mg PO DAILY [facility] Last Admin: 01/19/18 09:41 Dose: 40 mg Potassium Chloride (K-Dur 20 Meq Er Tab) 40 meq PO BRK [facility] Last Admin: 01/19/18 08:31 Dose: 40 meq Rosuvastatin Calcium (Crestor) 10 mg PO HS [facility] Last Admin: 01/19/18 21:34 Dose: 10 mg Tamsulosin HCl (Flomax) 0.4 mg PO DAILY [facility] Last Admin: 01/19/18 09:40 Dose: 0.4 mg Ticagrelor (Brilinta) 90 mg PO BID [facility] Last Admin: 01/19/18 17:29 Dose: 90 mg Vitamin B Complex/Vit C/Folic Acid (Nephro-Dina) 1 tab PO 0800 [facility] Last Admin: 01/19/18 08:31 Dose: 1 tab - Labs Labs: 01/19/18 06:31 01/19/18 06:31 PT 12.6 SECONDS (9.7-12.2) H 01/17/18 16:56 INR 1.2 01/17/18 16:56 APTT 33 SECONDS (21-34) 01/17/18 16:56
[2018-01-20] MEDS: Potassium Chloride 20 mEq ER Tab PO SCH (07:50)
[2018-01-20] MEDS: Multivitamin Vitamin B Complex (Nephro-Vite) Tab PO SCH (07:50)
[2018-01-20 08:40] VITALS: BP 129/76; TEMP 98.4
[2018-01-20] MEDS: Metoprolol Succinate 25 mg XL Tab PO SCH (09:25)
[2018-01-20] MEDS: Pantoprazole 40 mg EC Tab PO SCH (09:25)
[2018-01-20] MEDS: Enoxaparin 30 mg Syringe SC SCH (09:28)
[2018-01-20] MEDS ORDERED: Epoetin Alfa 4000 UNIT/ML Inj SC SCH (10:00)
--- NOTE | 2018-01-20 11:06 | CP.PCM.PN ---
Subjective - Date & Time of Evaluation Date of Evaluation: 01/20/18 Time of Evaluation: 11:05 - Subjective Subjective: Nephrology Consultation Note: Assessment: stable CVA NSTEMI, CAD s/p stent, hyperlipidemia Hypertensive Chronic Kidney Disease (I12.9) Chronic Kidney Disease (N18.5) Stage 5 with 550 mg proteinuria (R80.9) likely d ue to HTN BPH acute systolic CHF Vit D def and anemia Plan No acute need for renal replacement therapy at this time. pt was educated about HD/PD/transplant options (LRT/DDRT). he was interested in PD Hypertension control with meds as ordered. Maintain hemodynamics stable. Avoid hypotension. Patient not on ACEI/ARB due to advanced CKD Monitor Input/Output, daily weights and renal function with basic metabolic panel continue with statins continue with weekly Vit D, Iron and MVI supplements. dose of epogen avoid phlebotomy and IV line in non-dominant arm and save veins for future AV access pt was advised to f/up with a urologist as outpt Neuro and Cardiology following d/c standing dose of KCL Dose meds/antibiotics for reduced GFR. Avoid fleets enema/magnesium based laxatives. Avoid nephrotoxins/NSAIDs/ iodinated contrast (unless needed emergently) Glycemic control Further work up/management as per primary team pt stable for d/c from renal perspective. Thanks for allowing me to participate in care of your patient. Will follow patient with you. Please call if any Qs. had d/w team Dr Clive Reyes Office: [phone] Chief Complaint; none Reason for consult: CKD 4 HPI: Pt is a 52 M with hx of Hypertension (diagnosed 2014) CKD 4/5 (f/up at [facility]) known for last 3-4 years recently admitted with NSTEMI s/p cardiac cath and stents placement and d/c home, came back with double vision and being managed for CVA. renal consult for CKD management. pt says vision better. no headache Denies OTC/herbal meds or NSAIDs Noted recent iodinated contrast exposure. No obvious episodes of low BP. pt says BP usually high now feels better symptoms of BPH improved with flomax ROS: feels good. want to go home Cardiovascular: No chest pain now Pulmonary: No shortness of breath now Gastrointestinal: denies abdominal pain No nausea. No vomiting. Genitourinary: No pain while urinating. Denies blood in urine. All other negative except as mentioned in HPI Physical Examination: General Appearance: Comfortable, in no acute respiratory distress, co-operative . Vitals reviewed and noted as below Head; Atraumatic, normocephalic ENT: no ulcers no thrush. Tongue is midline. Oropharynx: no rash or ulcers. EYES: Pupils are equal, round and reactive to light accommodation. Eye muscles and extraocular movement intact. Sclera is anicteric. Neck; supple no lymphadenopathy, no thyromegaly or bruit Lungs: Normal respiratory rate/effort. Breath sounds bilateral equal and clear Heart: Normal rate. s1s2 normal. No rub or gallop. Extremities: no edema. No varicose veins Neurological: Patient is alert, awake and oriented to person, place and time. No focal deficit. Strength bilateral appropriate and equal Skin: Warm and dry. Normal turgor. No rash. Palpitation: Normal elasticity for age Abdomen: Abdomen is soft. Bowel sounds +. There is no abdominal tenderness, no guarding/rigidity no organomegaly Psych: normal insight and normal affect/mood MSK: no joint tenderness or swelling. Digits and nails normal, no deformity : kidney or bladder not palpable Labs/imaging reviewed. Past medical history, past surgical history, family history, social history, allergy reviewed and noted as below Family hx: no hx of CKD. Rest non-contributory Objective - Vital Signs/Intake and Output Vital Signs (last 24 hours): Temp Pulse Resp BP Pulse Ox 98.4 F 89 20 129/76 98 01/20/18 07:30 01/20/18 07:30 01/20/18 07:30 01/20/18 07:30 01/20/18 07:30 - Medications Medications: Current Medications Aspirin (Aspirin Chewable) 81 mg PO DAILY [facility] Last Admin: 01/20/18 09:31 Dose: 81 mg Enoxaparin Sodium (Lovenox) 30 mg SC DAILY [facility] Last Admin: 01/20/18 09:28 Dose: 30 mg Epoetin Ham (Procrit) 4,000 unit SC TTS [facility] Ergocalciferol (Drisdol 50,000 Intl Units Cap) 1 cap PO Q7D [facility] Ferrous Gluconate (Fergon) 324 mg PO TID [facility] Last Admin: 01/20/18 09:26 Dose: 324 mg Hydralazine HCl (Apresoline) 50 mg PO Q12H [facility] Last Admin: 01/20/18 09:31 Dose: 50 mg Metoprolol Succinate (Toprol Xl) 25 mg PO DAILY [facility] Last Admin: 01/20/18 09:25 Dose: 25 mg Pantoprazole Sodium (Protonix Ec Tab) 40 mg PO DAILY [facility] Last Admin: 01/20/18 09:25 Dose: 40 mg Rosuvastatin Calcium (Crestor) 10 mg PO HS [facility] Last Admin: 01/19/18 21:34 Dose: 10 mg Tamsulosin HCl (Flomax) 0.4 mg PO DAILY [facility] Last Admin: 01/20/18 09:26 Dose: 0.4 mg Ticagrelor (Brilinta) 90 mg PO BID [facility] Last Admin: 01/20/18 09:26 Dose: 90 mg Vitamin B Complex/Vit C/Folic Acid (Nephro-Dina) 1 tab PO 0800 [facility] Last Admin: 01/20/18 07:50 Dose: 1 tab - Labs Labs: 01/19/18 06:31 01/19/18 06:31 PT 12.6 SECONDS (9.7-12.2) H 01/17/18 16:56 INR 1.2 01/17/18 16:56 APTT 33 SECONDS (21-34) 01/17/18 16:56
[2018-01-20 12:42] VITALS: PULSE 92
--- NOTE | 2018-01-20 14:02 | CP.PCM.PN ---
Subjective - Date & Time of Evaluation Date of Evaluation: 01/20/18 Time of Evaluation: 14:00 - Subjective Subjective: PT SEEN BY DR. Rimma PALAFOX AND CLEARED FOR D/C HOME TODAY. CLEARED BY CONSULTS. PT ALREADY TAKES ASA, BRILINTA, AND STATIN AT HOME. TO CONTINUE HOME MEDS. F/U WITH MD IN OFFICE OP. NO FURTHER ORDERS. -FOLLOW UP WITH DR. Rimma PALAFOX IN THE OFFICE WITHIN 7 DAYS---CALL THE OFFICE TO MAKE AN APPOINTMENT. -FOLLOW UP WITH DR. HINOJOSA (CARDIOLOGY) IN THE OFFICE WITHIN 3-4 WEEKS--CALL THE OFFICE TO MAKE AN APPOINTMENT. -CONTINUE HOME MEDICATIONS USUAL, INCLUDING YOUR BRILINTA, ASPIRIN, AND CRESTOR. -FOR FURTHER QUESTIONS OR CONCERNS, CONTACT DR. PALAFOX'S OFFICE. Objective - Vital Signs/Intake and Output Vital Signs (last 24 hours): Temp Pulse Resp BP Pulse Ox 98.4 F 92 H 20 129/76 98 01/20/18 07:30 01/20/18 12:41 01/20/18 07:30 01/20/18 07:30 01/20/18 07:30 - Medications Medications: Current Medications Aspirin (Aspirin Chewable) 81 mg PO DAILY [facility] Last Admin: 01/20/18 09:31 Dose: 81 mg Enoxaparin Sodium (Lovenox) 30 mg SC DAILY [facility] Last Admin: 01/20/18 09:28 Dose: 30 mg Epoetin Ham (Procrit) 4,000 unit SC TTS [facility] Ergocalciferol (Drisdol 50,000 Intl Units Cap) 1 cap PO Q7D [facility] Ferrous Gluconate (Fergon) 324 mg PO TID [facility] Last Admin: 01/20/18 13:11 Dose: 324 mg Hydralazine HCl (Apresoline) 50 mg PO Q12H [facility] Last Admin: 01/20/18 09:31 Dose: 50 mg Metoprolol Succinate (Toprol Xl) 25 mg PO DAILY [facility] Last Admin: 01/20/18 09:25 Dose: 25 mg Pantoprazole Sodium (Protonix Ec Tab) 40 mg PO DAILY [facility] Last Admin: 01/20/18 09:25 Dose: 40 mg Rosuvastatin Calcium (Crestor) 10 mg PO HS [facility] Last Admin: 01/19/18 21:34 Dose: 10 mg Tamsulosin HCl (Flomax) 0.4 mg PO DAILY [facility] Last Admin: 01/20/18 09:26 Dose: 0.4 mg Ticagrelor (Brilinta) 90 mg PO BID [facility] Last Admin: 01/20/18 09:26 Dose: 90 mg Vitamin B Complex/Vit C/Folic Acid (Nephro-Dina) 1 tab PO 0800 [facility] Last Admin: 01/20/18 07:50 Dose: 1 tab - Labs Labs: 01/19/18 06:31 01/19/18 06:31 PT 12.6 SECONDS (9.7-12.2) H 01/17/18 16:56 INR 1.2 01/17/18 16:56 APTT 33 SECONDS (21-34) 01/17/18 16:56
[2018-01-22] MEDS ORDERED: Ergocalciferol 50,000 Intl Units Cap PO SCH (10:00)
== END 2018-01-20 14:36 | disposition home or self-care (01) | DRG 69 ==
LOC: C.ER 16:19 → C.9E 18:35 → C.6T 19:47
PROVIDERS: ADMIT Internal Medicine Nephrology; ATTEND Internal Medicine Nephrology
DX: G45.9 Transient cerebral ischemic attack, unspecified (principal); I21.4 Non-ST elevation (NSTEMI) myocardial infarction; I50.21 Acute systolic (congestive) heart failure; I13.2 Hypertensive heart and chronic kidney disease with heart failure and with stage 5 chronic kidney disease, or end stage renal disease; N18.5 Chronic kidney disease, stage 5; D64.9 Anemia, unspecified; I25.10 Atherosclerotic heart disease of native coronary artery without angina pectoris; E55.9 Vitamin D deficiency, unspecified; H54.7 Unspecified visual loss; N40.0 Benign prostatic hyperplasia without lower urinary tract symptoms; R80.9 Proteinuria, unspecified; R29.700 NIHSS score 0; E78.5 Hyperlipidemia, unspecified; Z79.82 Long term (current) use of aspirin; Z95.5 Presence of coronary angioplasty implant and graft